=== PATIENT | female | born 1950 | race Caucasian/White ===

== ENCOUNTER → 2018-05-28 15:01 | Outpatient (CLI) | payer OTHER, SELFPAY ==
--- NOTE | 2018-05-28 | DI.MG.S_ITS ---
BILATERAL DIGITAL SCREENING MAMMOGRAM 3D/2D WITH CAD: 05/28/2018 CLINICAL: Routine screening. Comparison is made to exams dated: 05/26/2017 mammogram, 05/15/2017 mammogram, and 04/23/2016 mammogram - [facility]. There are scattered fibroglandular elements in both breasts. Current study was also evaluated with a Computer Aided Detection (CAD) system. There is a focal asymmetry in the left breast at 11 o'clock middle depth. No other significant masses, calcifications, or other findings are seen in either breast. IMPRESSION: INCOMPLETE: NEEDS ADDITIONAL IMAGING EVALUATION The focal asymmetry in the left breast is indeterminate. Additional views with possible ultrasound are recommended. This exam was interpreted at Station ID: [id number]. NOTE: For mammograms, a report in lay terms will be sent to the patient. Approximately 15% of breast malignancies will not be visualized mammographically. In the management of a palpable breast mass, a negative mammogram must not discourage biopsy of a clinically suspicious lesion. Electronically Signed By: Pura lozada/glen:05/28/2018 16:19:16 letter sent: Additional Imaging Needed ACR BI-RADS Category 0: Incomplete 3340F
== END ==
PROVIDERS: PCP Family Medicine; Visit Provider Family Medicine
DX: Z12.31 Encounter for screening mammogram for malignant neoplasm of breast (principal)
CPT/HCPCS: 77063; 77067

== ENCOUNTER → 2018-06-10 08:40 | Outpatient (CLI) | payer OTHER, SELFPAY ==
--- NOTE | 2018-06-10 | DI.US.S_ITS ---
LIMITED ULTRASOUND OF LEFT BREAST: 06/10/2018 CLINICAL: Patient returns today to evaluate a focal asymmetry in the left breast. Comparison is made to exams dated: 06/10/2018 mammogram, 05/28/2018 mammogram, 05/28/2018 mammogram, 05/15/2017 mammogram, 04/23/2016 mammogram, and 03/07/2015 mammogram - [facility]. Real-time and Doppler ultrasound of the left breast upper inner quadrant were performed. Valle scale images of the real-time examination were reviewed. There is a 0.5 x 0.4 x 0.3 cm oval circumscribed hypoechoic cyst with increased through transmission/posterior acoustic enhancement and no vascularity on Doppler ultrasound located in the left breast at 11 o'clock 3 cm from the nipple. There are fine internal non-vascular septations and minimal internal echogenic debris. This appears to correlate with the findings seen on mammography. IMPRESSION: BENIGN 1) 0.5 cm complicated cyst in the left breast at 11 o'clock 3 cm from the nipple, which appears to correlate with the findings seen on mammography. 2) There is no sonographic evidence of malignancy in the imaged left breast. Return to annual mammogram screening schedule is recommended. The patient is advised to monitor her breasts and to return sooner for re-evaluation should she feel anything grow or change. This exam was interpreted at Station ID: [id number]. Electronically Signed By: Bryan Engel M.D. ecl/:06/10/2018 10:17:28 letter sent: Normal Exam Ultrasound BI-RADS: 2 Benign
--- NOTE | 2018-06-10 | DI.MG.S_ITS ---
UNILATERAL LEFT DIGITAL DIAGNOSTIC MAMMOGRAM 3D/2D WITH ADDITIONAL VIEWS: 06/10/2018 CLINICAL: Additional evaluation requested from prior study. Comparison is made to exams dated: 05/28/2018 mammogram, 05/28/2018 mammogram, and 05/26/2017 mammogram - [facility]. There are scattered fibroglandular elements in left breast. Previously identified subcentimeter oval circumscribed focal asymmetry in the upper outer left breast near 11 o'clock position middle depth on comparison screening mammograms persists with additional views. IMPRESSION: INCOMPLETE: NEEDS ADDITIONAL IMAGING EVALUATION Previously identified subcentimeter oval circumscribed focal asymmetry in the upper outer left breast near 11 o'clock position middle depth on comparison screening mammograms persists with additional views. A targeted ultrasound is recommended for further evaluation, and will be performed immediately following this exam. This exam was interpreted at Station ID: [id number]. NOTE: For mammograms, a report in lay terms will be sent to the patient. Approximately 15% of breast malignancies will not be visualized mammographically. In the management of a palpable breast mass, a negative mammogram must not discourage biopsy of a clinically suspicious lesion. Electronically Signed By: Bryan Engel M.D. ecl/:06/10/2018 09:59:28 letter sent: Additional Imaging Needed ACR BI-RADS Category 0: Incomplete 3340F
== END ==
PROVIDERS: PCP Family Medicine; Visit Provider Family Medicine
DX: R92.8 Other abnormal and inconclusive findings on diagnostic imaging of breast (principal); N60.02 Solitary cyst of left breast
CPT/HCPCS: 76642; 77065; G0279

== ENCOUNTER → 2018-07-05 14:44 | Outpatient (CLI) | payer OTHER, SELFPAY | PROVIDERS: PCP Family Medicine; Visit Provider Family Medicine | DX: Z13.820 Encounter for screening for osteoporosis (principal); Z78.0 Asymptomatic menopausal state; Z82.62 Family history of osteoporosis; Z90.722 Acquired absence of ovaries, bilateral | CPT/HCPCS: 77080 ==

== ENCOUNTER → 2018-08-27 14:12 | Outpatient (CLI) | payer OTHER, SELFPAY ==
--- NOTE | 2018-08-27 | DI.RAD.S_ITS ---
PROCEDURE: XR KNEE RT 1TO2V INDICATIONS: BILATERAL KNEE PAIN TECHNIQUE: 2 views of the knee were acquired. This exam includes sunrise and lateral views. COMPARISON: [facility], , KNEE 3V LEFT, 03/13/2015, 14:35. FINDINGS: Bones: No fractures or dislocations. Mild lateral patellar subluxation, similar in extent compared to the contralateral side. No dislocation. No suspicious bony lesions. Soft tissues: Trace joint effusion. No suspicious soft tissue calcifications. IMPRESSION: Mild, symmetric lateral patellar subluxation with contralateral side, most likely physiologic. Trace right joint effusion. Dictated by: Jocelyn Collins M.D. on 08/27/2018 at 15:20 Approved by: Jocelyn Collins M.D. on 08/27/2018 at 15:21
--- NOTE | 2018-08-27 | DI.RAD.S_ITS ---
PROCEDURE: XR KNEE LT 1TO2V INDICATIONS: BILATERAL KNEE PAIN TECHNIQUE: 2 views of the knee were acquired. This exam includes sunrise and lateral views. COMPARISON: [facility], , KNEE 3V LEFT, 03/13/2015, 14:35. FINDINGS: Bones: No fractures or dislocations. Mild lateral patellar subluxation without dislocation. No suspicious bony lesions. Soft tissues: No joint effusion. No suspicious soft tissue calcifications. IMPRESSION: Mild lateral patellar subluxation. No other bony abnormalities. Dictated by: Jocelyn Collins M.D. on 08/27/2018 at 15:19 Approved by: Jocelyn Collins M.D. on 08/27/2018 at 15:20
--- NOTE | 2018-08-27 | DI.RAD.S_ITS ---
PROCEDURE: XR KNEE STANDING BI INDICATIONS: BILATERAL KNEE PAIN TECHNIQUE: AP standing view of each knee COMPARISON: [facility], , KNEE 3V LEFT, 03/13/2015, 14:35. FINDINGS: Bones: No acute fractures or dislocations. [id number] asymmetric medial compartment joint space loss in the right knee with trace marginal spur formation. Normally maintained left knee joint spaces. No suspicious bony lesions. Soft tissues: No suspicious soft tissue calcification. IMPRESSION: Asymmetric right medial compartment joint space loss with early osseous remodeling. Dictated by: Jocelyn Collins M.D. on 08/27/2018 at 16:32 Approved by: Jocelyn Collins M.D. on 08/27/2018 at 16:33
== END ==
PROVIDERS: PCP Family Medicine; Referring Provider Orthopaedic Surgery; Visit Provider Family Medicine
DX: M25.561 Pain in right knee (principal); M25.562 Pain in left knee; S83.012A Lateral subluxation of left patella, initial encounter; S83.011A Lateral subluxation of right patella, initial encounter
CPT/HCPCS: 73560; 73565

== ENCOUNTER 2019-06-06 14:08 | Outpatient (RCR) | payer OTHER, SELFPAY ==
--- NOTE | 2019-06-06 16:38 | PT.OIE ---
Current Diagnoses Unsteadiness on feet (06/06/19) Dizziness and giddiness (06/06/19) Visit Care Team Role Provider Type Monisha Christopher MD Primary Care Provider Physician Specialty: Family Practice Address: [address] [place] [address] [place], [address] Email: [email or web address] Maximo Daniels MD Attending Provider Physician Referring Provider Specialty: Ear, Nose, Throat Address: [address] [place] [address], [id number] Email: [email or web address] Physical Therapy Initial Evaluation PT-OP-A Visit Information Start: 06/06/19 14:18 Freq: Status: Active Protocol: Document 06/06/19 14:30 EG (Rec: 06/06/19 15:36 EG [email or web address]) Out-Patient Physical Therapy Visit Information Visit Information Visit Type Initial Evaluation Visit Start Time 14:30 Visit Stop Time 15:20 Total Visit Minutes 50 Visit Number 1 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 She reports that she had to take flagyl for her diverticultis and by the end of her time taking flaggil, her symptoms were worse than the actual disease. She would get dizzy standing up from sitting and had multiple symptoms of dizziness that have gotten much better since taking the medication. At that point, she had to take the medication several times a year. The last time taking the medication was in 2017 and currently the patient is taking probiotics and fiber pills with no more divirticulitis. Currently, the patient reports that she has not so much dizziness but more a feeling of unsteadiness and like she is going to pitch forward when on top of stairs. She mentions that this has happened whenever she is on top of steep stairs such as at the [employer] game and in order to feel steady, she needs to touch things. Patient does have stairs on side of property but she doesn't have to do these everyday and that stairs that are cery steep are what affect her opposed to stairs that are gradually descending. The patient reports that 75%-80% of time, she feels dizzy going down steep stairs. She thinks that it is possible her knees may play a role in walking down stairs because she is not as agile as she used to be. Patient denies any recent large falls and history of neck pain. Prior Treatments and Tests ENT Doctor Treatment Goals Patient/Caregiver Goals Patient would like to be less off balance when going down stairs. Personal Factors Other Personal Factors That May Effect Patient is hesitant about Therapy/Recovery scheduling due to Coronovirus History of Diverticulitis High Blood Pressure PT-OP-C Subjective Start: 06/06/19 14:18 Freq: Status: Active Protocol: Document 06/06/19 14:30 EG (Rec: 06/06/19 16:21 EG [email or web address]) Patient Questionnaires Dizziness Handicap Inventory DHI Score 6 DHI Functional Impairment 1 to 19% Impaired (Score 1-19) PT-OP-D Balance Start: 06/06/19 14:18 Freq: Status: Active Protocol: Document 06/06/19 14:30 EG (Rec: 06/06/19 16:21 EG [email or web address]) OP-PT Balance Assessment Standing Balance Static Standing Balance Ability Normal Dynamic Standing Balance Ability Normal Device Used Foam Pad Standing Balance Comments Standing with feet together, eyes open Standing with feet together, eyes closed Standing with feet together on foam pad, eyes open Standing with feet together on foam pad, eyes closed Balance Tests mCTSIB mCTSIB Position 1 30 sec mCTSIB Position 2 30 sec mCTSIB Position 3 30 sec mCTSIB Position 4 5 sec with need for touch down , found balance and held for 25 sec Babin Fall Scale Copyright Permission PT-OP-O Vestibular Start: 06/06/19 14:18 Freq: Status: Active Protocol: Document 06/06/19 14:30 EG (Rec: 06/06/19 16:21 EG [email or web address]) Vestibular Assessment Screening Tests Vestibular Artery Screen Negative Visual Testing Smooth Pursuits Horizontal - Smooth Pursuits Vertical - Saccades Horizontal - Saccades Vertical - Gaze Evoked Nystagmus With Fixation Negative Gaze Evoked Nystagmus Without Fixation Negative Thrust Head Negative DVA (Line Degradation) 2 Head Shake Negative Spontaneous Nystagmus Negative Vestibulo-Ocular Reflex (VOR1) Positive Vestibulo-Ocular Reflex Cancellation Negative Comments Vestibular Comments VORx1 experienced blurriness turning head to R Dizziness assessed on top of cement stairs - slight feeling of off balance but not overwhelming feeling she experiences at times No dizziness associated with therapy stairs PT-OP-Q Treatments Start: 06/06/19 14:18 Freq: Status: Active Protocol: Document 06/06/19 14:30 EG (Rec: 06/06/19 16:21 EG [email or web address]) Neuro Re-Education Treatment Balance Activities Feet Together, EC, foam pad Details Feet together, arms crossed, feet together, eyes closed ( foam pad used) Surface stable and foam pad Equipment blue foam pad Reps/Duration 30 sec to 2 min Comments Given for HEP Told to do in corner with chair in front for balance Vestibular Rehabilitation VORx1 Details Horizontal and Vertical Movements Reps/Duration 1 min side/side and up/down Comments given for HEP stare at letter on note pad PT-OP-T Assessment and Plan Start: 06/06/19 14:18 Freq: Status: Active Protocol: Document 06/06/19 14:30 EG (Rec: 06/06/19 16:21 EG [email or web address]) Physical Therapy Assessment Rehab Potential Rehabilitation Potential Excellent Evaluation Complexity Number of Personal Factors/Comorbidities 3 or More Number of Body Systems Impaired 4 or More Clinical Presentation at Evaluation Stable Impairments Impairments Activity Tolerance,Balance, Functional Activities, Vestibular Goals HEP Impairment HEP Battery Tester Field Goal (LTG) Patient will have independent HEP to increase vestibular function as well as strengthen visual and somatosensory function with no increase in symptoms in 6 weeks. LTG Duration 6 weeks Stairs Tolerance Impairment Stairs Tolerance Battery Tester Field Goal (LTG) Patient will decrease episodes of unsteadiness going down steep stairs by 75% in 6 weeks . LTG Duration 6 weeks Assessment Summary Assessment Patient is an otherwise healthy 69 year old female who reports to physical therapy for the feeling of unsteadiness when walking down steep stairs. Patient tested negative for all but one vestibular hypofunction tests with a complaint of blurriness of VORx1 with no complaint of dizziness. Patient appears to be visually dependent for balance and experiences unsteadiness when patient's vision is compromised. Patient is reliant on somatosensory system when vision is impaired . Patient will benefit from skilled therapies to increase vestibular system function to improve stability and balance when vision and somatosensory systems are compromised in order to perform steep stairs. Physical Therapy Plan Frequency and Duration Frequency of Treatment Every Other Week Duration of Treatment 6 weeks Plan of Care Start Date 06/06/19 Plan of Care End Date 07/18/19 Therapeutic Interventions Therapeutic Interventions Balance Training,Coordination Training,Home Exercise Program ,Neuromuscular Re-education, Patient/Caregiver Education, Self-Care/Home Management, Therapeutic Activities, Therapeutic Exercises, Vestibular Rehabilitation Next Visit Focus/Plan Next Note Type Treatment Note Next Visit Plan Assess SLS and walking while turning head. Assess HEP. Progress as tolerated I, Adamaris Shook DPT, supervised all treatment performed by, and agreed with the plan of care, as performed by Maine Wilks, SOWMYA.
--- NOTE | 2019-06-06 16:38 | PT.OPPOC ---
Physical, Occupational & Speech Therapy At [facility] Current Diagnoses Unsteadiness on feet (06/06/19) Dizziness and giddiness (06/06/19) Visit Care Team Role Provider Type Monisha Christopher MD Primary Care Provider Physician Specialty: Family Practice Address: [address] [place] [address], [id number] Email: [email or web address] Maximo Daniels MD Attending Provider Physician Referring Provider Specialty: Ear, Nose, Throat Address: [address] [place] [address], [id number] Email: [email or web address] Plan Of Care PT-OP-T Assessment and Plan Start: 06/06/19 14:18 Freq: Status: Active Protocol: Document 06/06/19 14:30 EG (Rec: 06/06/19 16:21 EG [email or web address]) Physical Therapy Assessment Rehab Potential Rehabilitation Potential Excellent Evaluation Complexity Number of Personal Factors/Comorbidities 3 or More Number of Body Systems Impaired 4 or More Clinical Presentation at Evaluation Stable Impairments Impairments Activity Tolerance,Balance, Functional Activities, Vestibular Goals HEP Impairment HEP Detention Goal (LTG) Patient will have independent HEP to increase vestibular function as well as strengthen visual and somatosensory function with no increase in symptoms in 6 weeks. LTG Duration 6 weeks Stairs Tolerance Impairment Stairs Tolerance Detention Goal (LTG) Patient will decrease episodes of unsteadiness going down steep stairs by 75% in 6 weeks . LTG Duration 6 weeks Assessment Summary Assessment Patient is an otherwise healthy 69 year old female who reports to physical therapy for the feeling of unsteadiness when walking down steep stairs. Patient tested negative for all but one vestibular hypofunction tests with a complaint of blurriness of VORx1 with no complaint of dizziness. Patient appears to be visually dependent for balance and experiences unsteadiness when patient's vision is compromised. Patient is reliant on somatosensory system when vision is impaired . Patient will benefit from skilled therapies to increase vestibular system function to improve stability and balance when vision and somatosensory systems are compromised in order to perform steep stairs. Physical Therapy Plan Frequency and Duration Frequency of Treatment Every Other Week Duration of Treatment 6 weeks Plan of Care Start Date 06/06/19 Plan of Care End Date 07/18/19 Therapeutic Interventions Therapeutic Interventions Balance Training,Coordination Training,Home Exercise Program ,Neuromuscular Re-education, Patient/Caregiver Education, Self-Care/Home Management, Therapeutic Activities, Therapeutic Exercises, Vestibular Rehabilitation Next Visit Focus/Plan Next Note Type Treatment Note Next Visit Plan Assess SLS and walking while turning head. Assess HEP. Progress as tolerated Plan of Care Dates Plan of Care Start Date 06/06/19 Plan of Care End Date 07/18/19 IAdamaris DPT, supervised all treatment performed by, and agreed with the plan of care, as performed by Maine Wilks, SOWMYA. Electronically Signed by: Adamaris Shook, PT 06/06/19 [id number] Please Sign and Return: I have reviewed this Plan of Care and certify that the skilled therapy services above are required to meet the patient?s needs. Physician Signature Date Printed Name and Credentials Clinical Instructor Signature Printed Name and Credentials
--- NOTE | 2019-11-10 07:19 | PT.OPDS ---
Current Diagnoses Unsteadiness on feet (06/06/19) Dizziness and giddiness (06/06/19) Visit Care Team Role Provider Type Monisha Christopher MD Primary Care Provider Physician Specialty: Family Practice Address: [address] [place] [address], [facility] [place], [address] Email: [email or web address] Maximo Daniels MD Attending Provider Physician Referring Provider Specialty: Ear, Nose, Throat Address: [address] [place] [address], [id number] Email: [email or web address] Visit Number Visit Number 1 Discharge Summary PT-OP-B Current Condition Start: 06/06/19 14:18 Freq: Status: Active Protocol: Document 06/06/19 14:30 EG (Rec: 06/06/19 14:45 EG [id number]) Current Condition History of Current Condition Onset Date 06/06/2019 Current Complaints Feeling of Dizziness looking down stairs History of Current Condition Patient reports that she never had a problem with dizziness until she was diagnosed with diverticulitis years ago. She reports that she had to take flagyl for her diverticultis and by the end of her time taking flaggil, her symptoms were worse than the actual disease. She would get dizzy standing up from sitting and had multiple symptoms of dizziness that have gotten much better since taking the medication. At that point, she had to take the medication several times a year. The last time taking the medication was in 2017 and currently the patient is taking probiotics and fiber pills with no more divirticulitis. Currently, the patient reports that she has not so much dizziness but more a feeling of unsteadiness and like she is going to pitch forward when on top of stairs. She mentions that this has happened whenever she is on top of steep stairs such as at the [employer] game and in order to feel steady, she needs to touch things. Patient does have stairs on side of property but she doesn't have to do these everyday and that stairs that are cery steep are what affect her opposed to stairs that are gradually descending. The patient reports that 75%-80% of time, she feels dizzy going down steep stairs. She thinks that it is possible her knees may play a role in walking down stairs because she is not as agile as she used to be. Patient denies any recent large falls and history of neck pain. Prior Treatments and Tests ENT Doctor Treatment Goals Patient/Caregiver Goals Patient would like to be less off balance when going down stairs. Personal Factors Other Personal Factors That May Effect Patient is hesitant about Therapy/Recovery scheduling due to Coronovirus History of Diverticulitis High Blood Pressure PT-OP-C Subjective Start: 06/06/19 14:18 Freq: Status: Active Protocol: Document 06/06/19 14:30 EG (Rec: 06/06/19 16:21 EG [id number]) Patient Questionnaires Dizziness Handicap Inventory DHI Score 6 DHI Functional Impairment 1 to 19% Impaired (Score 1-19) PT-OP-D Balance Start: 06/06/19 14:18 Freq: Status: Active Protocol: Document 06/06/19 14:30 EG (Rec: 06/06/19 16:21 EG [email or web address]) OP-PT Balance Assessment Standing Balance Static Standing Balance Ability Normal Dynamic Standing Balance Ability Normal Device Used Foam Pad Standing Balance Comments Standing with feet together, eyes open Standing with feet together, eyes closed Standing with feet together on foam pad, eyes open Standing with feet together on foam pad, eyes closed Balance Tests mCTSIB mCTSIB Position 1 30 sec mCTSIB Position 2 30 sec mCTSIB Position 3 30 sec mCTSIB Position 4 5 sec with need for touch down , found balance and held for 25 sec Babin Fall Scale Copyright Permission PT-OP-O Vestibular Start: 06/06/19 14:18 Freq: Status: Active Protocol: Document 06/06/19 14:30 EG (Rec: 06/06/19 16:21 EG [id number]) Vestibular Assessment Screening Tests Vestibular Artery Screen Negative Visual Testing Smooth Pursuits Horizontal - Smooth Pursuits Vertical - Saccades Horizontal - Saccades Vertical - Gaze Evoked Nystagmus With Fixation Negative Gaze Evoked Nystagmus Without Fixation Negative Thrust Head Negative DVA (Line Degradation) 2 Head Shake Negative Spontaneous Nystagmus Negative Vestibulo-Ocular Reflex (VOR1) Positive Vestibulo-Ocular Reflex Cancellation Negative Comments Vestibular Comments VORx1 experienced blurriness turning head to R Dizziness assessed on top of cement stairs - slight feeling of off balance but not overwhelming feeling she experiences at times No dizziness associated with therapy stairs PT-OP-T Assessment and Plan Start: 06/06/19 14:18 Freq: Status: Active Protocol: Document 11/10/19 07:19 MB (Rec: 11/10/19 07:19 MB [id number]) Physical Therapy Plan Discharge Physical Therapy Discharge Reasons No Longer Attending PT Discharge Comments Pt has not been seen since before COVID closure. Clinic has left message to inquire about con't PT and pt has not returned call. Will d/c PT.
== END 2019-11-10 13:14 ==
LOC: PHYS 14:08
PROVIDERS: PCP Family Medicine; Referring Provider Otolaryngology; Visit Provider Otolaryngology
DX: R42 Dizziness and giddiness (principal); R26.81 Unsteadiness on feet
CPT/HCPCS: 97161

== ENCOUNTER → 2019-06-14 15:18 | Outpatient (CLI) | payer OTHER, SELFPAY ==
--- NOTE | 2019-06-14 | DI.MG.S_ITS ---
BILATERAL DIGITAL SCREENING MAMMOGRAM 3D/2D WITH CAD: 06/14/2019 CLINICAL: Routine screening. Comparison is made to exams dated: 06/10/2018 mammogram, 05/28/2018 mammogram, and 05/28/2018 mammogram - [facility]. There are scattered fibroglandular elements in both breasts. Current study was also evaluated with a Computer Aided Detection (CAD) system. There is a biopsy site marker on the right breast. There is a 0.6 cm oval equal density focal asymmetry in the left breast at 12 o'clock anterior depth. This is more prominent. There also is a new 0.7 cm irregular equal density asymmetry in the left breast middle depth superior region seen on the mediolateral oblique view only. No other significant masses, calcifications, or other findings are seen in either breast. IMPRESSION: INCOMPLETE: NEEDS ADDITIONAL IMAGING EVALUATION The 0.6 cm oval equal density focal asymmetry in the left breast at 12 o'clock anterior depth is indeterminate. Additional views with possible ultrasound are recommended. The new 0.7 cm irregular equal density asymmetry in the left breast middle depth superior region seen on the mediolateral oblique view only is indeterminate. Additional views with possible ultrasound are recommended. This exam was interpreted at Station ID: [id number]. NOTE: For mammograms, a report in lay terms will be sent to the patient. Approximately 15% of breast malignancies will not be visualized mammographically. In the management of a palpable breast mass, a negative mammogram must not discourage biopsy of a clinically suspicious lesion. Electronically Signed By: Prashant castanon/glen:06/14/2019 16:43:05 letter sent: Additional Imaging Needed ACR BI-RADS Category 0: Incomplete 3340F
== END ==
PROVIDERS: PCP Family Medicine; Referring Provider Family Medicine; Visit Provider Family Medicine
DX: Z12.31 Encounter for screening mammogram for malignant neoplasm of breast (principal)
CPT/HCPCS: 77063; 77067

== ENCOUNTER → 2019-06-23 14:36 | Outpatient (CLI) | payer OTHER, SELFPAY ==
--- NOTE | 2019-06-23 | DI.MG.S_ITS ---
UNILATERAL LEFT DIGITAL DIAGNOSTIC MAMMOGRAM 3D/2D WITH ADDITIONAL VIEWS: 06/23/2019 CLINICAL: Additional evaluation requested from prior study. Comparison is made to exams dated: 06/14/2019 mammogram, 06/10/2018 mammogram, 05/28/2018 mammogram, and 05/28/2018 mammogram - [facility]. There are scattered fibroglandular elements in left breast. There is a 0.6 cm oval equal density focal asymmetry with a circumscribed margin in the left breast at 12 o'clock anterior depth. This is seen in additional views. The benign 0.7 cm irregular equal density asymmetry in the left breast middle depth superior region seen on the mediolateral oblique view only is no longer seen. This is consistent with summation artifact. No other significant masses or calcifications are seen in the breast. IMPRESSION: INCOMPLETE: NEEDS ADDITIONAL IMAGING EVALUATION The persistent 0.6 cm oval equal density focal asymmetry in the left breast at 12 o'clock anterior depth is indeterminate. An ultrasound is recommended for further evaluation and is scheduled to immediately follow this study. The previously described Mediolateral oblique view asymmetry in the left breast seen posterior and slightly superior to the above described 0.6cm oval focal asymmetry disperses with additional views and is consistent with summation artifact. This exam was interpreted at Station ID: [id number]. NOTE: For mammograms, a report in lay terms will be sent to the patient. Approximately 15% of breast malignancies will not be visualized mammographically. In the management of a palpable breast mass, a negative mammogram must not discourage biopsy of a clinically suspicious lesion. Electronically Signed By: Prashant Cole M.D. aty/:06/23/2019 15:22:27 ACR BI-RADS Category 0: Incomplete 3340F
--- NOTE | 2019-06-23 15:33 | DI.US.S_ITS ---
Patient Name: KARTHIKEYAN LAWSON date: 1950 Sex: F Attending Physician: Candi Indications: Date: 06/23/2019 15:28 At the request of: ELANN STEELE Procedure: US breast LT limited ULTRASOUND OF LEFT BREAST: 06/23/2019 CLINICAL: Patient returns for additional imaging over a suspected mass in the left breast. Comparison is made to exams dated: 06/14/2019 mammogram, 06/10/2018 ultrasound, 06/10/2018 mammogram, 05/28/2018 mammogram, 05/28/2018 mammogram, and 05/26/2017 mammogram - [facility]. Color flow and real-time ultrasound of the left breast were performed. Valle scale images of the real-time examination were reviewed. There is a 0.4 cm x 0.5 cm x 0.5 cm oval cyst in the left breast at 11 o'clock anterior depth 3 cm from the nipple. This oval cyst is hypoechoic with internal echoes. This may also represent a cluster of adjacent small cysts. Color flow imaging demonstrates that there is no vascularity present. This correlates with mammography findings. No other suspicious findings visualized in the imaged left breast. IMPRESSION: PROBABLY BENIGN The 0.4 cm x 0.5 cm x 0.5 cm oval cyst in the left breast resembles a complicated cyst versus cluster of small cysts, and is probably benign. A follow-up left mammogram and an ultrasound in 6 months is recommended to demonstrate stability. This exam was interpreted at Station ID: [id number]. Electronically Signed By: Prashant Cole M.D. aty/:06/23/2019 15:56:16 letter sent: Followup Recommended Ultrasound BI-RADS: 3 Probably benign
== END ==
PROVIDERS: PCP Family Medicine; Referring Provider Family Medicine; Visit Provider Family Medicine
DX: R92.8 Other abnormal and inconclusive findings on diagnostic imaging of breast (principal); N60.02 Solitary cyst of left breast
CPT/HCPCS: 76642; 77065; G0279

== ENCOUNTER → 2019-10-26 14:54 | Outpatient (CLI) | payer OTHER, SELFPAY ==
--- NOTE | 2019-10-26 15:13 | DI.ECHO.S_ITS ---
Echocardiogram Report + + :Name: KARTHIKEYAN LAWSON Study Date: 10/26/2019 Height: 62 in : :[facility] Weight: 175 lb : : Gender: Female BSA: 1.8 m2 : :: 1950 Age: 69 yrs BP: 140/86 mmHg: :Reason For Study: BRADYCARDIA : :Ordering Physician: IVETTE, : :LEANN Performed By: Ximena New : :Referring: LEANN STEELE : + + Interpretation Summary The left ventricle is normal in size and wall thickness. The ejection fraction is estimated to be 60-65%. There are no focal wall motion abnormalities. Diastolic parameters suggest probable normal left ventricular diastolic function and normal filling pressures. The right ventricle is normal in size and function. The right ventricular systolic pressure is estimated to be at least 37 mmHg based on an estimated right atrial pressure of 8 mm Hg. The left atrium is mildly dilated. Right atrial size is normal. There is mild mitral regurgitation. There is no other significant valvular heart disease. The ascending aorta is mildly enlarged. Procedure: A two-dimensional transthoracic echocardiogram with color flow and Doppler was performed. The study quality was technically adequate. The patient was in sinus bradycardia with heart rates between 44-50 bpm during the exam. Left Ventricle: The left ventricle is normal in size and wall thickness. The ejection fraction is estimated to be 60-65%. There are no focal wall motion abnormalities. Diastolic parameters suggest probable normal left ventricular diastolic function and normal filling pressures. Right Ventricle: The right ventricle is normal in size and function. Atria: The left atrium is mildly dilated. Right atrial size is normal. There is no Doppler evidence for an interatrial shunt. Mitral Valve: The mitral valve is normal in structure and function. There is mild mitral regurgitation. Aortic Valve: The aortic valve is trileaflet. The aortic valve opens well. There is no aortic valve stenosis. No aortic regurgitation is present. Tricuspid Valve: The tricuspid valve is normal in structure and function. There is trace tricuspid regurgitation. The right ventricular systolic pressure is estimated to be at least 37 mmHg based on an estimated right atrial pressure of 8 mm Hg. Pulmonic Valve: The pulmonic valve is not well seen, but is grossly normal. There is no pulmonic valvular regurgitation. There is no other significant valvular heart disease. Great Vessels: The aortic root is normal size. The ascending aorta is mildly enlarged. The IVC is dilated (diameter is greater than 2.1 cm) yet it collapses greater than 50% with a sniff. This suggests a right atrial pressure of 8 mm Hg. Pericardium/ Pleura There is no pericardial effusion. There is no pleural effusion. MMode/2D Measurements & Calculations LVIDd: 4.9 cm LVOT diam: 1.9 cm LVIDs: 3.5 cm Ao root diam: 3.1 cm FS: 28.1 % asc Aorta Diam: 3.6 cm EPSS: 0.37 cm Ao Arch Diam (Prox Trans): 3.2 cm IVSd: 0.72 cm LVPWd: 0.65 cm LV lewis. diameter/BSA (cm/m^2): 2.7 LV sys. diameter/BSA (cm/m^2): 1.9 LA A2 area: 22.6 cm2 RA long axis: 4.8 cm LA A4 area: 16.5 cm2 RA area: 15.2 cm2 LA length (vol): 4.9 cm RA vol: 40.7 ml LA vol: 64.6 ml RA : 22.5 ml/m2 LA vol index: 35.8 ml/m2 IVC diam: 2.1 cm RVD1 (basal): 2.6 cm TAPSE: 2.9 cm Doppler Measurements & Calculations Ao V2 max: 143.9 cm/sec LVOT Max Charlie: 101.9 cm/sec Ao V2 mean: 97.9 cm/sec LV V1 max P.2 mmHg Ao max P.3 mmHg LV V1 VTI: 25.3 cm Ao mean P.3 mmHg DWAYNE(I,D): 2.0 cm2 Ao V2 VTI: 35.8 cm DWAYNE(V,D): 2.0 cm2 sev ratio: 0.71 DWAYNE indexed to BSA (cm^2/m^2): 1.1 MV E max charlie: 90.9 cm/sec TR max charlie: 242.2 cm/sec MV A max charlie: 97.1 cm/sec TR max P.5 mmHg MV E/A: 0.94 PA V2 max: 81.7 cm/sec Med Peak E' Charlie: 8.6 cm/sec PA V2 mean: 58.2 cm/sec E/E' med: 10.5 PA mean P.5 mmHg Lat Peak E' Charlie: 9.3 cm/sec PA pr(Accel): 34.5 mmHg E/E' lat: 9.8 E/e' average: 10.1 MV dec time: 0.18 sec SV(LVOT): 71.9 ml Reading Physician:05:09 PM
== END ==
PROVIDERS: PCP Family Medicine; Referring Provider Family Medicine; Visit Provider Family Medicine
DX: I34.0 Nonrheumatic mitral (valve) insufficiency (principal); I77.89 Other specified disorders of arteries and arterioles; R00.1 Bradycardia, unspecified
CPT/HCPCS: 93306

== ENCOUNTER → 2019-11-09 14:01 | Outpatient (CLI) | payer OTHER, SELFPAY ==
--- NOTE | 2019-12-01 11:00 | PM.CARDMON.1 ---
Stained Glass [facility] Report Referral & Results Date Patient Seen: 11/09/19 Requesting provider: Monisha Christopher Indication: Bradycardia Duration of monitoring (days): 13 Diary information: There was 1 patient triggered event and 1 patient diary entry Both these events were associated with atrial fibrillation which occurred during 2% of the monitoring. Data: Minimum heart rate identified was 28 beats per minute at 07:38 on 11/21/2019. Maximum sinus heart rate was 103 beats per minute at 13:41 on 11/21/2019 Maximum overall heart rate was 194 beats per minute at 21:17 on 11/16/2019 during a run of atrial fibrillation Less than 1% of identified beats rather ventricular supraventricular ectopic in origin Patient had 49 runs of SVT with the fastest being 169 beats per minute during a 4 beat run. The longest lasted 25.0 seconds at a rate of 121 beats per minute which suggest more likely atrial tachycardia Patient also had episodes of atrial fibrillation ranging from 78-190 4 beats per minute, the longest lasted 6 hours in 10 minutes at a rate of 137 beats per minute on average. Patient had 1 pause that was 4.8 seconds with evidence of an idioventricular rhythm during this pause. Impression: Patient with paroxysmal atrial fibrillation including a 6+ hour run Patient with a 4+ second pause with 80 ventricular rhythm as above Patient also with other supraventricular and ventricular dysrhythmias, as above Clinical correlation and possible cardiology consultation suggested.
== END ==
PROVIDERS: Family Provider Family Medicine; PCP Family Medicine; Referring Provider Family Medicine; Visit Provider Family Medicine
DX: R00.1 Bradycardia, unspecified (principal)
CPT/HCPCS: 0296T; 0298T

== ENCOUNTER → 2020-01-25 15:10 | Outpatient (CLI) | payer OTHER, SELFPAY ==
--- NOTE | 2020-01-25 15:11 | DI.MG.S_ITS ---
UNILATERAL LEFT DIGITAL DIAGNOSTIC MAMMOGRAM 3D/2D SHORT-TERM FOLLOW-UP: 01/25/2020 CLINICAL: Patient returns for a 6 month follow up of the left breast. Comparison is made to exams dated: 06/23/2019 mammogram, 06/14/2019 mammogram, and 06/10/2018 mammogram - [facility]. There are scattered fibroglandular elements in left breast. There is an oval low density mass with a circumscribed margin in the left breast at 11 o'clock anterior depth. This is not significantly changed. No other significant masses or calcifications are seen in the breast. IMPRESSION: INCOMPLETE: NEEDS ADDITIONAL IMAGING EVALUATION The oval low density mass in the left breast is indeterminate. An ultrasound is recommended. This exam was interpreted at Station ID: [id number]. NOTE: For mammograms, a report in lay terms will be sent to the patient. Approximately 15% of breast malignancies will not be visualized mammographically. In the management of a palpable breast mass, a negative mammogram must not discourage biopsy of a clinically suspicious lesion. Electronically Signed By: Bora nguyen/glen:01/25/2020 15:40:33 ACR BI-RADS Category 0: Incomplete [id number]
--- NOTE | 2020-01-25 15:12 | DI.US.S_ITS ---
LIMITED ULTRASOUND OF LEFT BREAST: 01/25/2020 CLINICAL: Patient returns today to evaluate a focal asymmetry in the left breast. Comparison is made to exams dated: 01/25/2020 mammogram, 06/23/2019 ultrasound, 06/23/2019 mammogram, 06/14/2019 mammogram, 06/10/2018 ultrasound, and 06/10/2018 mammogram - [facility]. Real-time ultrasound of the left breast 11 o'clock region was performed on the area of interest. There is a 0.5 cm x 0.5 cm x 0.5 cm oval cyst in the left breast at 11 o'clock anterior depth. This oval cyst is hypoechoic with a well-defined boundary and internal echoes. This abnormality is not significantly changed and correlates with mammography findings. IMPRESSION: PROBABLY BENIGN The 0.5 cm x 0.5 cm x 0.5 cm oval cyst in the left breast is consistent with a complicated cyst and is probably benign. Follow-up mammogram and ultrasound in 6 months is recommended. A follow-up mammogram and an ultrasound in 6 months is recommended to demonstrate stability. Patient will be due for screening mammography of the contralateral breast at that time. This exam was interpreted at Station ID: [id number]. Electronically Signed By: Bora nguyen/:01/25/2020 17:07:53 letter sent: Followup Recommended Ultrasound BI-RADS: 3 Probably benign
== END ==
PROVIDERS: Family Provider Family Medicine; PCP Family Medicine; Referring Provider Family Medicine; Visit Provider Family Medicine
DX: R92.8 Other abnormal and inconclusive findings on diagnostic imaging of breast (principal); N60.02 Solitary cyst of left breast
CPT/HCPCS: 76642; 77065; G0279

== ENCOUNTER → 2020-02-15 13:13 | Outpatient (CLI) | payer OTHER, SELFPAY ==
[2020-02-15 14:20] LABS: COVID19 -Nasal RAPID Negative (Negative)
== END ==
PROVIDERS: Family Provider Family Medicine; PCP Family Medicine; Visit Provider Physician Assistant
DX: Z11.59 Encounter for screening for other viral diseases (principal)
CPT/HCPCS: 87635

== ENCOUNTER → 2020-02-17 09:09 | Outpatient (CLI) | payer OTHER, SELFPAY ==
--- NOTE | 2020-02-17 17:31 | DI.NM.S_ITS ---
DATE OF SERVICE: 02/17/2020 PROCEDURE PERFORMED: Exercise treadmill stress and rest myocardial perfusion imaging study with gating to assess ejection fraction and regional wall motion. ORDERING PROVIDER: Sudhakar Butcher M.D. INDICATIONS: The patient is a 69-year-old female with paroxysmal atrial fibrillation and tachy-viri syndrome. CARDIAC STRESS: The patient was able to exercise for 8 minutes 6 seconds on a standard Lenin protocol suggesting very good exercise capacity with an WILFRIDO of - 35%. She had a normal heart rate and blood pressure response to exercise, achieving a maximum heart rate of 175 bpm (115% of her predicted maximum). She had no chest discomfort. Her resting ECG shows sinus bradycardia at [address]-segment abnormality. With stress, there are no obvious ST- segment abnormalities, although there is considerable motion artifact, and has occasional PACs, often in brief runs, and occasional PVCs, occasionally in couplets but no concerning sustained arrhythmia. At 6 minutes 56 seconds of exercise, at a heart rate of 126 bpm, 26.3 millicuries of technetium-99 Myoview were injected. The patient was imaged 15 minutes later, using a gated SPECT acquisition protocol. Earlier in the day, she was injected with 14.2 millicuries of technetium-99 Myoview at rest and was imaged 30 minutes later, again using a gated SPECT acquisition protocol. FINDINGS: 1. Raw Data: There is fair myocardial tracer uptake but dense breast shadows clearly produce some attenuation. Lung/heart ratio was normal at 0.39 with a normal TID ratio of 0.94. 2. Quantitative Gated SPECT: Post-stress ejection fraction is estimated at 79% without any focal wall motion abnormality and specifically the apex appears to have brisk contractility. The resting ejection fraction is 71% with a resting end-diastolic volume of 82 mL. 3. Myocardial Perfusion Imaging: Post-stress supine images show a fairly normal myocardial perfusion pattern although with mildly reduced tracer activity at the apex and the distal inferolateral wall, both of which completely resolved on prone imaging revealing a uniform, homogeneous perfusion pattern suggesting that these defects reflect attenuation artifact. The resting images show an identical perfusion pattern to that of the post-stress supine images without any areas of improvement. IMPRESSION: 1. Normal myocardial perfusion study. 2. Subtle fixed apical and distal inferolateral defect, all of which resolves on prone imaging, suggesting it reflects attenuation artifact. There is no compelling evidence for myocardial ischemia or previous myocardial infarction. 3. Normal left ventricular systolic function without any focal wall motion abnormality. 4. Very good exercise capacity without angina or ECG evidence of ischemia. She had occasional PACs, occasionally in brief runs, as well as PVCs in couplets and triplets, but no other complex arrhythmias. Pranay Perez - JUAN/sola/tommy doc#: [id number]/job#: [id number] dd: 02/17/2020 16:27:00 dt: 02/17/2020 17:00:00 DICTATING MD/COPIES TO: Lokesh Zepeda MD; Sudhakar Butcher MD COPIES MNE: ANUJ;
--- OUTSIDE RECORDS SUMMARY | 2020-05-15 16:26 | XMS_ITS | Referral Summary ---
:1950 Author Organization [facility] Address [address] [place] [address] Care Team Providers Name Role Phone Candi Primary Care Provider Reason for Referral Consultation (Routine) Status Reason Specialty Diagnoses / Referred By Referred To Procedures Contact Contact Closed Specialty Diagnoses Paroxysmal atrial fibrillation (CMS/HCC) Sudhakar Butcher [facility] Services Deja Doshi MD [address] [place] [address] [place] [address] [phone] [place], [place] Phone: [phone] Diagnostic Imaging (Routine) Status Reason Specialty Diagnoses / Referred By Referred To Procedures Contact Contact Pending Review Specialty Radiology Diagnoses SOB (shortness of breath) Sudhakar Butcher Services Procedures NM CARDIAC STRESS TEST EXERCISE MD Glenda Required [address] [place] [address] [address] [place] [address] Consultation (Urgent) Status Reason Specialty Diagnoses / Referred By Referred To Procedures Contact Contact Pending Review Specialty Cardiology Diagnoses Tachycardia-bradycardia syndrome (CMS/HCC) Sudhakar Butcher Ramy Services S., MD L., MD Required [address] [place] [address] [address] [place] [address] [place] [phone] Phone: Fax: Reason for Visit Reason Comments Palpitations Atrial Fibrillation Hypertension Evaluate and Treat (Routine) Status Reason Specialty Diagnoses / Procedures Referred By Keena paulson To Contact Contact Authorized Diagnoses Paroxysmal atrial fibrillation Supraventricular tachycardia Essential (primary) hypertension Monisha Christopher CARDIOLOGY Procedures FL OFFICE OUTPATIENT VISIT [facility] [address] [place] [address] [address], [place] [address] [address] [place], [place] Phone: [phone] Phone: [phone] Fax: Encounter Details Date Type Department Care Team Description 02/02/2020 Office Visit [facility] Sudhakar Butcher Paroxysmal atrial fibrillation (CMS/HCC) (Primary Dx); Shilpa Cardiology MD Glenda Essential hypertension; [address] Dyslipidemia; [address] [place] [address], [address] Tachycardia-bradycardia syndrome (CMS/HC C); D [place], [place] Palpitations; [place] [address] SOB (shortness of breath) [id number] Allergies Active Allergy Reactions Severity Noted Date Comments Adhesive Tape-Silicones 03/07/2016 Amoxicillin 02/02/2020 documented as of this encounter (statuses as of 02/07/2020) Medications Medication Sig Dispensed Refills Start End Date Status Date calcium carbonate Take 1 tablet 0 Active (CALCIUM 500 ORAL) by mouth daily 8 PSYLLIUM HUSK ORAL Take 2 0 A ctive capsules in AM 8 and 1 in PM Lactobac Take 2 0 Active no.41/Bifidobact capsules in AM 8 no.7 (PROBIOTIC-10 and 1 capsule ORAL) in PM cholecalciferol, 0 Act keshawn vitamin D3, (VITAMIN D3) 2,000 unit tablet lisinopril-hydrochl Take 1 tablet 0 Active orothiazide by mouth daily 9 (PRINZIDE,ZESTORETI C) 20-25 mg rosuvastatin Take 10 mg by 0 Act keshawn (CRESTOR) 10 mg mouth nightly tablet fluticasone Administer 1 0 Activ e propionate spray into (FLONASE) 50 each nostril mcg/actuation nasal as needed for spray rhinitis estradiol (VAGIFEM) Insert into 0 Active 10 mcg tablet the vagina once a week fexofenadine Take 180 mg by 0 Ac tive (BOLIVAR) 180 mg mouth as tablet needed ESTRADIOL ORAL Take 0.5 mg by 0 Active mouth daily docosahexaenoic Take 750 mg by 0 Active acid/epa (FISH OIL mouth daily ORAL) co-enzyme Q-10 30 Take 30 mg by 0 Active mg capsule mouth daily apixaban (ELIQUIS) Take 1 tablet 180 tablet 3 Active 5 mg tablet (5 mg total) 0 by mouth 2 (two) times a day estradiol (VAGIFEM) Insert into 0 02/02/20 Discontinued 10 mcg tablet the vagina 8 20 (Disc ontinued by another clinician) ALPRAZolam (XANAX) Take 0.25 mg 0 02/02/20 Discontinued 0.25 mg tablet by mouth as 20 (Di scontinued by needed for another anxiety clinician) acetaminophen Take 650 mg by 0 02/02/20 D iscontinued (TYLENOL) 650 mg 8 mouth every 12 20 (Discontinued by hr tablet (twelve) hours anoth er clinician) Procto-Med HC 2.5 % as needed 0 02/02/20 Discontinued rectal cream 0 20 (Discon tinued by another clinician) lidocaine/me-thomas/me Apply 0 02/03/20 Discontinued nthol/camph topically 20 (Discont inued by (JAZMYN-KARRI WITH anot her LIDOCAINE TOP) daisy machuca) documented as of this encounter (statuses as of 02/07/2020) Active Problems Problem Noted Date Paroxysmal atrial fibrillation 02/02/2020 Essential hypertension 02/02/2020 Dyslipidemia 02/02/2020 Sick sinus syndrome 02/02/2020 Palpitations 02/02/2020 SOB (shortness of breath) 02/02/2020 documented as of this encounter (statuses as of 02/07/2020) Social History Tobacco Use Types Packs/Day Years Used Date Never Smoker Smokeless Tobacco: Never Used Alcohol Use Drinks/Week oz/Week Comments Yes Sex Assigned at Date Recorded Not on file documented as of this encounter Last Filed Vital Signs Vital Sign Reading Time Taken Comments Blood Pressure 120/60 02/02/2020 3:53 PM PDT Pulse 44 02/02/2020 3:53 PM PDT Temperature - - Respiratory Rate - - Oxygen Saturation - - Inhaled Oxygen Concentration - - Weight 78.9 kg (174 lb) 02/02/2020 3:53 PM PDT Height 157.5 cm (5' 2) 02/02/2020 3:53 PM PDT Body Mass Index 31.83 02/02/2020 3:53 PM PDT documented in this encounter Patient Instructions Patient InstructionsSudhakar Butcher MD - 02/02/2020 3:40 PM PDT Patient Education A-fib (Atrial Fibrillation) WHAT YOU NEED TO KNOW: A-fib may come and go, or it may be a long-term condition. A-fib can cause blood clots, stroke, or heart failure. These conditions may become life-threatening. It is important to treat and manage a-fibto help prevent a blood clot, stroke, or heart failure. DISCHARGE INSTRUCTIONS: Call 911 for any of the following: ?? You have any of the following signs of a heart attack: ? Squeezing, pressure, or pain in your chest ? You may also have any of the following: ? Discomfort or pain in your back, neck, jaw, stomach, or arm ? Shortness of breath ? Nausea or vomiting ? Lightheadedness or a sudden cold sweat ?? You have any of the following signs of a stroke: ? Numbness or drooping on one side of your face ? Weakness in an arm or leg ? Confusion or difficulty speaking ? Dizziness, a severe headache, or vision loss Return to the emergency department if: You have any of the following signs of a blood clot: ?? You feel lightheaded, are short of breath, and have chest pain. ?? You cough up blood. ?? You have swelling, redness, pain, or warmth in your arm or leg. Contact your supervisory training specialist or healthcare provider if: ?? Your heart rate is more than 110 beats per minute. ?? You have new or worsening swelling in your legs, feet, ankles, or abdomen. ?? You are short of breath, even at rest. ?? You have questions or concerns about your condition or care. Medicines: You may need any of the following: ?? Heart medicines help control your heart rate or rhythm. You may need more than one medicine to treat your symptoms. ?? Blood thinners help prevent blood clots. Clots can cause strokes, heart attacks, and . The following are general safety guidelines to follow while you are taking a blood thinner: ? Watch for bleeding and bruising while you take blood thinners. Watch for bleeding from your gums or nose. Watch for blood in your urine and bowel movements. Use a soft washcloth on your skin, and a soft toothbrush to brush your teeth. This can keep your skin and gums from bleeding. If you shave, usean electric shaver. Do not play contact sports. ? Tell your dentist and other healthcare providers that you take a blood thinner. Wear a bracelet ornecklace that says you take this medicine. ? Do not start or stop any other medicines unless your healthcare provider tells you to. Many medicines cannot be used with blood thinners. ? Take your blood thinner exactly as prescribed by your healthcare provider. Do not skip does or take less than prescribed. Tell your provider right away if you forget to take your blood thinner, or ifyou take too much. ? Warfarin is a blood thinner that you may need to take. The following are things you should be aware of if you take warfarin: ?? Foods and medicines can affect the amount of warfarin in your blood. Do not make major changes toyour diet while you take warfarin. Warfarin works best when you eat about the same amount of vitaminK every day. Vitamin K is found in green leafy vegetables and certain other foods. Ask for more information about what to eat when you are taking warfarin. ?? You will need to see your healthcare provider for follow-up visits when you are on warfarin. You will need regular blood tests. These tests are used to decide how much medicine you need. ?? Antiplatelets , such as aspirin, help prevent blood clots. Take your antiplatelet medicine exactly as directed. These medicines make it more likely for you to bleed or bruise. If you are told to take aspirin, do not take acetaminophen or ibuprofen instead. ?? Take your medicine as directed. Contact your healthcare provider if you think your medicine is not helping or if you have side effects. Tell him or her if you are allergic to any medicine. Keep a list of the medicines, vitamins, and herbs you take. Include the amounts, and when and why you take them. Bring the list or the pill bottles to follow-up visits. Carry your medicine list with you in caseof an emergency. Follow up with your supervisory training specialist as directed: You will need regular blood tests and monitoring. Write down your questions so you remember to ask them during your visits. Manage A-fib: ?? Know your target heart rate. Learn how to take your pulse and monitor your heart rate. ?? Manage other health conditions. This includes high blood pressure, sleep apnea, thyroid disease,diabetes, and other heart conditions. Take medicine as directed and follow your treatment plan. ?? Limit or do not drink alcohol. Alcohol can make a-fib hard to manage. Ask your healthcare provider if it is safe for you to drink alcohol. A drink of alcohol is 12 ounces of beer, 5 ounces of wine,or 1?? ounces of liquor. ?? Do not smoke. Nicotine and other chemicals in cigarettes and cigars can cause heart and lung damage. Ask your healthcare provider for information if you currently smoke and need help to quit. E-cigarettes or smokeless tobacco still contain nicotine. Talk to your healthcare provider before you use these products. ?? Eat heart-healthy foods. Heart healthy foods will help keep your cholesterol low. These include fruits, vegetables, whole-grain breads, low-fat dairy products, beans, lean meats, and fish. Replace butter and margarine with heart- healthy oils such as olive oil and canola oil. ?? Maintain a healthy weight. Ask your healthcare provider how much you should weigh. Ask him or her to help you create a weight loss plan if you are overweight. ?? Exercise for 30 minutes most days of the week. Ask your healthcare provider about the best exercise plan for you. ?? Copyright [employer] 2019 Information is for End User's use only and may not be sold, redistributed or otherwise used for commercial purposes. All illustrations and images included in CareNotes?? are the copyrighted property of [employer] or [employer] The above information is an integration aide only. It is not intended as medical advice for individual conditions or treatments. Talk to your doctor, nurse or pharmacist before following any medical regimen to see if it is safe and effective for you. documented in this encounter Progress Notes Sudhakar Butcher MD - 02/02/2020 3:40 PM PDT Subjective Patient ID: Pranay Perez is a 69 y.o. female that had concerns including Palpitations, Atrial Fibrillation, and Hypertension. HPI: This 69 years old pleasant female who has a history of HTN, HLD, hyperglycemia, palpitation, ANABEL not using CPAP referred to us for cardiac evaluation. Patient was seen by PCP on September 19, 2019 and in the office pulse was 49. Blood pressure 128/74. Underwent echo and Holter monitor. 2D echo: October 26, 2019: LVEF 60 to 65%, normal diastolic function, normal RV, pulmonary artery systolic pressure 37 mmHg, mild MR, mild left atrium enlargement. During echo patient has sinus bradycardia rate about 44 to 50 bpm. Mild ascending aorta enlargement. Holter monitor for about 14 days in November 2019: Predominant rhythm was sinus with average heart rate 46, minimum 28 during 4.8-second pause happened at 7:30 AM on November 20 and maximum heart rate 194 during episode of A. fib on November 15 at about 9:17 PM. Overall A. fib burden was 2%. During A. fibaverage heart rate 137 and range 78 to 194 bpm. The longest episode lasted about 6 hours and 10 minutes. Total 49 short run of SVT seen as well. Overall rare PACs and PVCs. No sustained ventriculartachycardia. October 31, 2019: Hemoglobin 13.5, platelets 183, CRP 13.1, sodium 141, potassium 3.9, BUN 14, creatinine 0.87, normal AST, ALT, ESR 6, hemoglobin A1c 5.8. Total cholesterol 150, HDL 49, TG 8 0, LDL 85 With this background history today she came for cardiac evaluation. She has been having intermittent palpitation for years. She had palpitation in November when she was having a Holter monitor as well as in August this year. In August she felt palpitation for couple of hours. Her heart was beating irregular and funny feeling all over. No chest pain or significant shortness of breath or sweating. No previous history of myocardial infarction congestive heart failure rheumatic heart disease or congenitalheart disease. Denies any history of DVT or pulmonary embolism. She has sleep apnea but not using CPAP. No history of excessive alcohol intake or caffeine intake. Denies any active bleeding.No obvious crepitations or rhonchi Likely wandering pacemaker with heart rate 44 bpm, poor R wave progression, low voltage complexes inchest leads, nonspecific ST-T changes, QTC 4 2 6 ms. Past Medical History: Diagnosis Date ??? Arrhythmia ??? Arthritis ??? Atrial fibrillation (CMS/HCC) ??? Hyperlipidemia ??? Hypertension History reviewed. No pertinent surgical history. Family History Problem Relation Age of Onset ??? Hypertension Mother ??? COPD Mother ??? Heart disease Father Social History Socioeconomic History ??? Marital status: Spouse name: Not on file ??? Number of children: Not on file ??? Years of education: Not on file ??? Highest education level: Not on file Occupational History ??? Not on file Social Needs ??? Financial resource strain: Not on file ??? Food insecurity Worry: Not on file Inability: Not on file ??? Transportation needs Medical: Not on file Non-medical: Not on file Tobacco Use ??? Smoking status: Never Smoker ??? Smokeless tobacco: Never Used Substance and Sexual Activity ??? Alcohol use: Yes ??? Drug use: Yes Comment: CBD ??? Sexual activity: Not on file Lifestyle ??? Physical activity Days per week: Not on file Minutes per session: Not on file ??? Stress: Not on file Relationships ??? Social connections Talks on phone: Not on file Gets together: Not on file Attends anabaptism service: Not on file Active member of club or organization: Not on file Attends meetings of clubs or organizations: Not on file Relationship status: Not on file Other Topics Concern ??? Not on file Social History Narrative ??? Not on file Allergies Allergen Reactions ??? Adhesive Tape-Silicones ??? Amoxicillin Current Medication List Sig calcium carbonate (CALCIUM 500 ORAL) every 12 hours cholecalciferol, vitamin D3, (VITAMIN D3) 2,000 unit tablet co-enzyme Q-10 30 mg capsule Take 30 mg by mouth daily docosahexaenoic acid/epa (FISH OIL ORAL) Take 750 mg by mouth daily estradiol (VAGIFEM) 10 mcg tablet Insert into the vagina once a week ESTRADIOL ORAL Take 0.5 mg by mouth daily fexofenadine (BOLIVAR) 180 mg tablet Take 180 mg by mouth as needed fluticasone propionate (FLONASE) 50 mcg/actuation nasal spray Administer 1 spray into each nostril as needed for rhinitis Lactobac no.41/Bifidobact no.7 (PROBIOTIC-10 ORAL) PROBIOTIC CAPS lidocaine/me-thomas/menthol/camph (CBD-KINGS WITH LIDOCAINE TOP) Apply topically lisinopril-hydrochlorothiazide (PRINZIDE,ZESTORETIC) 20-25 mg Take 1 tablet by mouth daily PSYLLIUM HUSK ORAL 1 capsule every 12 hours rosuvastatin (CRESTOR) 10 mg tablet Take 10 mg by mouth nightly acetaminophen (TYLENOL) 650 mg 8 hr tablet (Discontinued) Take 650 mg by mouth every 12 (twelve) hours ALPRAZolam (XANAX) 0.25 mg tablet (Discontinued) Take 0.25 mg by mouth as needed for anxiety estradiol (VAGIFEM) 10 mcg tablet (Discontinued) Insert into the vagina Procto-Med HC 2.5 % rectal cream (Discontinued) as needed Review of Systems Constitutional: Negative for fatigue. HENT: Negative for hearing loss. Eyes: Negative for visual disturbance. Respiratory: Positive for shortness of breath. Negative for chest tightness. Cardiovascular: Positive for palpitations. Negative for chest pain and leg swelling. Gastrointestinal: Negative for blood in stool. Endocrine: Negative for polydipsia. Genitourinary: Negative for hematuria. Skin: Negative for rash. Neurological: Negative for dizziness, weakness and light-headedness. Hematological: Does not bruise/bleed easily. Psychiatric/Behavioral: Negative for agitation. The patient is nervous/anxious. Objective BP 120/60 (BP Location: Left arm, Patient Position: Sitting) Pulse (!) 44 Ht 1.575 m Wt 78.9 kg BMI 31.83 kg/m?? Physical Exam: General Appearance: Obese, pleasant, cooperative, no apparent distress HENT: No obvious jaundice, no xanthelasma Neck: No obvious JVD Respiratory: clear to auscultation and percussion, no rales or wheeze Cardiovascular: Bradycardic rhythm, S1-S2 normal, no S3 no S4, no murmur no significant murmur Pulses: No carotid bruit, no obvious abdominal bruit, no evidence of critical limb ischemia Abdomen: Nontender, no hepatosplenomegaly, no obvious pulsatile mass Extremities: No clubbing or cyanosis. Trace bilateral pedal edema Neuro: Alert oriented to time place and person, no obvious motor or sensory deficit. Psych: Appropriate affect, normal mentation and memory Skin: No gangrene or ulcer Assessment/Plan Diagnoses and all orders for this visit: Paroxysmal atrial fibrillation (CMS/HCC) Essential hypertension - ECG 12 Lead (Clinic - Same Day) Dyslipidemia Tachycardia-bradycardia syndrome (CMS/HCC) - *SRC MV Referral to Cardiology Palpitations Assessment/Plan Comments: It appears to be that patient has underlying tachybradycardia syndrome. She has paroxysmal A. fib and during A. fib she has significantly increased heart rate but when she is in sinus rhythm she is bradycardic. She is not on AV isabel or sinus isabel slowing medications. Likely she has underlying sick sinus. As per her Holter monitor she has 1 pause of about 4.8 seconds at about 7:30 AM on November 20. We do not have detailed tracings. She is a prediabetic and taking into consideration of diet, her chads 2 vascular score is about 4 hence she will need anticoagulation for stroke prevention. She agreed. We will start Eliquis 5 mg twice a day. She will need likely pacemaker insertion so that tachycardia therapy can be instituted without being worried about bradycardia. On 2D echo LV function was preserved. No critical valvular pathology. She will also benefit with exercise perfusion study.Will refer to Dr. Jensen. Preventive measures including weight loss, sleep apnea treatment and othertriggers discussed. In the interim, if patient develops worsening of cardiovascular symptoms, advised to call us. This note was generated utilizing voice recognition software. While attempts have been made to correct mistakes, common errors may occur, including substitution of words that sound phonetically similar to the intended word as well as random substitution errors. Please take this into consideration and use clinical context when necessary. Electronically signed by Sudhakar Butcher MD 02/02/2020 3:55 PM documented in this encounter Plan of Treatment Scheduled Orders Name Type Priority Associated Diagnoses Order S cheduroberto NM CARDIAC STRESS TEST Imaging Routine SOB (shortness of Expected: 02/09/2020, EXERCISE breath) Expires: 2021 Scheduled Referrals Name Type Priority Associated Diagnoses Order S chedule *SRC MV Referral to Outpatient Referral Routine Tachycardia-br adycard Ordered: Cardiology ia syndrome ([facility]) 2019 *SRC MV Referral to Outpatient Referral Routine Paroxysmal atr ial Ordered: Sleep Medicine fibrillation 02/02/2020 ([facility]) documented as of this encounter Procedures Procedure Name Priority Date/Time Associated Diagnosis Comme nts ECG 12-LEAD Routine 02/02/2020 5:18 PM Essential hypertensio n Results for this PDT procedure are i n the results section. documented in this encounter Results Magnesium Expires 12 Months (02/06/2020) Specimen Blood - Blood, Venous Narrative Performed At This result has an attachment that is no t available. ECG 12 Lead (Clinic - Same Day) (02/02/2020 5:18 PM PDT) Narrative Performed At This result has an attachment that is no t available. Result approved by Sudhakar Butcher MD on 02/02/20 documented in this encounter Visit Diagnoses Diagnosis Paroxysmal atrial fibrillation (CMS/[facility]) - Primary Atrial fibrillation Essential hypertension Unspecified essential hypertension Dyslipidemia Other and unspecified hyperlipidemia Tachycardia-bradycardia syndrome (CMS/HC C) Sinoatrial node dysfunction Palpitations SOB (shortness of breath) Shortness of breath documented in this encounter Insurance Payer Benefit Plan / Subscriber ID Effective Dates Phone Addre ss Type Group [facility] [id number] 2016-[id number]AN [facility] documented as of this encounter Advance Directives Documents on File Type Date Recorded Patient Wall Taper Explanati on Advance Directives and Living Will
== END ==
PROVIDERS: Family Provider Family Medicine; PCP Family Medicine; Referring Provider Family Medicine; Visit Provider Internal Medicine Cardiovascular Disease
DX: R06.02 Shortness of breath (principal); I48.0 Paroxysmal atrial fibrillation; I49.5 Sick sinus syndrome
CPT/HCPCS: 78452; 93017; A9502

== ENCOUNTER → 2020-06-29 14:10 | Outpatient (CLI) | payer OTHER, SELFPAY ==
--- NOTE | 2020-06-29 | DI.MG.S_ITS ---
BILATERAL DIGITAL DIAGNOSTIC MAMMOGRAM 3D/2D: 06/29/2020 CLINICAL: Short term follow up of the left breast, due for bilateral imaging. Comparison is made to exams dated: 01/25/2020 mammogram, 06/23/2019 mammogram, and 06/14/2019 mammogram - [facility]. There are scattered fibroglandular elements in both breasts. Redemonstration of previously described oval low density mass with a circumscribed margin in the left breast at 11 o'clock anterior depth. This is not significantly changed. No other significant masses, calcifications, or other findings are seen in either breast. IMPRESSION: INCOMPLETE: NEEDS ADDITIONAL IMAGING EVALUATION The stable oval low density mass in the left breast is indeterminate. An ultrasound is recommended for further evaluation and is scheduled to immediately follow this examination. This exam was interpreted at Station ID: [id number]. NOTE: For mammograms, a report in lay terms will be sent to the patient. Approximately 15% of breast malignancies will not be visualized mammographically. In the management of a palpable breast mass, a negative mammogram must not discourage biopsy of a clinically suspicious lesion. Electronically Signed By: Prashant Cole M.D. aty/:06/29/2020 14:51:30 ACR BI-RADS Category 0: Incomplete [id number]
--- NOTE | 2020-06-29 | DI.US.S_ITS ---
ULTRASOUND OF LEFT BREAST: 06/29/2020 CLINICAL: Patient returns today to evaluate a focal asymmetry in the left breast. Comparison is made to exams dated: 06/29/2020 mammogram, 01/25/2020 ultrasound, 01/25/2020 mammogram, 06/23/2019 ultrasound, 06/23/2019 mammogram, and 06/14/2019 mammogram - [facility]. Color flow and real-time ultrasound of the left breast were performed. Valle scale images of the real-time examination were reviewed. There is a 0.5 cm x 0.4 cm x 0.5 cm oval cyst in the left breast at 11 o'clock anterior depth 3 cm from the nipple. This oval cyst is hypoechoic with a well-defined boundary and internal echoes. This abnormality is not significantly changed and correlates with mammography findings. IMPRESSION: PROBABLY BENIGN The 0.5 cm x 0.4 cm x 0.5 cm oval cyst in the left breast is consistent with a complicated cyst and is probably benign. A follow-up mammogram and an ultrasound in 12 months is recommended to document chcf stability. Findings and recommendations were conveyed to the patient during today's evaluation. This exam was interpreted at Station ID: [id number]. Electronically Signed By: Prashant Cole M.D. aty/:06/29/2020 16:11:11 letter sent: Followup Recommended Ultrasound BI-RADS: 3 Probably benign
== END ==
PROVIDERS: Family Provider Family Medicine; PCP Family Medicine; Referring Provider Family Medicine; Visit Provider Family Medicine
DX: R92.8 Other abnormal and inconclusive findings on diagnostic imaging of breast (principal); N60.02 Solitary cyst of left breast
CPT/HCPCS: 76642; 77066; G0279

== ENCOUNTER → 2020-10-15 10:42 | Outpatient (CLI) | payer OTHER, SELFPAY ==
[2020-10-15 12:09] LABS: Add Manual Diff / Slide Review NO; Basophils Absolute Auto 100 /uL (0-100); Eosinophils Absolute Auto 100 /uL (0-450); Eosinophils Percent Auto 1.6 % (2-4); Hematocrit 43.2 % (36-46); Hemoglobin 14.3 g/dL (12.0-16.0); Lymphocytes Absolute Auto 2200 /uL (1100-4500); Mean Corpuscular Hemoglobin 29.1 PG (26-34); Monocytes Absolute Auto 600 /uL (0-900); Monocytes Percent Auto 9.9 % (3-14); Neutrophils Absolute Auto 3000 /uL (1500-7000); Neutrophils Percent Auto 50.5 % (50-75); Platelet Count 201 X10^3/uL (150-400); Red Blood Cell Count 4.91 X10^6/uL (4.0-5.2); Red Cell Distribution Width 13.8 % (11.6-14.8)
[2020-10-15 12:18] LABS: Hemoglobin A1C% w Est Avg Glu 5.7 % (4.0-6.0)
[2020-10-15 12:44] LABS: Alanine Aminotransferase 30 IU/L (<35); Albumin 4.1 g/dL (3.5-5.0); Albumin Globulin Ratio 1.6 (1.0-2.8); Alkaline Phosphatase 58 U/L (38-126); Aspartate Aminotransferase 38 IU/L (14-36); Bilirubin Total 1.5 mg/dL (0.2-1.3); Blood Urea Nitrogen 20 mg/dL (7-17); Calcium 9.5 mg/dL (8.4-10.2); Carbon Dioxide 30 mmol/L (22-32); Chloride 104 mmol/L (98-107); Cholesterol 210 mg/dL (140-199); Estimated Glomerular Filt Rate > 60.0 mL/min (>60); Globulin 2.6 g/dL (1.7-4.1); Glucose 105 mg/dL (80-110); HDL Cholesterol 49 mg/dL (40-60); HEMOLYSIS < 15 (0-50); LDL Cholesterol Calculated 138 mg/dL (<100); Sodium 139 mmol/L (137-145); Total Protein 6.7 g/dL (6.3-8.2); Triglycerides 115 mg/dL (35-150)
[2020-10-15 13:26] LABS: Thyroid Stimulating Hormone 2.93 uIU/mL (0.47-4.68)
== END ==
PROVIDERS: Family Provider Family Medicine; PCP Family Medicine; Referring Provider Family Medicine; Visit Provider Family Medicine
DX: R73.9 Hyperglycemia, unspecified (principal); I10 Essential (primary) hypertension; E78.5 Hyperlipidemia, unspecified; I48.0 Paroxysmal atrial fibrillation
CPT/HCPCS: 36415; 80053; 80061; 83036; 84443; 85025

== ENCOUNTER → 2021-01-28 11:12 | Outpatient (CLI) | payer OTHER, SELFPAY ==
--- NOTE | 2021-01-28 | DI.RAD.S_ITS ---
PROCEDURE: XR CHEST 2V INDICATIONS: SHORTNESS OF BREATH TECHNIQUE: 2 views of the chest were acquired. COMPARISON: [facility], , CHEST 2 VIEW, 08/28/2006, 15:53. FINDINGS: Surgical changes and devices: Interval placement of a left cardiac device. Lungs and pleura: Lungs are clear. No pleural effusions or pneumothorax. Mediastinum: Mediastinal contours are normal. Heart size is normal. Bones and chest wall: No suspicious bony abnormalities. Soft tissues appear unremarkable. IMPRESSION: No acute cardiopulmonary abnormality Dictated by: Kristopher Laguna M.D. on 01/28/2021 at 11:28 Approved by: Kristopher Laguna M.D. on 01/28/2021 at 11:28
== END ==
PROVIDERS: Family Provider Family Medicine; PCP Family Medicine; Referring Provider Family Medicine; Visit Provider Family Medicine
DX: R06.02 Shortness of breath (principal)
CPT/HCPCS: 71046

== ENCOUNTER → 2021-02-25 13:01 | Outpatient (CLI) | payer OTHER, SELFPAY ==
[2021-02-25 14:14] LABS: COVID19 -Nasal RAPID Negative (Negative)
== END ==
PROVIDERS: Family Provider Family Medicine; PCP Family Medicine; Referring Provider Internal Medicine; Visit Provider Internal Medicine
DX: Z20.822 Contact with and (suspected) exposure to COVID-19 (principal)
CPT/HCPCS: 87635; C9803

== ENCOUNTER → 2021-02-25 13:03 | Outpatient (CLI) | payer OTHER, SELFPAY ==
--- NOTE | 2021-02-27 09:03 | PM.PFT.1 ---
Pulmonary Function Test Referral & Results Date Patient Seen: 02/25/21 Requesting provider: Monisha Christopher Results: The spirometry demonstrates an FVC of 2.99 L which is 103% of predicted. The FEV1 was measured at 2.41 L which is 110% of predicted. The FEV1/FVC ratio was 80 which is 105% of predicted. Following the administration of bronchodilator there was a 34% improvement in FEF 25-75% and 8% improvement in FEV1 Lung volumes show an SVC of 3.15 L which is 114% of predicted. The diffusing capacity was measured at 19.75 which is 86% of predicted. No hemoglobin value was provided, so no correction for potential anemia could be made, if appropriate. The maximum voluntary ventilation was normal Interpretation: This study demonstrates normal pulmonary function. There is some evidence of improvement in spirometry post bronchodilator as above.
== END ==
PROVIDERS: Family Provider Family Medicine; PCP Family Medicine; Referring Provider Family Medicine; Visit Provider Family Medicine
DX: Z20.822 Contact with and (suspected) exposure to COVID-19 (principal); R06.02 Shortness of breath
CPT/HCPCS: 87635; 94060; 94726; 94729; C9803

== ENCOUNTER → 2021-04-25 17:17 | Outpatient (CLI) | payer OTHER, SELFPAY ==
--- NOTE | 2021-04-25 | DI.RAD.S_ITS ---
PROCEDURE: XR ELBOW LT MIN 3V INDICATIONS: SWELLING, CELLULITIS OF LEFT OF UPPER LIMB TECHNIQUE: 3 views of the elbow were acquired. COMPARISON: None. FINDINGS: Bones: No fractures or dislocations. No bony erosive changes. No suspicious bony lesions. Soft tissues: No elbow joint effusion. No suspicious soft tissue calcifications. IMPRESSION: No elbow fracture or dislocation. No significant joint effusion. No radiographic evidence of osteomyelitis. Dictated by: Naldo Reynolds M.D. on 04/25/2021 at 20:48 Approved by: Naldo Reynolds M.D. on 04/25/2021 at 20:49
[2021-04-25 18:10] LABS: Add Manual Diff / Slide Review NO; Basophils Absolute Auto 100 /uL (0-100); Basophils Percent Auto 0.8 % (0-2); Eosinophils Absolute Auto 100 /uL (0-450); Eosinophils Percent Auto 1.9 % (2-4); Hematocrit 41.9 % (36-46); Hemoglobin 14.1 g/dL (12.0-16.0); Lymphocytes Absolute Auto 2600 /uL (1100-4500); Lymphocytes Percent Auto 35.4 % (25-40); Mean Corpuscular HGB Conc 33.6 % (30-36); Mean Corpuscular Hemoglobin 29.1 PG (26-34); Mean Corpuscular Volume 86.8 fL (80-100); Monocytes Absolute Auto 800 /uL (0-900); Monocytes Percent Auto 10.6 % (3-14); Neutrophils Absolute Auto 3800 /uL (1500-7000); Neutrophils Percent Auto 51.3 % (50-75); Platelet Count 204 X10^3/uL (150-400); Red Blood Cell Count 4.83 X10^6/uL (4.0-5.2); Red Cell Distribution Width 14.3 % (11.6-14.8); White Blood Cell Count 7.4 X10^3/uL (4.5-11.0)
[2021-04-25 18:25] LABS: Blood Urea Nitrogen 19 mg/dL (7-17); C-Reactive Protein Quant < 0.5 mg/dL (<1.0); Calcium 9.4 mg/dL (8.4-10.2); Carbon Dioxide 31 mmol/L (22-32); Chloride 103 mmol/L (98-107); Estimated Glomerular Filt Rate 58.2 mL/min (>60); Glucose 87 mg/dL (80-110); HEMOLYSIS < 15 (0-50); Potassium 3.9 mmol/L (3.4-5.1); Sodium 139 mmol/L (137-145); Uric Acid 4.8 mg/dL (2.5-6.2)
[2021-04-25 18:29] LABS: Erythrocyte Sedimentation Rate 3 MM/HR (0-20)
== END ==
PROVIDERS: Family Provider Family Medicine; PCP Family Medicine; Referring Provider Family Medicine; Visit Provider Family Medicine
DX: M79.89 Other specified soft tissue disorders (principal); L03.114 Cellulitis of left upper limb
CPT/HCPCS: 36415; 73080; 80048; 84550; 85025; 85651; 86140

== ENCOUNTER → 2021-05-02 17:03 | Outpatient (CLI) | payer OTHER, SELFPAY ==
--- NOTE | 2021-05-02 17:05 | DI.US.S_ITS ---
PROCEDURE: US PERIPH VENOUS UP EXTREM LT INDICATIONS: Clinical concern for DVT TECHNIQUE: Real-time imaging, as well as color and pulse Doppler interrogation, was performed of the left upper extremity deep veins from the inferior neck to the antecubital fossa. COMPARISON: None. FINDINGS: The internal jugular vein, visualized portions of the subclavian vein, axillary, and brachial veins are free of intraluminal thrombus. Where physically possible, the veins are normally compressible. Color and pulse Doppler demonstrate normal intraluminal flow, with expected phasicity and pulsatility. Additional scanning of the cephalic and basilic veins of the superficial system demonstrate normal compressibility, without thrombus. However, the left cephalic vein becomes small caliber, with branches making it to small superficial vessels. Pacer wires are seen in the left subclavian vein. IMPRESSION: No findings of deep venous thrombosis can be seen. Pacer wires are noted. Dictated by: Cliff Felix M.D. on 05/03/2021 at 8:16 Approved by: Cliff Felix M.D. on 05/03/2021 at 8:18
== END ==
PROVIDERS: Family Provider Family Medicine; PCP Family Medicine; Referring Provider Family Medicine; Visit Provider Family Medicine
DX: M79.89 Other specified soft tissue disorders (principal); Z95.0 Presence of cardiac pacemaker
CPT/HCPCS: 93971

== ENCOUNTER → 2021-06-13 14:09 | Outpatient (CLI) | payer OTHER, SELFPAY ==
--- NOTE | 2021-06-13 | DI.RAD.S_ITS ---
PROCEDURE: XR CHEST 2V INDICATIONS: Shortness of breath TECHNIQUE: 2 views of the chest were acquired. COMPARISON: [facility], , XR CHEST 2V, 01/28/2021, 11:13. FINDINGS: Surgical changes and devices: Stable appearance and positioning of dual chamber left cardiac pacer. Lungs and pleura: Lungs are clear. No pleural effusions or pneumothorax. Mediastinum: Mediastinal contours are normal. Heart size is normal. Bones and chest wall: No suspicious bony abnormalities. Soft tissues appear unremarkable. IMPRESSION: No acute cardiopulmonary disease. Dictated by: Juan Kwan RRA Interpreted: Naldo Reynolds MD on 06/13/2021 at 16:13 Transcribed by: MAGY on 06/13/2021 at 16:13 Approved by: Naldo Reynolds M.D. on 06/13/2021 at 16:43
--- NOTE | 2021-06-13 | DI.US.S_ITS ---
PROCEDURE: US EXTREMITY NONVASC UPPER LT INDICATIONS: CELLULITIS TECHNIQUE: Real-time scanning was performed of the left upper arm and elbow, with image documentation. COMPARISON: None. FINDINGS: There is no discrete fluid collection within the left elbow or the upper arm in the region of pain. IMPRESSION: No sonographic evidence for abscess or fluid collection amenable to drainage. Dictated by: Pura Mulligan M.D. on 06/13/2021 at 16:00 Approved by: Pura Mulligan M.D. on 06/13/2021 at 16:03
== END ==
PROVIDERS: Family Provider Family Medicine; PCP Family Medicine; Referring Provider Family Medicine; Visit Provider Family Medicine
DX: R06.02 Shortness of breath (principal); M79.89 Other specified soft tissue disorders; L03.114 Cellulitis of left upper limb
CPT/HCPCS: 71046; 76882

== ENCOUNTER → 2021-07-03 13:26 | Outpatient (CLI) | payer OTHER, SELFPAY ==
--- NOTE | 2021-07-03 | DI.MG.S_ITS ---
BILATERAL DIGITAL DIAGNOSTIC MAMMOGRAM 3D/2D: 07/03/2021 CLINICAL: Short term follow up of the left breast, due for bilateral imaging. Comparison is made to exams dated: 06/29/2020 ultrasound, 06/29/2020 mammogram, 01/25/2020 ultrasound, 01/25/2020 mammogram, 06/23/2019 ultrasound, and 06/23/2019 mammogram - [facility]. There are scattered fibroglandular elements in both breasts. There is a possible developing benign fine calcification in the right breast anterior depth lateral region seen on the craniocaudal view only. This is not seen in additional views. There is an oval low density mass with a circumscribed margin in the left breast at 11 o'clock anterior depth. This is not significantly changed. No other significant masses or calcifications are seen in either breast. IMPRESSION: INCOMPLETE: NEEDS ADDITIONAL IMAGING EVALUATION The oval low density mass in the left breast at 11 o'clock anterior depth is indeterminate. A targeted ultrasound is recommended and will immediately follow. This exam was interpreted at Station ID: [id number]. NOTE: For mammograms, a report in lay terms will be sent to the patient. Approximately 15% of breast malignancies will not be visualized mammographically. In the management of a palpable breast mass, a negative mammogram must not discourage biopsy of a clinically suspicious lesion. Electronically Signed By: Robbin Mann M.D. slc/:07/03/2021 14:21:05 ACR BI-RADS Category 0: Incomplete [id number]
--- NOTE | 2021-07-03 | DI.US.S_ITS ---
LIMITED ULTRASOUND OF LEFT BREAST: 07/03/2021 CLINICAL: 12 month follow-up of cysts. Comparison is made to exams dated: 07/03/2021 mammogram, 06/29/2020 ultrasound, 06/29/2020 mammogram, 01/25/2020 ultrasound, 06/10/2018 ultrasound, and 06/23/2019 ultrasound - . Color flow and real-time ultrasound of the left breast 11 o'clock region were performed. Valle scale images of the real-time examination were reviewed. There is a stable benign 0.6 cm x 0.6 cm x 0.4 cm oval cyst in the left breast at 11 o'clock anterior depth 3 cm from the nipple. This oval cyst is hypoechoic with a well-defined boundary and internal echoes. This correlates with mammography findings. Color flow imaging demonstrates that there is no vascularity present. IMPRESSION: BENIGN There is no sonographic evidence of malignancy. Complicated cyst in the left breast 11:00 measuring 0.6 cm demonstrates long-term stability and is benign. Exam findings were conveyed to the patient. A 1 year screening mammogram is recommended. This exam was interpreted at Station ID: [id number]. Electronically Signed By: Robbin Mann M.D. slc/:07/03/2021 14:44:31 letter sent: Normal Exam Ultrasound BI-RADS: 2 Benign
== END ==
PROVIDERS: Family Provider Family Medicine; PCP Family Medicine; Referring Provider Family Medicine; Visit Provider Family Medicine
DX: R92.8 Other abnormal and inconclusive findings on diagnostic imaging of breast (principal); N60.02 Solitary cyst of left breast
CPT/HCPCS: 76642; 77066; G0279

== ENCOUNTER → 2021-08-22 14:16 | Outpatient (CLI) | payer OTHER, SELFPAY ==
--- NOTE | 2021-08-22 14:18 | DI.CT.S_ITS ---
PROCEDURE: CT CHEST W CON INDICATIONS: Shortness of breath TECHNIQUE: After the administration of intravenous contrast, 5 mm thick sections acquired from the pulmonary apices to the posterior costophrenic angles. 1 mm axial lung, 5 mm thick coronal and sagittal reformats and 7 mm axial MIP were acquired. For radiation dose reduction, the following was used: automated exposure control, adjustment of mA and/or kV according to patient size. COMPARISON: [facility], CR, XR CHEST 2V, 06/13/2021, 15:47. FINDINGS: Image quality: Excellent. Lungs and pleura: No acute air space opacities. No pleural effusions or pneumothorax. Central and peripheral airways are patent and normal in caliber. Mediastinum: Heart size is mildly enlarged and there is a dual lead pace maker present. No pericardial effusion. No mediastinal or hilar adenopathy by size criteria. Thoracic aorta and central pulmonary arteries are normal in size. Esophagus is normal in caliber. Very small hiatal hernia. Bones and chest wall: Left chest pacemaker power pack. No suspicious bony lesions. No vertebral body compression fractures. No axillary or supraclavicular adenopathy by size criteria. Thyroid gland is partially imaged and appears normal . Abdomen: There is a 1.0 x 0.7 cm nodule arising from the medial limb of the right adrenal gland. Visualized upper abdominal solid organs appear otherwise normal. Upper abdominal bowel loops are normal in caliber. IMPRESSION: 1. No pulmonary parenchymal pathology. 2. Mild cardiomegaly with pacemaker in place. 3. Indeterminate 1.0 cm right adrenal nodule. Adrenal protocol CT is recommended as this was not previously mentioned (comparison images are unavailable currently). Dictated by: Jocelyn Collins M.D. on 08/22/2021 at 16:15 Approved by: Jocelyn Collins M.D. on 08/22/2021 at 16:23
== END ==
PROVIDERS: Family Provider Family Medicine; PCP Family Medicine; Referring Provider Family Medicine; Visit Provider Family Medicine
DX: R06.02 Shortness of breath (principal); I34.0 Nonrheumatic mitral (valve) insufficiency; I51.7 Cardiomegaly; E27.9 Disorder of adrenal gland, unspecified; Z95.0 Presence of cardiac pacemaker
CPT/HCPCS: 71260; Q9967

== ENCOUNTER → 2021-09-09 15:50 | Outpatient (ROUT) | payer OTHER, SELFPAY ==
[2021-09-09 16:40] LABS: NT-proBNP (BNP-Adult 18+) 107 pg/mL (<125)
== END ==
PROVIDERS: Family Provider Family Medicine; PCP Family Medicine; Visit Provider Family Medicine
DX: R06.02 Shortness of breath (principal)
CPT/HCPCS: 83880

== ENCOUNTER 2021-10-16 13:45 | Outpatient (RCR) | payer OTHER, SELFPAY ==
--- NOTE | 2021-07-08 16:13 | PT.OIE ---
Current Diagnoses Medial epicondylitis, unspecified elbow (07/08/21) Pain in left arm (07/08/21) Other specified soft tissue disorders (07/08/21) Visit Care Team Role Provider Type Monisha Christopher MD Attending Provider Physician Family Provider Primary Care Provider Referring Provider Specialty: Family Practice Address: [address] [place] [address] [place], [address] Email: [email or web address] Physical Therapy Initial Evaluation PT-OP-A Visit Information Start: 07/02/21 12:26 Freq: Status: Active Protocol: Document 07/08/21 09:49 AMB (Rec: 07/08/21 10:51 AMB [id number]) Out-Patient Physical Therapy Visit Information Visit Information Visit Type Initial Evaluation Visit Start Time 09:45 Visit Stop Time 10:30 Total Visit Minutes 45 Visit Number 1 PT-OP-B Current Condition Start: 07/02/21 12:26 Freq: Status: Active Protocol: Document 07/08/21 09:49 AMB (Rec: 07/08/21 10:51 AMB [id number]) Current Condition History of Current Condition Onset Date April 2021 Current Complaints L arm History of Current Condition Sore elbow was so sore I couldn't lift my purse, after a bug bite? Has noticed swelling and increased veins which she notes are progressing. Notices throbbing with raising the arm over the head, as well as heat from the shower. Throbbing present down into hand, with the worst over lateral epicondyle denies numbness and tingling. Pain worsens with gardening, but overall seems to be worst with over head movements. Prior Treatments and Tests Ultrasound to check for blood clots. Lab work, chest x-ray all normal per pt report. Personal Factors Other Personal Factors That May Effect Pacemaker, on eliquis Therapy/Recovery PT-OP-C Subjective Start: 07/02/21 12:26 Freq: Status: Active Protocol: Document 07/08/21 09:45 AMB (Rec: 07/08/21 12:07 AMB [id number]) Patient Questionnaires Quick Dash- Upper Extremity Quick Dash UE Score 18 Quick Dash UE Impairment 1 to 19% Impaired (Score 1-19) OP-PT Pain Assessment Location Left Arm Intensity 3 Scale Used Numeric (0 - 10) Pain Aggravating Factors Position,Exercise,Lifting PT-OP-J Posture/Palpation/Skin Start: 07/02/21 12:26 Freq: Status: Active Protocol: Document 07/08/21 09:45 AMB (Rec: 07/08/21 12:07 AMB [id number]) Skin Assessment Circumference Measurement 2 Location elbow (R) Measurement (Centimeters) 25 1 Location elbow (L) Measurement (Centimeters) 29 PT-OP-K Range of Motion Start: 07/02/21 12:26 Freq: Status: Active Protocol: Document 07/08/21 09:45 AMB (Rec: 07/08/21 12:07 AMB [id number]) Shoulder Goniometric Range of Motion Shoulder Left Active Testing Position Sitting Comments approx 160 on L, full on R PT-OP-M Strength Start: 07/02/21 12:26 Freq: Status: Active Protocol: Document 07/08/21 09:45 AMB (Rec: 07/08/21 12:41 AMB [id number]) Elbow/Forearm Strength Elbow and Forearm Manual Muscle Testing Right Flexion (C6) 5 Normal Extension (C7) 5 Normal Left Flexion (C6) 4+ Good+ Extension (C7) 4+ Good+ Wrist Strength Wrist Manual Muscle Testing Right Flexion (C7) 5 Normal Extension (C6) 5 Normal Left Flexion (C7) 5 Normal Extension (C6) 4 Good Comments pain with wrist extension PT-OP-Q Treatments Start: 07/02/21 12:26 Freq: Status: Active Protocol: Document 07/08/21 09:45 AMB (Rec: 07/08/21 12:07 AMB [id number]) Manual Therapy Treatment Taping 1 Body Location L forearm/elbow Treatment Focus swelling Type of Tape Kinesio Tape PT-OP-T Assessment and Plan Start: 07/02/21 12:26 Freq: Status: Active Protocol: Document 07/08/21 09:45 AMB (Rec: 07/08/21 13:00 AMB [id number]) Physical Therapy Assessment Rehab Potential Rehabilitation Potential Good Evaluation Complexity Number of Personal Factors/Comorbidities 1-2 Number of Body Systems Impaired 4 or More Clinical Presentation at Evaluation Evolving Impairments Impairments Edema,Pain,ROM,Strength Goals Two Impairment ROM Short Term Goal (STG) Pranay will raise her left arm overhead with 1/10 pain in her arm or less. STG Duration 4 weeks Shelter Goal (LTG) Pranay will improve her active left shoulder flexion to 170 degrees or more. LTG Duration 8 weeks One Impairment Swelling Short Term Goal (STG) Pranay will reduce her circumfrential measurement at her left elbow to within 2cm of the right. STG Duration 4 weeks Assessment Summary Assessment Pranay attends physical therapy with swelling throughout her left arm, worst at the lateral elbow today. Her symptoms are exacerbated by heat and lifting the arm above her head . Her shoulder ROM is mildly reduced into flexion and she did have pain at lateral epicondyle with resisted wrist flexion. She is concerned regarding vascular changes due to the color changes of her skin and new onset spider veins-- she is on eliquis-- ultrasound was negative for DVT. She will benefit from physical therapy for swelling management to reduce her symptoms and aid in further diagnosis of her pain. Physical Therapy Plan Frequency and Duration Frequency of Treatment 2x/Week Duration of Treatment 2 months Plan of Care Start Date 07/08/21 Plan of Care End Date 09/06/21 Therapeutic Interventions Therapeutic Interventions Home Exercise Program,Manual Therapy,Neuromuscular Re- education,Self-Care/Home Management,Therapeutic Activities,Therapeutic Exercises Modalities Cold Pack/Ice Massage,Electric Stimulation,Hot Packs, Iontophoresis,Ultrasound Other Therapeutic Interventions iontophoresis with dexamethasone Next Visit Focus/Plan Next Note Type Treatment Note Next Visit Plan Reassess how patient tolerated kinesiotape for swelling reduction. Review importance of icing, instruct further in swelling management. Begin stretching HEP.
--- NOTE | 2021-07-08 16:14 | PT.OPPOC ---
Physical, Occupational & Speech Therapy At [facility] Current Diagnoses Medial epicondylitis, unspecified elbow (07/08/21) Pain in left arm (07/08/21) Other specified soft tissue disorders (07/08/21) Visit Care Team Role Provider Type Monisha Christopher MD Attending Provider Physician Family Provider Primary Care Provider Referring Provider Specialty: Family Practice Address: [address] [place] [address], [facility] [place], [facility] Email: Plan Of Care PT-OP-T Assessment and Plan Start: 07/02/21 12:26 Freq: Status: Active Protocol: Document 07/08/21 09:45 AMB (Rec: 07/08/21 13:00 AMB [id number]) Physical Therapy Assessment Rehab Potential Rehabilitation Potential Good Evaluation Complexity Number of Personal Factors/Comorbidities 1-2 Number of Body Systems Impaired 4 or More Clinical Presentation at Evaluation Evolving Impairments Impairments Edema,Pain,ROM,Strength Goals Two Impairment ROM Short Term Goal (STG) Pranay will raise her left arm overhead with 1/10 pain in her arm or less. STG Duration 4 weeks Prison Goal (LTG) Pranay will improve her active left shoulder flexion to 170 degrees or more. LTG Duration 8 weeks One Impairment Swelling Short Term Goal (STG) Pranay will reduce her circumfrential measurement at her left elbow to within 2cm of the right. STG Duration 4 weeks Assessment Summary Assessment Pranay attends physical therapy with swelling throughout her left arm, worst at the lateral elbow today. Her symptoms are exacerbated by heat and lifting the arm above her head . Her shoulder ROM is mildly reduced into flexion and she did have pain at lateral epicondyle with resisted wrist flexion. She is concerned regarding vascular changes due to the color changes of her skin and new onset spider veins-- she is on eliquis-- ultrasound was negative for DVT. She will benefit from physical therapy for swelling management to reduce her symptoms and aid in further diagnosis of her pain. Physical Therapy Plan Frequency and Duration Frequency of Treatment 2x/Week Duration of Treatment 2 months Plan of Care Start Date 07/08/21 Plan of Care End Date 09/06/21 Therapeutic Interventions Therapeutic Interventions Home Exercise Program,Manual Therapy,Neuromuscular Re- education,Self-Care/Home Management,Therapeutic Activities,Therapeutic Exercises Modalities Cold Pack/Ice Massage,Electric Stimulation,Hot Packs, Iontophoresis,Ultrasound Other Therapeutic Interventions iontophoresis with dexamethasone Next Visit Focus/Plan Next Note Type Treatment Note Next Visit Plan Reassess how patient tolerated kinesiotape for swelling reduction. Review importance of icing, instruct further in swelling management. Begin stretching HEP. Plan of Care Dates Plan of Care Start Date 07/08/21 Plan of Care End Date 09/06/21 Electronically Signed by: Adamaris Shook, PT 07/08/21 0455 Please Sign and Return: I have reviewed this Plan of Care and certify that the skilled therapy services above are required to meet the patient?s needs. Physician Signature Date Printed Name and Credentials Clinical Instructor Signature Printed Name and Credentials
--- NOTE | 2021-07-10 11:02 | PT.OTN ---
Current Diagnoses Medial epicondylitis, unspecified elbow (07/10/21) Pain in left arm (07/10/21) Other specified soft tissue disorders (07/10/21) Physical Therapy Treatment Note PT-OP-A Visit Information Start: 07/02/21 12:26 Freq: Status: Active Protocol: Document 07/10/21 09:44 AMB (Rec: 07/10/21 11:02 AMB [id number]) Out-Patient Physical Therapy Visit Information Visit Information Visit Type Treatment Note Visit Start Time 09:45 Visit Stop Time 10:30 Total Visit Minutes 45 Visit Number 2 PT-OP-B Current Condition Start: 07/02/21 12:26 Freq: Status: Active Protocol: Document 07/08/21 09:49 AMB (Rec: 07/08/21 10:51 AMB [id number]) Current Condition History of Current Condition Onset Date April 2021 Current Complaints L arm History of Current Condition Sore elbow was so sore I couldn't lift my purse, after a bug bite? Has noticed swelling and increased veins which she notes are progressing. Notices throbbing with raising the arm over the head, as well as heat from the shower. Throbbing present down into hand, with the worst over lateral epicondyle denies numbness and tingling. Pain worsens with gardening, but overall seems to be worst with over head movements. Prior Treatments and Tests Ultrasound to check for blood clots. Lab work, chest x-ray all normal per pt report. Personal Factors Other Personal Factors That May Effect Pacemaker, on eliquis Therapy/Recovery PT-OP-C Subjective Start: 07/02/21 12:26 Freq: Status: Active Protocol: Document 07/08/21 09:45 AMB (Rec: 07/08/21 12:07 AMB [id number]) Patient Questionnaires Quick Dash- Upper Extremity Quick Dash UE Score 18 Quick Dash UE Impairment 1 to 19% Impaired (Score 1-19) OP-PT Pain Assessment Location Left Arm Intensity 3 Scale Used Numeric (0 - 10) Pain Aggravating Factors Position,Exercise,Lifting PT-OP-J Posture/Palpation/Skin Start: 07/02/21 12:26 Freq: Status: Active Protocol: Document 07/08/21 09:45 AMB (Rec: 07/08/21 12:07 AMB [id number]) Skin Assessment Circumference Measurement 2 Location elbow (R) Measurement (Centimeters) 25 1 Location elbow (L) Measurement (Centimeters) 29 PT-OP-K Range of Motion Start: 07/02/21 12:26 Freq: Status: Active Protocol: Document 07/08/21 09:45 AMB (Rec: 07/08/21 12:07 AMB [id number]) Shoulder Goniometric Range of Motion Shoulder Left Active Testing Position Sitting Comments approx 160 on L, full on R PT-OP-M Strength Start: 07/02/21 12:26 Freq: Status: Active Protocol: Document 07/08/21 09:45 AMB (Rec: 07/08/21 12:41 AMB [id number]) Elbow/Forearm Strength Elbow and Forearm Manual Muscle Testing Right Flexion (C6) 5 Normal Extension (C7) 5 Normal Left Flexion (C6) 4+ Good+ Extension (C7) 4+ Good+ Wrist Strength Wrist Manual Muscle Testing Right Flexion (C7) 5 Normal Extension (C6) 5 Normal Left Flexion (C7) 5 Normal Extension (C6) 4 Good Comments pain with wrist extension PT-OP-Q Treatments Start: 07/02/21 12:26 Freq: Status: Active Protocol: Document 07/10/21 09:44 AMB (Rec: 07/10/21 11:02 AMB [id number]) Therapeutic Exercises Supine Exercises 1 Supine Exercise Name fist pumps Reps/Minutes 5 Sidelying Exercises 1 Sidelying Exercise Name open book Reps/Minutes 2x15 Manual Therapy Treatment Soft Tissue Mobilization 1 Body Location L elbow>armpit>pacemaker scar massage Comments 1. massage lymphnodes 2. edema massage from elbow into chest 3. scar massage gentle Taping 1 Body Location L forearm/elbow Treatment Focus swelling Type of Tape Kinesio Tape PT-OP-T Assessment and Plan Start: 07/02/21 12:26 Freq: Status: Active Protocol: Document 07/10/21 09:44 AMB (Rec: 07/10/21 11:02 AMB [id number]) Physical Therapy Assessment Goals Two Impairment ROM Short Term Goal (STG) Pranay will raise her left arm overhead with 1/10 pain in her arm or less. STG Duration 4 weeks Health Plan Specialist Goal (LTG) Pranay will improve her active left shoulder flexion to 170 degrees or more. LTG Duration 8 weeks One Impairment Swelling Short Term Goal (STG) Pranay will reduce her circumfrential measurement at her left elbow to within 2cm of the right. STG Duration 4 weeks Assessment Summary Assessment Pranay had increased axial swelling and pain after taping but did feel like elbow swelling was better Physical Therapy Plan Next Visit Focus/Plan Next Note Type Treatment Note Next Visit Plan Review open book, k tape, self edema massage
--- NOTE | 2021-07-18 15:59 | PT.OTN ---
Current Diagnoses Medial epicondylitis, unspecified elbow (07/16/21) Pain in left arm (07/16/21) Other specified soft tissue disorders (07/16/21) Physical Therapy Treatment Note PT-OP-A Visit Information Start: 07/02/21 12:26 Freq: Status: Active Protocol: Document 07/16/21 10:30 AMB (Rec: 07/18/21 15:58 AMB [id number]) Out-Patient Physical Therapy Visit Information Visit Information Visit Type Treatment Note Visit Start Time 09:45 Visit Stop Time 10:30 Total Visit Minutes 45 Visit Number 3 PT-OP-B Current Condition Start: 07/02/21 12:26 Freq: Status: Active Protocol: Document 07/08/21 09:49 AMB (Rec: 07/08/21 10:51 AMB [id number]) Current Condition History of Current Condition Onset Date April 2021 Current Complaints L arm History of Current Condition Sore elbow was so sore I couldn't lift my purse, after a bug bite? Has noticed swelling and increased veins which she notes are progressing. Notices throbbing with raising the arm over the head, as well as heat from the shower. Throbbing present down into hand, with the worst over lateral epicondyle denies numbness and tingling. Pain worsens with gardening, but overall seems to be worst with over head movements. Prior Treatments and Tests Ultrasound to check for blood clots. Lab work, chest x-ray all normal per pt report. Personal Factors Other Personal Factors That May Effect Pacemaker, on eliquis Therapy/Recovery PT-OP-C Subjective Start: 07/02/21 12:26 Freq: Status: Active Protocol: Document 07/16/21 10:30 AMB (Rec: 07/18/21 15:58 AMB [id number]) OP-PT Subjective Patient Comments Patient Comments Pt is feeling better, continues to have pain with hot showers. PT-OP-J Posture/Palpation/Skin Start: 07/02/21 12:26 Freq: Status: Active Protocol: Document 07/08/21 09:45 AMB (Rec: 07/08/21 12:07 AMB [id number]) Skin Assessment Circumference Measurement 2 Location elbow (R) Measurement (Centimeters) 25 1 Location elbow (L) Measurement (Centimeters) 29 PT-OP-K Range of Motion Start: 07/02/21 12:26 Freq: Status: Active Protocol: Document 07/08/21 09:45 AMB (Rec: 07/08/21 12:07 AMB [id number]) Shoulder Goniometric Range of Motion Shoulder Left Active Testing Position Sitting Comments approx 160 on L, full on R PT-OP-M Strength Start: 07/02/21 12:26 Freq: Status: Active Protocol: Document 07/08/21 09:45 AMB (Rec: 07/08/21 12:41 AMB [id number]) Elbow/Forearm Strength Elbow and Forearm Manual Muscle Testing Right Flexion (C6) 5 Normal Extension (C7) 5 Normal Left Flexion (C6) 4+ Good+ Extension (C7) 4+ Good+ Wrist Strength Wrist Manual Muscle Testing Right Flexion (C7) 5 Normal Extension (C6) 5 Normal Left Flexion (C7) 5 Normal Extension (C6) 4 Good Comments pain with wrist extension PT-OP-Q Treatments Start: 07/02/21 12:26 Freq: Status: Active Protocol: Document 07/16/21 10:30 AMB (Rec: 07/18/21 15:58 AMB [id number]) Therapeutic Exercises Supine Exercises 1 Supine Exercise Name fist pumps Reps/Minutes 5 Sidelying Exercises 1 Sidelying Exercise Name open book Reps/Minutes 2x15 Manual Therapy Treatment Soft Tissue Mobilization 1 Body Location L elbow>armpit>pacemaker scar massage Comments 1. massage lymphnodes 2. edema massage from elbow into chest 3. scar massage gentle PT-OP-T Assessment and Plan Start: 07/02/21 12:26 Freq: Status: Active Protocol: Document 07/16/21 10:30 AMB (Rec: 07/18/21 15:58 AMB [id number]) Physical Therapy Assessment Goals Two Impairment ROM Short Term Goal (STG) Pranay will raise her left arm overhead with 1/10 pain in her arm or less. STG Duration 4 weeks Mcfp Goal (LTG) Pranay will improve her active left shoulder flexion to 170 degrees or more. LTG Duration 8 weeks One Impairment Swelling Short Term Goal (STG) Pranay will reduce her circumfrential measurement at her left elbow to within 2cm of the right. STG Duration 4 weeks Assessment Summary Assessment Pranay had some skin sensitivity with taping, did purchase a sleeve,but it is a bit long for her. Encouraged her in continued swelling management, she is going to see orthopedics, and is hesitant to schedule more PT until she hears what they have to say. Physical Therapy Plan Next Visit Focus/Plan Next Note Type Treatment Note Next Visit Plan Review open book, k tape, self edema massage
--- NOTE | 2021-07-30 12:52 | PT.OTN ---
Current Diagnoses Medial epicondylitis, unspecified elbow (07/30/21) Pain in left arm (07/30/21) Other specified soft tissue disorders (07/30/21) Physical Therapy Treatment Note PT-OP-A Visit Information Start: 07/02/21 12:26 Freq: Status: Active Protocol: Document 07/30/21 10:36 AMB (Rec: 07/30/21 11:34 AMB [id number]) Out-Patient Physical Therapy Visit Information Visit Information Visit Type Treatment Note Visit Start Time 09:45 Visit Stop Time 10:30 Total Visit Minutes 45 Visit Number 3 PT-OP-B Current Condition Start: 07/02/21 12:26 Freq: Status: Active Protocol: Document 07/08/21 09:49 AMB (Rec: 07/08/21 10:51 AMB [id number]) Current Condition History of Current Condition Onset Date April 2021 Current Complaints L arm History of Current Condition Sore elbow was so sore I couldn't lift my purse, after a bug bite? Has noticed swelling and increased veins which she notes are progressing. Notices throbbing with raising the arm over the head, as well as heat from the shower. Throbbing present down into hand, with the worst over lateral epicondyle denies numbness and tingling. Pain worsens with gardening, but overall seems to be worst with over head movements. Prior Treatments and Tests Ultrasound to check for blood clots. Lab work, chest x-ray all normal per pt report. Personal Factors Other Personal Factors That May Effect Pacemaker, on eliquis Therapy/Recovery PT-OP-C Subjective Start: 07/02/21 12:26 Freq: Status: Active Protocol: Document 07/30/21 12:41 AMB (Rec: 07/30/21 12:48 AMB [id number]) OP-PT Subjective Patient Comments Patient Comments Pt overall has been doing more with less pain. Gardening more, has been able to shower with less pain, has been doing self massage. Doesn't wear sleeve much, finds it really annoying, but open to learning how to kinesiotape self. PT-OP-J Posture/Palpation/Skin Start: 07/02/21 12:26 Freq: Status: Active Protocol: Document 07/08/21 09:45 AMB (Rec: 07/08/21 12:07 AMB [id number]) Skin Assessment Circumference Measurement 2 Location elbow (R) Measurement (Centimeters) 25 1 Location elbow (L) Measurement (Centimeters) 29 PT-OP-K Range of Motion Start: 07/02/21 12:26 Freq: Status: Active Protocol: Document 07/08/21 09:45 AMB (Rec: 07/08/21 12:07 AMB [id number]) Shoulder Goniometric Range of Motion Shoulder Left Active Testing Position Sitting Comments approx 160 on L, full on R PT-OP-M Strength Start: 07/02/21 12:26 Freq: Status: Active Protocol: Document 07/08/21 09:45 AMB (Rec: 07/08/21 12:41 AMB [id number]) Elbow/Forearm Strength Elbow and Forearm Manual Muscle Testing Right Flexion (C6) 5 Normal Extension (C7) 5 Normal Left Flexion (C6) 4+ Good+ Extension (C7) 4+ Good+ Wrist Strength Wrist Manual Muscle Testing Right Flexion (C7) 5 Normal Extension (C6) 5 Normal Left Flexion (C7) 5 Normal Extension (C6) 4 Good Comments pain with wrist extension PT-OP-Q Treatments Start: 07/02/21 12:26 Freq: Status: Active Protocol: Document 07/30/21 12:41 AMB (Rec: 07/30/21 12:48 AMB [id number]) Therapeutic Exercises Sidelying Exercises 1 Sidelying Exercise Name open book Reps/Minutes 2x15 Sitting Exercises 1 Sitting Exercise Name shoulder flexion/abd Resistance AROM Reps/Minutes 10 Comments tightness at end range, but not pain Manual Therapy Treatment Soft Tissue Mobilization 1 Body Location L elbow>armpit>pacemaker scar massage Comments 1. massage lymphnodes 2. edema massage from elbow into chest 3. scar massage gentle Taping 1 Body Location L forearm/elbow Treatment Focus swelling Type of Tape Kinesio Tape Comments instructed pt, pt could do one I strip if taping for edema is too complicated PT-OP-T Assessment and Plan Start: 07/02/21 12:26 Freq: Status: Active Protocol: Document 07/30/21 10:36 AMB (Rec: 07/30/21 11:34 AMB [id number]) Physical Therapy Assessment Goals Two Impairment ROM Short Term Goal (STG) Pranay will raise her left arm overhead with 1/10 pain in her arm or less. STG Duration MET Tight Rope Walker Goal (LTG) Pranay will improve her active left shoulder flexion to 170 degrees or more. LTG Duration 8 weeks One Impairment Swelling Short Term Goal (STG) Pranay will reduce her circumfrential measurement at her left elbow to within 2cm of the right. STG Duration 4 weeks Assessment Summary Assessment Pranay is doing better, swelling is coming down, but coloration changes in skin remain. Worst pain is around lateral elbow and triceps. Did continue to encourage her to return to normal activity as tolerated if it does not cause an increase in swelling. Pt reports she saw orthopedist who decided against cortisone, will watch and wait for now. Physical Therapy Plan Next Visit Focus/Plan Next Note Type Treatment Note Next Visit Plan Review open book, k tape, self edema massage
--- NOTE | 2021-08-01 15:44 | PT.OTN ---
Current Diagnoses Medial epicondylitis, unspecified elbow (08/01/21) Pain in left arm (08/01/21) Other specified soft tissue disorders (08/01/21) Physical Therapy Treatment Note PT-OP-A Visit Information Start: 07/02/21 12:26 Freq: Status: Active Protocol: Document 08/01/21 14:30 AMB (Rec: 08/01/21 15:43 AMB [id number]) Out-Patient Physical Therapy Visit Information Visit Information Visit Type Treatment Note Visit Start Time 14:30 Visit Stop Time 15:15 Total Visit Minutes 45 Visit Number 5 PT-OP-B Current Condition Start: 07/02/21 12:26 Freq: Status: Active Protocol: Document 07/08/21 09:49 AMB (Rec: 07/08/21 10:51 AMB [id number]) Current Condition History of Current Condition Onset Date April 2021 Current Complaints L arm History of Current Condition Sore elbow was so sore I couldn't lift my purse, after a bug bite? Has noticed swelling and increased veins which she notes are progressing. Notices throbbing with raising the arm over the head, as well as heat from the shower. Throbbing present down into hand, with the worst over lateral epicondyle denies numbness and tingling. Pain worsens with gardening, but overall seems to be worst with over head movements. Prior Treatments and Tests Ultrasound to check for blood clots. Lab work, chest x-ray all normal per pt report. Personal Factors Other Personal Factors That May Effect Pacemaker, on eliquis Therapy/Recovery PT-OP-C Subjective Start: 07/02/21 12:26 Freq: Status: Active Protocol: Document 08/01/21 14:30 AMB (Rec: 08/01/21 15:43 AMB [id number]) OP-PT Subjective Patient Comments Patient Comments Pranay reports she feels a bit nauseous the day of PT, but then feels fine after that, did notice a little bit of swelling in armpit, but not uncomfortable. PT-OP-J Posture/Palpation/Skin Start: 07/02/21 12:26 Freq: Status: Active Protocol: Document 07/08/21 09:45 AMB (Rec: 07/08/21 12:07 AMB [id number]) Skin Assessment Circumference Measurement 2 Location elbow (R) Measurement (Centimeters) 25 1 Location elbow (L) Measurement (Centimeters) 29 PT-OP-K Range of Motion Start: 07/02/21 12:26 Freq: Status: Active Protocol: Document 07/08/21 09:45 AMB (Rec: 07/08/21 12:07 AMB [id number]) Shoulder Goniometric Range of Motion Shoulder Left Active Testing Position Sitting Comments approx 160 on L, full on R PT-OP-M Strength Start: 07/02/21 12:26 Freq: Status: Active Protocol: Document 07/08/21 09:45 AMB (Rec: 07/08/21 12:41 AMB [id number]) Elbow/Forearm Strength Elbow and Forearm Manual Muscle Testing Right Flexion (C6) 5 Normal Extension (C7) 5 Normal Left Flexion (C6) 4+ Good+ Extension (C7) 4+ Good+ Wrist Strength Wrist Manual Muscle Testing Right Flexion (C7) 5 Normal Extension (C6) 5 Normal Left Flexion (C7) 5 Normal Extension (C6) 4 Good Comments pain with wrist extension PT-OP-Q Treatments Start: 07/02/21 12:26 Freq: Status: Active Protocol: Document 08/01/21 14:30 AMB (Rec: 08/01/21 15:43 AMB [id number]) Cardio Equipment Upper Body Ergometer (UBE) Duration (Minutes) 9 Other fwd/backward Therapeutic Exercises Supine Exercises 2 Supine Exercise Name shoulder PROM Reps/Minutes 5 Comments flexion, abd, ER Sidelying Exercises 1 Sidelying Exercise Name open book Reps/Minutes 2x15 Manual Therapy Treatment Soft Tissue Mobilization 1 Body Location L elbow>armpit>pacemaker scar massage Comments 1. massage lymphnodes 2. edema massage from elbow into chest 3. scar massage gentle Taping 1 Body Location forearm Treatment Focus lateral epicondyle Type of Tape Kinesio Tape Comments 1 strip with no stretch in the middle just distal to lateral epicondyle and then 50% stretch in both directions away. PT-OP-T Assessment and Plan Start: 07/02/21 12:26 Freq: Status: Active Protocol: Document 08/01/21 14:30 AMB (Rec: 08/01/21 15:43 AMB [id number]) Physical Therapy Assessment Goals Two Impairment ROM Short Term Goal (STG) Pranay will raise her left arm overhead with 1/10 pain in her arm or less. STG Duration MET Director Of Quality Goal (LTG) Pranay will improve her active left shoulder flexion to 170 degrees or more. LTG Duration 8 weeks One Impairment Swelling Short Term Goal (STG) Pranay will reduce her circumfrential measurement at her left elbow to within 2cm of the right. STG Duration 4 weeks Assessment Summary Assessment Pranay tolerated UBE well. Did add kinesiotape to support forearm today, as pt does continue to have swelling throughout the left UE, worst at elbow. Physical Therapy Plan Next Visit Focus/Plan Next Visit Plan Follow up on taping, continue HEP progression, edema massge
--- NOTE | 2021-08-28 16:53 | PT.OTN ---
Current Diagnoses Medial epicondylitis, unspecified elbow (08/28/21) Pain in left arm (08/28/21) Other specified soft tissue disorders (08/28/21) Physical Therapy Treatment Note PT-OP-A Visit Information Start: 07/02/21 12:26 Freq: Status: Active Protocol: Document 08/28/21 15:45 SAK (Rec: 08/28/21 16:48 SAK [id number]) Out-Patient Physical Therapy Visit Information Visit Information Visit Type Treatment Note Visit Start Time 15:20 Visit Stop Time 16:20 Total Visit Minutes 60 Visit Number 6 PT-OP-B Current Condition Start: 07/02/21 12:26 Freq: Status: Active Protocol: Document 07/08/21 09:49 AMB (Rec: 07/08/21 10:51 AMB [id number]) Current Condition History of Current Condition Onset Date April 2021 Current Complaints L arm History of Current Condition Sore elbow was so sore I couldn't lift my purse, after a bug bite? Has noticed swelling and increased veins which she notes are progressing. Notices throbbing with raising the arm over the head, as well as heat from the shower. Throbbing present down into hand, with the worst over lateral epicondyle denies numbness and tingling. Pain worsens with gardening, but overall seems to be worst with over head movements. Prior Treatments and Tests Ultrasound to check for blood clots. Lab work, chest x-ray all normal per pt report. Personal Factors Other Personal Factors That May Effect Pacemaker, on eliquis Therapy/Recovery PT-OP-C Subjective Start: 07/02/21 12:26 Freq: Status: Active Protocol: Document 08/28/21 15:45 SAK (Rec: 08/28/21 16:48 SAK [id number]) OP-PT Subjective Patient Comments Patient Comments swelling persists, compression sleeve not helpful, too tight , too long. Also difficulty with breathing, had CT chest and waiting for echo. Hasn't been wearing compression sleeve due to discomfort. Tape good first time but subsequent taping has caused blistering of skin. PT-OP-J Posture/Palpation/Skin Start: 07/02/21 12:26 Freq: Status: Active Protocol: Document 07/08/21 09:45 AMB (Rec: 07/08/21 12:07 AMB [id number]) Skin Assessment Circumference Measurement 2 Location elbow (R) Measurement (Centimeters) 25 1 Location elbow (L) Measurement (Centimeters) 29 PT-OP-K Range of Motion Start: 07/02/21 12:26 Freq: Status: Active Protocol: Document 07/08/21 09:45 AMB (Rec: 07/08/21 12:07 AMB [id number]) Shoulder Goniometric Range of Motion Shoulder Left Active Testing Position Sitting Comments approx 160 on L, full on R PT-OP-M Strength Start: 07/02/21 12:26 Freq: Status: Active Protocol: Document 07/08/21 09:45 AMB (Rec: 07/08/21 12:41 AMB [id number]) Elbow/Forearm Strength Elbow and Forearm Manual Muscle Testing Right Flexion (C6) 5 Normal Extension (C7) 5 Normal Left Flexion (C6) 4+ Good+ Extension (C7) 4+ Good+ Wrist Strength Wrist Manual Muscle Testing Right Flexion (C7) 5 Normal Extension (C6) 5 Normal Left Flexion (C7) 5 Normal Extension (C6) 4 Good Comments pain with wrist extension PT-OP-N Lymphedema Start: 08/28/21 16:50 Freq: Status: Active Protocol: Document 08/28/21 15:45 SAK (Rec: 08/28/21 16:53 [facility] [id number]) Lymphedema Measurements Upper Extremity Circumference Measurements left UE MCP 20 cm Dorsum of Hand 21.1 cm Wrist 17.6 cm - forearm: 28 elbow 29.2 upper arm 37.8 PT-OP-Q Treatments Start: 07/02/21 12:26 Freq: Status: Active Protocol: Document 08/28/21 15:45 [facility] (Rec: 08/28/21 16:48 [facility] [id number]) Manual Therapy Treatment Taping 1 Comments bandaging instead Lymphedema Treatment Manual Lymphatic Drainage Location left UE Duration 20 Comments emphasis on AAA and AAI pathways with patient instruction on self MLD Lymphedema Wrapping Body Location left UE Materials finger bandages, Trocofix F, Artiflex (2 rolls), Comprilan 6,8,10. Other encouraged active use of left UE while wearing compression Compression Garment Assessment Compression Garment Assessment Details discussed type, materials, options for compression level, donning including donning device option, adjustment of fit including use of rubber gloves. Patient to bring current compression sleeve next session. Patient Education Lymphedema Pathology verbal instruction Lymphedema Prevention verbal and written materials Lymphedema Precautions written materials Compression Garments patient ed as above Self Manual Lymphatic Drainage verbal instruction and educational video information given Sequential Lymphedema Exercises active use left UE encouraged. PT-OP-T Assessment and Plan Start: 07/02/21 12:26 Freq: Status: Active Protocol: Document 08/28/21 15:45 [facility] (Rec: 08/28/21 16:48 [facility] [id number]) Physical Therapy Assessment Goals Two Impairment ROM Short Term Goal (STG) Pranay will raise her left arm overhead with 1/10 pain in her arm or less. STG Duration MET Powdered Metal Supervisor Goal (LTG) Pranay will improve her active left shoulder flexion to 170 degrees or more. LTG Duration 8 weeks One Impairment Swelling Short Term Goal (STG) Pranay will reduce her circumfrential measurement at her left elbow to within 2cm of the right. STG Duration 4 weeks Assessment Summary Assessment Patient edema persists in left UE. Signs and symptoms consistent with idiopathic lymphedema, possibly triggered by bug bite. Today's treatment included education regarding lymphedema and treatment components. Given information regarding compression sleeve fitters and online website vendors as well as educational videos. shortened MLD treatment provided with patient education for self-massage, and again information regarding educational videos. Patient reports poor tolerance to compression sleeve (didn't have today but sounds like poor fit). Compression bandaging applied with attempt to bandage on welt treater side of compression due to patient sensitivity and encouraged to watch video regarding self-bandaging. Issued information regarding lymphedema precautions. Discussed different types, levels, and materials for compression sleeve. Patient to make appointment with [facility] for consultation and fitting with appropriate compression. Patient also given copy of today's circumferential measurements Physical Therapy Plan Next Visit Focus/Plan Next Visit Plan Evaluate response to today's treatment, answer questions. Continue with edema management .
--- NOTE | 2021-09-05 17:02 | PT.OTN ---
Current Diagnoses Medial epicondylitis, unspecified elbow (09/05/21) Pain in left arm (09/05/21) Other specified soft tissue disorders (09/05/21) Physical Therapy Treatment Note PT-OP-A Visit Information Start: 07/02/21 12:26 Freq: Status: Active Protocol: Document 09/05/21 16:00 AW (Rec: 09/05/21 17:02 AW [id number]) Out-Patient Physical Therapy Visit Information Visit Information Visit Type Treatment Note Visit Start Time 16:00 Visit Stop Time 16:45 Total Visit Minutes 45 Visit Number 7 Number of CUTLERY GRINDER Visits 0 PT-OP-B Current Condition Start: 07/02/21 12:26 Freq: Status: Active Protocol: Document 07/08/21 09:49 AMB (Rec: 07/08/21 10:51 AMB [id number]) Current Condition History of Current Condition Onset Date April 2021 Current Complaints L arm History of Current Condition Sore elbow was so sore I couldn't lift my purse, after a bug bite? Has noticed swelling and increased veins which she notes are progressing. Notices throbbing with raising the arm over the head, as well as heat from the shower. Throbbing present down into hand, with the worst over lateral epicondyle denies numbness and tingling. Pain worsens with gardening, but overall seems to be worst with over head movements. Prior Treatments and Tests Ultrasound to check for blood clots. Lab work, chest x-ray all normal per pt report. Personal Factors Other Personal Factors That May Effect Pacemaker, on eliquis Therapy/Recovery PT-OP-C Subjective Start: 07/02/21 12:26 Freq: Status: Active Protocol: Document 09/05/21 16:00 AW (Rec: 09/05/21 17:02 AW [id number]) OP-PT Subjective Patient Comments Patient Comments Pt had appointment at [facility] today to get measured for a compression sleeve. She was able to wear bandaging last week for only four hours. She felt claustrophobic, tight at the thumb and upper arm. Her arm turned bright red and she had to remove the bandaging for comfort. She did measure herself after she removed the bandages and she felt the measurements had decreased but forgot to bring her measurement form today. Recent CT scan did show a nodule on her adrenal gland and she will have follow up imaging. PT-OP-J Posture/Palpation/Skin Start: 07/02/21 12:26 Freq: Status: Active Protocol: Document 07/08/21 09:45 AMB (Rec: 07/08/21 12:07 AMB [id number]) Skin Assessment Circumference Measurement 2 Location elbow (R) Measurement (Centimeters) 25 1 Location elbow (L) Measurement (Centimeters) 29 PT-OP-K Range of Motion Start: 07/02/21 12:26 Freq: Status: Active Protocol: Document 07/08/21 09:45 AMB (Rec: 07/08/21 12:07 AMB [id number]) Shoulder Goniometric Range of Motion Shoulder Left Active Testing Position Sitting Comments approx 160 on L, full on R PT-OP-M Strength Start: 07/02/21 12:26 Freq: Status: Active Protocol: Document 07/08/21 09:45 AMB (Rec: 07/08/21 12:41 AMB [id number]) Elbow/Forearm Strength Elbow and Forearm Manual Muscle Testing Right Flexion (C6) 5 Normal Extension (C7) 5 Normal Left Flexion (C6) 4+ Good+ Extension (C7) 4+ Good+ Wrist Strength Wrist Manual Muscle Testing Right Flexion (C7) 5 Normal Extension (C6) 5 Normal Left Flexion (C7) 5 Normal Extension (C6) 4 Good Comments pain with wrist extension PT-OP-N Lymphedema Start: 08/28/21 16:50 Freq: Status: Active Protocol: Document 09/05/21 16:00 AW (Rec: 09/05/21 17:02 AW [id number]) Lymphedema Measurements Upper Extremity Circumference Measurements left UE MCP 19 cm Dorsum of Hand 19.3 cm Wrist 17.2 cm 10 cm From Wrist Crease 23.6 cm 20 cm From Wrist Crease 27.3 cm 30 cm From Wrist Crease 31 cm 40 cm From Wrist Crease 36.8 cm Elbow Joint 28.6 cm Axilla 40.2 cm PT-OP-Q Treatments Start: 07/02/21 12:26 Freq: Status: Active Protocol: Document 09/05/21 16:00 AW (Rec: 09/05/21 17:02 AW [id number]) Lymphedema Treatment Manual Lymphatic Drainage Location left UE Duration 25 Comments emphasis on AAA, CARLOS, and AAI pathways with patient instruction on self MLD Lymphedema Wrapping Other Pt requests no bandaging today as she did not tolerate light compression applied at last visit. Compression Garment Assessment Compression Garment Assessment Details Pt brings off the shelf sleeve today which is 20-30 mm Hg. Pt is able to don up to axilla but is too long. Pt was measured today at [facility] and hopes to have 15-20 mm Hg compression sleeve before she leaves for her trip Patient Education Lymphedema Pathology Education on superficial lymphatic system and rationale for skin stretch. Lymphedema Precautions Discussed skin care, vigilance regarding wounds. Sequential Lymphedema Exercises active use left UE encouraged. Other Answered questions pt had after watching [facility] PT youtube videos. Pt appears to have good understanding of pathology and treatment. PT-OP-T Assessment and Plan Start: 07/02/21 12:26 Freq: Status: Active Protocol: Document 09/05/21 16:00 AW (Rec: 09/05/21 17:02 AW [id number]) Physical Therapy Assessment Goals Two Impairment ROM Short Term Goal (STG) Pranay will raise her left arm overhead with 1/10 pain in her arm or less. STG Duration MET Speech Correction Consultant Goal (LTG) Pranay will improve her active left shoulder flexion to 170 degrees or more. LTG Duration 8 weeks One Impairment Swelling Short Term Goal (STG) Pranay will reduce her circumfrential measurement at her left elbow to within 2cm of the right. STG Duration 4 weeks Assessment Summary Assessment Pt did not tolerate compression bandaging after last session and had to remove it after four hours. However, she did measure after removing bandages and states measurements has reduced. Measurements today were reduced ~0.5 cm at each level. Pt has good buy in for benefits of compression but requested no bandaging today. She was measured today at [facility] for compression sleeve and hopes to have something to try before she leaves for her upcoming travels. Physical Therapy Plan Next Visit Focus/Plan Next Visit Plan Continue with edema management , assess compression alternatives, encourage use of LUE.
--- NOTE | 2021-09-11 17:16 | PT.OTRE ---
Current Diagnoses Medial epicondylitis, unspecified elbow (09/11/21) Pain in left arm (09/11/21) Other specified soft tissue disorders (09/11/21) Visit Care Team Role Provider Type Monisha Christopher MD Attending Provider Physician Family Provider Primary Care Provider Referring Provider Specialty: Family Practice Address: [address] [place] [address], [facility] [place], [address] Email: [email or web address] Physical Therapy Re-Evaluation PT-OP-A Visit Information Start: 07/02/21 12:26 Freq: Status: Active Protocol: Document 09/11/21 08:16 SAK (Rec: 09/11/21 08:27 SAK [id number]) Out-Patient Physical Therapy Visit Information Visit Information Visit Type Treatment Note Visit Start Time 08:16 Visit Stop Time 09:00 Total Visit Minutes 44 Visit Number 8 Number of BREEDING MANAGER Visits 0 PT-OP-B Current Condition Start: 07/02/21 12:26 Freq: Status: Active Protocol: Document 07/08/21 09:49 AMB (Rec: 07/08/21 10:51 AMB [id number]) Current Condition History of Current Condition Onset Date April 2021 Current Complaints L arm History of Current Condition Sore elbow was so sore I couldn't lift my purse, after a bug bite? Has noticed swelling and increased veins which she notes are progressing. Notices throbbing with raising the arm over the head, as well as heat from the shower. Throbbing present down into hand, with the worst over lateral epicondyle denies numbness and tingling. Pain worsens with gardening, but overall seems to be worst with over head movements. Prior Treatments and Tests Ultrasound to check for blood clots. Lab work, chest x-ray all normal per pt report. Personal Factors Other Personal Factors That May Effect Pacemaker, on eliquis Therapy/Recovery PT-OP-C Subjective Start: 07/02/21 12:26 Freq: Status: Active Protocol: Document 09/11/21 08:16 SAK (Rec: 09/11/21 08:27 SAK [id number]) OP-PT Subjective Patient Comments Patient Comments Reports has always swollen up a lot after bug bites her whole life. Was sent for blood test on ThursdayDt. Christopher recommended she return to club licensee. Can't take anti -inflammatory medication due to pacemaker. Uses tool for self-massage for lymphedema because she finds she doesn't press too hard as she does with her hand. Should be getting compression sleeve this week prior to going on trip to [facility] next week . Requests no bandaging. PT-OP-J Posture/Palpation/Skin Start: 07/02/21 12:26 Freq: Status: Active Protocol: Document 07/08/21 09:45 AMB (Rec: 07/08/21 12:07 AMB [id number]) Skin Assessment Circumference Measurement 2 Location elbow (R) Measurement (Centimeters) 25 1 Location elbow (L) Measurement (Centimeters) 29 PT-OP-K Range of Motion Start: 07/02/21 12:26 Freq: Status: Active Protocol: Document 07/08/21 09:45 AMB (Rec: 07/08/21 12:07 AMB [id number]) Shoulder Goniometric Range of Motion Shoulder Measured in Degrees Left Active Testing Position Sitting Comments approx 160 on L, full on R PT-OP-M Strength Start: 07/02/21 12:26 Freq: Status: Active Protocol: Document 07/08/21 09:45 AMB (Rec: 07/08/21 12:41 AMB [id number]) Elbow/Forearm Strength Elbow and Forearm Manual Muscle Testing Right Flexion (C6) 5 Normal Extension (C7) 5 Normal Left Flexion (C6) 4+ Good+ Extension (C7) 4+ Good+ Wrist Strength Wrist Manual Muscle Testing Right Flexion (C7) 5 Normal Extension (C6) 5 Normal Left Flexion (C7) 5 Normal Extension (C6) 4 Good Comments pain with wrist extension PT-OP-N Lymphedema Start: 08/28/21 16:50 Freq: Status: Active Protocol: Document 09/05/21 16:00 AW (Rec: 09/05/21 17:02 AW [id number]) Lymphedema Measurements Upper Extremity Circumference Measurements left UE MCP 19 cm Dorsum of Hand 19.3 cm Wrist 17.2 cm 10 cm From Wrist Crease 23.6 cm 20 cm From Wrist Crease 27.3 cm 30 cm From Wrist Crease 31 cm 40 cm From Wrist Crease 36.8 cm Elbow Joint 28.6 cm Axilla 40.2 cm PT-OP-Q Treatments Start: 07/02/21 12:26 Freq: Status: Active Protocol: Document 09/05/21 16:00 AW (Rec: 09/05/21 17:02 AW [id number]) Lymphedema Treatment Manual Lymphatic Drainage Location left UE Duration 25 Comments emphasis on AAA, CARLOS, and AAI pathways with patient instruction on self MLD Lymphedema Wrapping Other Pt requests no bandaging today as she did not tolerate light compression applied at last visit. Compression Garment Assessment Compression Garment Assessment Details Pt brings off the shelf sleeve today which is 20-30 mm Hg. Pt is able to don up to axilla but is too long. Pt was measured today at [facility] and hopes to have 15-20 mm Hg compression sleeve before she leaves for her trip Patient Education Lymphedema Pathology Education on superficial lymphatic system and rationale for skin stretch. Lymphedema Precautions Discussed skin care, vigilance regarding wounds. Sequential Lymphedema Exercises active use left UE encouraged. Other Answered questions pt had after watching [facility] PT youtube videos. Pt appears to have good understanding of pathology and treatment. PT-OP-T Assessment and Plan Start: 07/02/21 12:26 Freq: Status: Active Protocol: Document 09/11/21 08:16 SAK (Rec: 09/11/21 08:27 SAK [id number]) Physical Therapy Assessment Goals Two Impairment ROM Short Term Goal (STG) Pranay will raise her left arm overhead with 1/10 pain in her arm or less. STG Duration MET Web Portal Developer Goal (LTG) Pranay will improve her active left shoulder flexion to 170 degrees or more. 09/11/21: goal progress LTG Duration 10/16/21 One Impairment Swelling Short Term Goal (STG) Pranay will reduce her circumfrential measurement at her left elbow to within 2cm of the right. STG Duration 10/16/21 Penitentiary Goal (LTG) Pranay will obtain appropriate compresssion sleeve and be able to tolerate wearing at least 10 hours per day. She will also demonstrate independence in all aspects of lymphedema self-management including skin care, self massage, use of compression, and lymphedema exercises. LTG Duration 10/16/21 Assessment Summary Assessment circumferential measurements stable, noted decrease in swelling after bandaging but unable to tolerate. Is hopeful that compression sleeve will be helpful. Has other folow-up appointments including further imaging for adrenal nodule as well as to see club licensee. She is demonstrating improving understanding of self-massage and skin care. Need further instruction in lymphedema exercises as well as appropriate use of compression sleeve once obtains. Will benefit from further physical therapy to help her fully achieve the above physical therapy goals. Physical Therapy Plan Frequency and Duration Frequency of Treatment 1x/Week Duration of Treatment 5 weeks Plan of Care Start Date 09/11/21 Plan of Care End Date 10/16/21 Next Visit Focus/Plan Next Note Type Treatment Note Next Visit Plan Continue lymphedema management , patient education. ASsess fit of compression sleeve and educate in donning, doffing, proper use and care of sleeve.
--- NOTE | 2021-09-11 17:16 | PT.OPPOC ---
Physical, Occupational & Speech Therapy At [facility] Current Diagnoses Medial epicondylitis, unspecified elbow (09/11/21) Pain in left arm (09/11/21) Other specified soft tissue disorders (09/11/21) Visit Care Team Role Provider Type Monisha Christopher MD Attending Provider Physician Family Provider Primary Care Provider Referring Provider Specialty: Family Practice Address: [address] [place] [address], [facility] [place], [facility] Email: Plan Of Care PT-OP-T Assessment and Plan Start: 07/02/21 12:26 Freq: Status: Active Protocol: Document 09/11/21 08:16 SAK (Rec: 09/11/21 08:27 SAK [id number]) Physical Therapy Assessment Goals Two Impairment ROM Short Term Goal (STG) Pranay will raise her left arm overhead with 1/10 pain in her arm or less. STG Duration MET Business Machine Operator Goal (LTG) Pranay will improve her active left shoulder flexion to 170 degrees or more. 09/11/21: goal progress LTG Duration 10/16/21 One Impairment Swelling Short Term Goal (STG) Pranay will reduce her circumfrential measurement at her left elbow to within 2cm of the right. STG Duration 10/16/21 Correction Goal (LTG) Pranay will obtain appropriate compresssion sleeve and be able to tolerate wearing at least 10 hours per day. She will also demonstrate independence in all aspects of lymphedema self-management including skin care, self massage, use of compression, and lymphedema exercises. LTG Duration 10/16/21 Assessment Summary Assessment circumferential measurements stable, noted decrease in swelling after bandaging but unable to tolerate. Is hopeful that compression sleeve will be helpful. Has other folow-up appointments including further imaging for adrenal nodule as well as to see nutrition internship. She is demonstrating improving understanding of self-massage and skin care. Need further instruction in lymphedema exercises as well as appropriate use of compression sleeve once obtains. Will benefit from further physical therapy to help her fully achieve the above physical therapy goals. Physical Therapy Plan Frequency and Duration Frequency of Treatment 1x/Week Duration of Treatment 5 weeks Plan of Care Start Date 09/11/21 Plan of Care End Date 10/16/21 Next Visit Focus/Plan Next Note Type Treatment Note Next Visit Plan Continue lymphedema management , patient education. ASsess fit of compression sleeve and educate in donning, doffing, proper use and care of sleeve. Plan of Care Dates Plan of Care Start Date 09/11/21 Plan of Care End Date 10/16/21 Electronically Signed by: Shannon Garvin, PT 09/11/21 [id number] If you are in agreement with this Plan of Care, please return a signed and dated copy. I have reviewed this Plan of Care and certify that the skilled therapy services above are required to meet the patient?s needs. Physician Signature Date Printed Name and Credentials Clinical Instructor Signature Printed Name and Credentials
--- NOTE | 2021-10-08 08:20 | PT-OP ANOTE ---
Pt called day before to cancel due to COVID (+) and still ill. Next scheduled appointment is October 16.
--- NOTE | 2021-10-16 17:14 | PT.OTN ---
Current Diagnoses Medial epicondylitis, unspecified elbow (10/16/21) Pain in left arm (10/16/21) Other specified soft tissue disorders (10/16/21) Physical Therapy Treatment Note PT-OP-A Visit Information Start: 07/02/21 12:26 Freq: Status: Active Protocol: Document 10/16/21 13:29 AW (Rec: 10/16/21 14:35 AW [id number]) Out-Patient Physical Therapy Visit Information Visit Information Visit Type Treatment Note Visit Start Time 13:45 Visit Stop Time 14:30 Total Visit Minutes 45 Visit Number 9 Number of MANAGER VIDEO GAMES Visits 0 PT-OP-B Current Condition Start: 07/02/21 12:26 Freq: Status: Active Protocol: Document 07/08/21 09:49 AMB (Rec: 07/08/21 10:51 AMB [id number]) Current Condition History of Current Condition Onset Date April 2021 Current Complaints L arm History of Current Condition Sore elbow was so sore I couldn't lift my purse, after a bug bite? Has noticed swelling and increased veins which she notes are progressing. Notices throbbing with raising the arm over the head, as well as heat from the shower. Throbbing present down into hand, with the worst over lateral epicondyle denies numbness and tingling. Pain worsens with gardening, but overall seems to be worst with over head movements. Prior Treatments and Tests Ultrasound to check for blood clots. Lab work, chest x-ray all normal per pt report. Personal Factors Other Personal Factors That May Effect Pacemaker, on eliquis Therapy/Recovery PT-OP-C Subjective Start: 07/02/21 12:26 Freq: Status: Active Protocol: Document 10/16/21 13:29 AW (Rec: 10/16/21 14:35 AW [id number]) OP-PT Subjective Patient Comments Patient Comments Pt got her new compression sleeve before her trip. Tried to wear and lasted about six hours while driving. Arm was excruciatingly painful. Wore another time and pain was very bad. Active movement of the arms and hands relieved pain a little bit but pt could not tolerate the sleeve after that . Has been doing self MLD in the shower daily. PT-OP-J Posture/Palpation/Skin Start: 07/02/21 12:26 Freq: Status: Active Protocol: Document 07/08/21 09:45 AMB (Rec: 07/08/21 12:07 AMB [id number]) Skin Assessment Circumference Measurement 2 Location elbow (R) Measurement (Centimeters) 25 1 Location elbow (L) Measurement (Centimeters) 29 PT-OP-K Range of Motion Start: 07/02/21 12:26 Freq: Status: Active Protocol: Document 07/08/21 09:45 AMB (Rec: 07/08/21 12:07 AMB [id number]) Shoulder Goniometric Range of Motion Shoulder Left Active Testing Position Sitting Comments approx 160 on L, full on R PT-OP-M Strength Start: 07/02/21 12:26 Freq: Status: Active Protocol: Document 07/08/21 09:45 AMB (Rec: 07/08/21 12:41 AMB [id number]) Elbow/Forearm Strength Elbow and Forearm Manual Muscle Testing Right Flexion (C6) 5 Normal Extension (C7) 5 Normal Left Flexion (C6) 4+ Good+ Extension (C7) 4+ Good+ Wrist Strength Wrist Manual Muscle Testing Right Flexion (C7) 5 Normal Extension (C6) 5 Normal Left Flexion (C7) 5 Normal Extension (C6) 4 Good Comments pain with wrist extension PT-OP-N Lymphedema Start: 08/28/21 16:50 Freq: Status: Active Protocol: Document 10/16/21 13:29 AW (Rec: 10/16/21 17:09 AW [id number]) Lymphedema Measurements Upper Extremity Circumference Measurements left UE MCP 19.9 cm Dorsum of Hand 19.1 cm Wrist 16.9 cm - forearm: 27.7 elbow 28.7 upper arm 36.7 PT-OP-Q Treatments Start: 07/02/21 12:26 Freq: Status: Active Protocol: Document 10/16/21 13:29 AW (Rec: 10/16/21 14:35 AW [id number]) Therapeutic Exercises Sidelying Exercises 1 Sidelying Exercise Name open book Reps/Minutes 2x15 Lymphedema Treatment Manual Lymphatic Drainage Location left UE Duration 25 Comments emphasis on AAA, CARLOS, and AAI pathways with patient instruction on self MLD Lymphedema Wrapping Other Pt requests no bandaging today as she has not been tolerating compression at all. Compression Garment Assessment Compression Garment Assessment Details Counseled pt to try compression sleeve again but only for a few hours at a time when she knows she will be active and be able to keep her arm moving. PT-OP-T Assessment and Plan Start: 07/02/21 12:26 Freq: Status: Active Protocol: Document 10/16/21 13:29 AW (Rec: 10/16/21 14:35 AW [id number]) Physical Therapy Assessment Goals Two Impairment ROM Short Term Goal (STG) Pranay will raise her left arm overhead with 1/10 pain in her arm or less. STG Duration MET Correction Goal (LTG) Pranay will improve her active left shoulder flexion to 170 degrees or more. 09/11/21: goal progress 10/16/21: 160 today LTG Duration 12/17/21 One Impairment Swelling Short Term Goal (STG) Pranay will reduce her circumfrential measurement at her left elbow to within 2cm of the right. STG Duration 10/16/21 Bowling Floor Manager Goal (LTG) Pranay will obtain appropriate compresssion sleeve and be able to tolerate wearing at least 10 hours per day. She will also demonstrate independence in all aspects of lymphedema self-management including skin care, self massage, use of compression, and lymphedema exercises. LTG Duration 12/17/21 Assessment Summary Assessment Circumferential measurements overall decreased today compared with assessment on 09/11/21. Pt has not been able to tolerate compression but has only tried a few times and was wearing the sleeve while sitting in a car. Recommended pt try wearing sleeve for 2-3 hours at a time while doing activity to assess tolerance. Pt will continue with daily self-MLD. Plan to check in with pt in 4-6 weeks. Plan of care was extended today to accommodate. Likely discharge after next visit. Physical Therapy Plan Frequency and Duration Frequency of Treatment Every Other Week Duration of Treatment 2 months Plan of Care Start Date 10/16/21 Plan of Care End Date 12/17/21 Next Visit Focus/Plan Next Note Type Treatment Note Next Visit Plan Continue lymphedema management , patient education. ASsess fit of compression sleeve and educate in donning, doffing, proper use and care of sleeve.
--- NOTE | 2021-10-16 17:14 | PT.OPPOC ---
Physical, Occupational & Speech Therapy At [facility] Current Diagnoses Medial epicondylitis, unspecified elbow (10/16/21) Pain in left arm (10/16/21) Other specified soft tissue disorders (10/16/21) Visit Care Team Role Provider Type Monisha Christopher MD Attending Provider Physician Family Provider Primary Care Provider Referring Provider Specialty: [facility] Practice Address: [address] [place] [address], [facility] [place], [facility] Email: [email or web address] Plan Of Care PT-OP-T Assessment and Plan Start: 07/02/21 12:26 Freq: Status: Active Protocol: Document 10/16/21 13:29 AW (Rec: 10/16/21 14:35 AW [id number]) Physical Therapy Assessment Goals Two Impairment ROM Short Term Goal (STG) Pranay will raise her left arm overhead with 1/10 pain in her arm or less. STG Duration MET Dosier Operator Goal (LTG) Pranay will improve her active left shoulder flexion to 170 degrees or more. 09/11/21: goal progress 10/16/21: 160 today LTG Duration 12/17/21 One Impairment Swelling Short Term Goal (STG) Pranay will reduce her circumfrential measurement at her left elbow to within 2cm of the right. STG Duration 10/16/21 Fdc Goal (LTG) Pranay will obtain appropriate compresssion sleeve and be able to tolerate wearing at least 10 hours per day. She will also demonstrate independence in all aspects of lymphedema self-management including skin care, self massage, use of compression, and lymphedema exercises. LTG Duration 12/17/21 Assessment Summary Assessment Circumferential measurements overall decreased today compared with assessment on 09/11/21. Pt has not been able to tolerate compression but has only tried a few times and was wearing the sleeve while sitting in a car. Recommended pt try wearing sleeve for 2-3 hours at a time while doing activity to assess tolerance. Pt will continue with daily self-MLD. Plan to check in with pt in 4-6 weeks. Plan of care was extended today to accommodate. Likely discharge after next visit. Physical Therapy Plan Frequency and Duration Frequency of Treatment Every Other Week Duration of Treatment 2 months Plan of Care Start Date 10/16/21 Plan of Care End Date 12/17/21 Next Visit Focus/Plan Next Note Type Treatment Note Next Visit Plan Continue lymphedema management , patient education. ASsess fit of compression sleeve and educate in donning, doffing, proper use and care of sleeve. Plan of Care Dates Plan of Care Start Date 10/16/21 Plan of Care End Date 12/17/21 Electronically Signed by: Norma Wolfe, PT 10/16/21 1089 If you are in agreement with this Plan of Care, please return a signed and dated copy. I have reviewed this Plan of Care and certify that the skilled therapy services above are required to meet the patient?s needs. Physician Signature Date Printed Name and Credentials Clinical Instructor Signature Printed Name and Credentials
--- NOTE | 2021-11-27 09:17 | PT.OPDS ---
Current Diagnoses Medial epicondylitis, unspecified elbow (10/16/21) Pain in left arm (10/16/21) Other specified soft tissue disorders (10/16/21) Visit Care Team Role Provider Type Monisha Christopher MD Attending Provider Physician Family Provider Primary Care Provider Referring Provider Specialty: Family Practice Address: [address] [place] [address], [place], [address] Email: [email or web address] Visit Number Visit Number 9 Discharge Summary PT-OP-B Current Condition Start: 07/02/21 12:26 Freq: Status: Active Protocol: Document 07/08/21 09:49 AMB (Rec: 07/08/21 10:51 AMB [id number]) Current Condition History of Current Condition Onset Date April 2021 Current Complaints L arm History of Current Condition Sore elbow was so sore I couldn't lift my purse, after a bug bite? Has noticed swelling and increased veins which she notes are progressing. Notices throbbing with raising the arm over the head, as well as heat from the shower. Throbbing present down into hand, with the worst over lateral epicondyle denies numbness and tingling. Pain worsens with gardening, but overall seems to be worst with over head movements. Prior Treatments and Tests Ultrasound to check for blood clots. Lab work, chest x-ray all normal per pt report. Personal Factors Other Personal Factors That May Effect Pacemaker, on eliquis Therapy/Recovery PT-OP-C Subjective Start: 07/02/21 12:26 Freq: Status: Active Protocol: Document 10/16/21 13:29 AW (Rec: 10/16/21 14:35 AW [id number]) OP-PT Subjective Patient Comments Patient Comments Pt got her new compression sleeve before her trip. Tried to wear and lasted about six hours while driving. Arm was excruciatingly painful. Wore another time and pain was very bad. Active movement of the arms and hands relieved pain a little bit but pt could not tolerate the sleeve after that . Has been doing self MLD in the shower daily. PT-OP-J Posture/Palpation/Skin Start: 07/02/21 12:26 Freq: Status: Active Protocol: Document 07/08/21 09:45 AMB (Rec: 04/04/22 12:07 AMB [id number]) Skin Assessment Circumference Measurement 2 Location elbow (R) Measurement (Centimeters) 25 1 Location elbow (L) Measurement (Centimeters) 29 PT-OP-K Range of Motion Start: 07/02/21 12:26 Freq: Status: Active Protocol: Document 07/08/21 09:45 AMB (Rec: 07/08/21 12:07 AMB [id number]) Shoulder Goniometric Range of Motion Shoulder Left Active Testing Position Sitting Comments approx 160 on L, full on R PT-OP-M Strength Start: 07/02/21 12:26 Freq: Status: Active Protocol: Document 07/08/21 09:45 AMB (Rec: 07/08/21 12:41 AMB [id number]) Elbow/Forearm Strength Elbow and Forearm Manual Muscle Testing Right Flexion (C6) 5 Normal Extension (C7) 5 Normal Left Flexion (C6) 4+ Good+ Extension (C7) 4+ Good+ Wrist Strength Wrist Manual Muscle Testing Right Flexion (C7) 5 Normal Extension (C6) 5 Normal Left Flexion (C7) 5 Normal Extension (C6) 4 Good Comments pain with wrist extension PT-OP-N Lymphedema Start: 08/28/21 16:50 Freq: Status: Active Protocol: Document 10/16/21 13:29 AW (Rec: 10/16/21 17:09 AW [id number]) Lymphedema Measurements Upper Extremity Circumference Measurements left UE MCP 19.9 cm Dorsum of Hand 19.1 cm Wrist 16.9 cm - forearm: 27.7 elbow 28.7 upper arm 36.7 PT-OP-T Assessment and Plan Start: 07/02/21 12:26 Freq: Status: Active Protocol: Document 11/27/21 09:16 AW (Rec: 11/27/21 09:17 AW [id number]) Physical Therapy Plan Discharge Physical Therapy Discharge Reasons Patient Request Discharge Comments Pranay called to cancel her last scheduled visit, stating she is feeling better and ready for discharge. Pt understands she will need a new referral if she wishes to return to PT.
== END 2021-11-28 10:45 ==
LOC: PHYS 13:45
PROVIDERS: Family Provider Family Medicine; PCP Family Medicine; Referring Provider Family Medicine; Visit Provider Family Medicine
DX: M77.00 Medial epicondylitis, unspecified elbow (principal); M79.89 Other specified soft tissue disorders; M79.602 Pain in left arm
CPT/HCPCS: 97110; 97140; 97162; 97535

== ENCOUNTER → 2021-10-21 11:01 | Outpatient (CLI) | payer OTHER, SELFPAY ==
[2021-10-21 12:30] LABS: BUN Creatinine Ratio 15.6 (6-22); Blood Urea Nitrogen 14 mg/dL (7-17); Calcium 8.9 mg/dL (8.4-10.2); Carbon Dioxide 33 mmol/L (22-32); Chloride 102 mmol/L (98-107); Estimated Glomerular Filt Rate > 60 mL/min (>60); Glucose 104 mg/dL (80-110); HEMOLYSIS < 15 (0-50); Potassium 4.1 mmol/L (3.4-5.1); Sodium 137 mmol/L (137-145)
--- NOTE | 2021-10-21 12:44 | DI.CT.S_ITS ---
PROCEDURE: CT ABDOMEN ADRENAL PROTOCOL INDICATIONS: ADRENAL GLAND DISORDERS TECHNIQUE: Noncontrast 3 mm thick sections acquired from the diaphragms to the iliac crests. After the administration of intravenous contrast, 3 mm thick venous-phase and 15-minute delayed images acquired from the diaphragms to the iliac crests. For radiation dose reduction, the following was used: automated exposure control, adjustment of mA and/or kV according to patient size. COMPARISON: [facility], CT, CT CHEST W [facility], 08/22/2021, 14:25. FINDINGS: Image quality: Excellent. Lung bases: Lung bases are clear. Heart size is normal. Dual lead pacemaker leads in place. Very small hiatal hernia. Adrenal glands: 1.2 x 0.9 cm nodule arising from the medial limb of the right adrenal gland has precontrast Hounsfield units of 14 postcontrast Hounsfield units of 69, and delayed phase Hounsfield units of 25. This corresponds to an absolute washout of 80% and relative washout of 64%, both highly suggestive of benign adrenal adenomas. No other adrenal masses. Solid organs: Liver is normal in size and enhancement. Gallbladder has a normal wall thickness . Biliary system is non dilated. Pancreas enhances normally. Spleen is normal in size and enhancement. Kidneys are normal in size and enhancement. No hydronephrosis or nephrolithiasis. Peritoneum and bowel: Unenhanced bowel loops are normal in caliber and wall thickness. No free fluid or air. Nodes and vessels: No retroperitoneal or mesenteric adenopathy by size criteria. Aorta and inferior vena cava are normal in size. Miscellaneous: Tiny fat containing umbilical hernia. Bones: Degenerative endplate spurring in the thoracic spine and multilevel degenerative disc height loss and mild posterior endplate spurring in the lumbar spine.. IMPRESSION: 1. 1.2 cm right adrenal mass has enhancement and washout characteristics of a benign adrenal adenoma. Dictated by: Jocelyn Collins M.D. on 10/21/2021 at 16:38 Approved by: Jcoelyn Collins M.D. on 10/21/2021 at 16:57
== END ==
PROVIDERS: Family Provider Family Medicine; PCP Family Medicine; Referring Provider Family Medicine; Visit Provider Family Medicine
DX: E27.8 Other specified disorders of adrenal gland (principal); L03.114 Cellulitis of left upper limb; M79.89 Other specified soft tissue disorders
CPT/HCPCS: 36415; 74170; 80048

== ENCOUNTER → 2022-03-04 15:22 | Outpatient (CLI) | payer OTHER, SELFPAY | PROVIDERS: Family Provider Family Medicine; PCP Family Medicine; Referring Provider Family Medicine; Visit Provider Family Medicine | DX: Z78.0 Asymptomatic menopausal state (principal); Z13.820 Encounter for screening for osteoporosis; Z92.23 Personal history of estrogen therapy; Z90.710 Acquired absence of both cervix and uterus | CPT/HCPCS: 77080 ==

== ENCOUNTER → 2022-07-21 12:57 | Outpatient (CLI) | payer MEDICARE, SELFPAY ==
--- NOTE | 2022-07-21 | DI.MG.S_ITS ---
BILATERAL DIGITAL SCREENING MAMMOGRAM 3D/2D WITH CAD: 07/21/2022 CLINICAL: Routine screening. Comparison is made to exams dated: 07/03/2021 mammogram, 06/29/2020 mammogram, 01/25/2020 mammogram, 06/14/2019 mammogram, 05/28/2018 mammogram, and 05/15/2017 mammogram - [facility]. There are scattered areas of fibroglandular density in both breasts (category b / 25%-50% glandular tissue). Current study was also evaluated with a Computer Aided Detection (CAD) system. There is a biopsy clip in the right breast. No significant masses, calcifications, or other findings are seen in either breast. There has been no significant interval change. IMPRESSION: NEGATIVE There is no mammographic evidence of malignancy. A 1 year screening mammogram is recommended. Based on the Tyrer Cuzick model (a risk assessment model) the patient's lifetime risk is 3.7% and her 10 year risk is 2.5%. According to the ACR, ACS, and NCCN guidelines, an annual breast MRI exam along with mammogram is recommended if the patient's lifetime risk is 20% or greater. This exam was interpreted at Station ID: [id number]. NOTE: For mammograms, a report in lay terms will be sent to the patient. Approximately 15% of breast malignancies will not be visualized mammographically. In the management of a palpable breast mass, a negative mammogram must not discourage biopsy of a clinically suspicious lesion. Electronically Signed By: Robbin alas/glen:07/21/2022 15:03:18 letter sent: Normal Exam ACR BI-RADS Category 1: Negative [id number]
== END ==
PROVIDERS: Family Provider Family Medicine; PCP Family Medicine; Referring Provider Family Medicine; Visit Provider Family Medicine
DX: Z12.31 Encounter for screening mammogram for malignant neoplasm of breast (principal)
CPT/HCPCS: 77063; 77067

== ENCOUNTER → 2022-09-05 15:06 | Outpatient (CLI) | payer MEDICARE, SELFPAY ==
--- NOTE | 2022-09-05 | DI.RAD.S_ITS ---
PROCEDURE: XR FOOT RT MIN 3V INDICATIONS: PAIN IN FOOT TECHNIQUE: 3 views of the foot were acquired. COMPARISON: None. FINDINGS: Bones: No fractures or dislocations. No suspicious bony lesions. Degenerative changes of the interphalangeal joints and the 1st tarsometatarsal joint. Soft tissues: No tibiotalar joint effusion. Achilles tendon appears normal. IMPRESSION: Degenerative changes of the interphalangeal joints in the 1st tarsometatarsal joint. No acute abnormality. Dictated by: Liban Arnett M.D. on 09/05/2022 at 15:55 Approved by: Liban Arnett M.D. on 09/05/2022 at 15:57
== END ==
PROVIDERS: Family Provider Family Medicine; PCP Family Medicine; Referring Provider Family Medicine; Visit Provider Family Medicine
DX: M79.671 Pain in right foot (principal); G57.51 Tarsal tunnel syndrome, right lower limb; M21.41 Flat foot [pes planus] (acquired), right foot
CPT/HCPCS: 73630

== ENCOUNTER 2023-01-26 12:15 | Outpatient (RCR) | payer MEDICARE, SELFPAY ==
--- NOTE | 2022-10-21 17:10 | PT.OPPOC ---
Physical, Occupational & Speech Therapy At [facility] Current Diagnoses Tarsal tunnel syndrome, right lower limb (10/21/22) Flat foot [pes planus] (acquired), right foot (10/21/22) Pain in right knee (10/21/22) Pain in right foot (10/21/22) Pain in left foot (10/21/22) Difficulty in walking, not elsewhere classified (10/21/22) Unsteadiness on feet (10/21/22) Visit Care Team Role Provider Type Monisha Christopher MD Attending Provider Physician Family Provider Primary Care Provider Referring Provider Specialty: Family Practice Address: [address] [place] [address], [facility] [place], [facility] Email: [email or web address] Plan Of Care PT-OP-T Assessment and Plan Start: 10/16/22 08:58 Freq: Status: Active Protocol: Document 10/21/22 16:54 [facility] (Rec: 10/21/22 17:57 [facility] [id number]) Physical Therapy Assessment Rehab Potential Rehabilitation Potential Good Evaluation Complexity Number of Personal Factors/Comorbidities 3 or More Number of Body Systems Impaired 4 or More Clinical Presentation at Evaluation Evolving Impairments Impairments Activity Tolerance,Balance, Functional Activities, Functional Mobility,Gait,Pain, Posture,ROM,Soft Tissue Mobility,Strength Goals ROM Short Term Goal (STG) Pt will be able to get DF to neutral in both knee ext and flex to improve gait and dec tension on plantar fascia and achilles. STG Duration 12/05 Edge Drummer Goal (LTG) Pt will be able to get DF to at least 5 deg in knee ext and 8 in flex to improve gait and dec tension on plantar fascia and achilles. LTG Duration 01/13 balance Short Term Goal (STG) Pt will do SLS for 10 sec on RLE to show improved balance STG Duration 12/05 [facility] Goal (LTG) Pt will be able to do SLS for at least 15 sec w/UEs at side and no lat lean/shear LTG Duration 01/13/23 pain Edge Drummer Goal (LTG) Pt will report no more than 2/ 10 pain in B knees or B foot for a week time period. LTG Duration 01/13/23 movement Short Term Goal (STG) Pt will be able to self manage pain to give relief when gets pain during the day. STG Duration 12/05/22 Edge Drummer Goal (LTG) Pt will be able go for walks w /o pain and w/o inc pain later after the walks when transitioning from sitting. LTG Duration 01/13/23 Assessment Summary Assessment Pt presents w/multiple areas of pain with major complaint of R heel pain that often radiates to plantar foot along w/recent inc R knee pain. She has s/s of plantar fascitis along w/lack of knee ext and knee pain w/moblity that has imrpoved some over the past couple weeks but is likely complicating her R foot pain along w/her hx of back pain. She has impaired gait mechancis, weakness of LE, dec ROM, and tenderness to plantar fascia along w/pain afters sitting extended especially after walking. She would benefit from skilled PT to work on B foot pain (as L has started to occ be painful, R knee pain, improve gait mechanics, LE strength and improve R ankle and knee ROM to return pt to her typical ADLs w/o inc pain. Physical Therapy Plan Frequency and Duration Frequency of Treatment 2x/Week Duration of treatment (weeks) 12 Plan of Care Start Date 10/21/22 Plan of Care End Date 01/13/23 Therapeutic Interventions Therapeutic Interventions Balance Training,Gait Training ,Home Exercise Program,Joint Mobilizations,Manual Therapy, Neuromuscular Re-education, Orthotic/Prosthetic Management ,Patient/Caregiver Education, Self-Care/Home Management,Soft Tissue Mobilization,Taping, Therapeutic Activities, Therapeutic Exercises Modalities Cold Pack/Ice Massage,Hot Packs,Infrared Therapy, Iontophoresis,Ultrasound Next Visit Focus/Plan Next Note Type Treatment Note Next Visit Plan HEP:short foot exercise, SLS balance, calf stretches, plantar fascia stretch, self ankle DF mob, manual to calf, plantar fascia , fat pad, calcaneal distraction & gapping Plan of Care Dates Plan of Care Start Date 10/21/22 Plan of Care End Date 01/13/23 Electronically Signed by: Radha Daniels, PT 10/23/22 9317 If you are in agreement with this Plan of Care, please return a signed and dated copy. I have reviewed this Plan of Care and certify that the skilled therapy services above are required to meet the patient?s needs. Physician Signature Date Printed Name and Credentials Clinical Instructor Signature Printed Name and Credentials
--- NOTE | 2022-10-21 17:10 | PT.OIE ---
Current Diagnoses Tarsal tunnel syndrome, right lower limb (10/21/22) Flat foot [pes planus] (acquired), right foot (10/21/22) Pain in right knee (10/21/22) Pain in right foot (10/21/22) Pain in left foot (10/21/22) Difficulty in walking, not elsewhere classified (10/21/22) Unsteadiness on feet (10/21/22) Visit Care Team Role Provider Type Monisha Christopher MD Attending Provider Physician Family Provider Primary Care Provider Referring Provider Specialty: Family Practice Address: [address] [place] [address], [id number] Email: [email or web address] Initial Evaluation PT-OP-A Visit Information Start: 10/16/22 08:58 Freq: Status: Active Protocol: Document 10/21/22 16:54 [facility] (Rec: 10/21/22 17:57 [facility] [id number]) Out-Patient Physical Therapy Visit Information Visit Information Visit Type Initial Evaluation Visit Note 04/15 Visit Start Time 16:51 Visit Stop Time 17:46 Total Visit Minutes 55 Visit Number 1 Number of WINDOW SHADE INSTALLER Visits 0 PT-OP-B Current Condition Start: 10/16/22 08:58 Freq: Status: Active Protocol: Document 10/21/22 16:54 [facility] (Rec: 10/21/22 17:57 [facility] [id number]) Current Condition History of Current Condition Onset Date worse this spring (hx of some discomfort after long day) Current Complaints R heel pain & plantar foot pain & knee pain History of Current Condition Pt reports in she started to get heel pain which progressed to burning med then lat. She started walking in May w/a friend then friend went on elena then when she came back and they started again and thats when the pain started. It hurts a littl ein the Am and once getting moving , it gets better then in the afternoon then she starts gettng the bruning sensation around the heel. She walks aroudn 4-530. She rests and then when she goes to get up, she has trouble getting up d/t pain and then after dinner, and she gets up to go to bed and it hurts to shift wt into foot and hard to put wt into foot. She has B knee pain. Her driveway is a bit of an incline so if she walks and then walks up/down the driveway then more sore the next am. THe L is starting to ache occ. She saw on September 03 and then her R knee was really swollen and it finally is getting better recently. She tried ice and heat. Heat didn't seem to help a lot. Pt reports [employer]AGGER told her she has R knee arthritis. She wants to go as long as she can to avoid knee replacement. She has a pacemaker d/t low HR and Afib. She thinks she has a lot of inflamation and notes her L arm swelled up. She went through tons of tests and PT thought lymphadema and she tried sleeves but they would irridate her skin so bad. Pt reports she has had stomach issues for a long time. She was on prilosec and got off that. She manages this with what she eats by inc salads etc. Describes stomach as touchy. Pt reports she has back pain when she wakes in the AM and she has trouble rolling at first but once she gets moving she is okay. Typically rare pain during the day except when really hard on it when doing gardening etc but it goes away quickly. Pt reports she initially thought it was d/t being overweight. She has a big varicose vein in post calf. She was reading about tarsal tunnel and saw taht varicose veins can be related. walking does seem to help R knee. Pt has some family members w/fibromyalgia and Lupus. Treatment Goals Patient/Caregiver Goals Be able to walk w/o pain, know what to do to help pain PT-OP-C Subjective Start: 10/16/22 08:58 Freq: Status: Active Protocol: Document 10/21/22 16:54 [facility] (Rec: 10/21/22 17:57 [facility] [id number]) Patient Questionnaires Foot & Ankle Ability Measure- ADL and Sports FAAM-ADL Score 66/84 FAAM-Sport Score 21/28 Lower Extremity Functional Scale LEFS Score 52/80 OP-PT Pain Assessment Location R foot Pain Location Details R med lat and post heel Description Aching Frequency Daily Radiating Location to bottom of foot Pain Aggravating Factors Walking Other Pain Alleviating Factors movement PT-OP-D Balance Start: 10/16/22 08:58 Freq: Status: Active Protocol: Document 10/21/22 16:54 [facility] (Rec: 10/21/22 17:57 [facility] [id number]) Balance Tests Single Limb Standing Single Limb- Right 8 sec w/UE for balance and lat lean Single Limb- Left 12 sec w/UE for balance and lat lean PT-OP-F Manual Assessment Start: 10/16/22 08:58 Freq: Status: Active Protocol: Document 10/21/22 16:54 [facility] (Rec: 10/21/22 17:57 [facility] [id number]) Manual Assessments Soft Tissue Assessment Soft Tissue Mobility Assessment tender platnar fascia and inf heel Joint Mobility Assessment Joint Mobility Assessment B turned out, WB more on med heel, swelling more around malleoli R and calf, R rearfoot varus PT-OP-G Mobility & Gait Start: 10/16/22 08:58 Freq: Status: Active Protocol: Document 10/21/22 16:54 [facility] (Rec: 10/21/22 17:57 [facility] [id number]) OP Gait Assessment Comments Gait Comments lean lat over RLE during stance, doesn't push off w/RLE >L PT-OP-K Range of Motion Start: 10/16/22 08:58 Freq: Status: Active Protocol: Document 10/21/22 16:54 [facility] (Rec: 10/21/22 17:57 [facility] [id number]) Ankle and Foot Goniometric Range of Motion Ankle and Foot Right Active Dorsiflexion with Knee Flexed 4 Dorsiflexion with Knee Extended 6 Plantarflexion 55 Inversion 35 Eversion 22 Comments lacking DF to neutral; pain w/ DF and minor w/inversion Left Active Dorsiflexion with Knee Flexed 8 Dorsiflexion with Knee Extended 1 Plantarflexion 50 Inversion 32 Eversion 18 PT-OP-M Strength Start: 10/16/22 08:58 Freq: Status: Active Protocol: Document 10/21/22 16:54 [facility] (Rec: 10/21/22 17:57 [facility] [id number]) Hip Strength Hip Manual Muscle Testing Right Flexion (L2) 4 Good Extension (S1) 3 Fair Abduction 4- Good- External Rotation 4 Good Internal Rotation 4- Good- Left Flexion (L2) 4 Good Extension (S1) 3 Fair Abduction 4 Good External Rotation 4 Good Internal Rotation 4- Good- Knee Strength Knee Manual Muscle Testing Right Flexion (S2) 4 Good Extension (L3) 4- Good- Comments pain ext Left Flexion (S2) 4 Good Extension (L3) 5 Normal Ankle/Foot Strength Ankle and Foot Manual Muscle Testing Right Dorsiflexion (L4) 4+ Good+ Plantarflexion (S1) 5 Normal Inversion 4+ Good+ Eversion (S1) 4+ Good+ Comments some pain in knee w/heel raises Left Dorsiflexion (L4) 5 Normal Plantarflexion (S1) 5 Normal Inversion 5 Normal Eversion (S1) 5 Normal Comments 20 heel raises B Toe Strength Toe Manual Muscle Testing Right Flexion 5 Normal Extension 5 Normal Comments big toe and sm Left Flexion 5 Normal Extension 5 Normal Comments big toe and sm PT-OP-Q Treatments Start: 10/16/22 08:58 Freq: Status: Active Protocol: Document 10/21/22 16:54 [facility] (Rec: 10/21/22 17:57 [facility] [id number]) Self-Care/Home Management Treatment Education Other Education 10 min: inflamtion discussion and encouraged pt to work on elimination diet. edu to pt re : manual work that can be doen to impove foot position and pain and edu howhip and knee stability is going to be appt. PT-OP-T Assessment and Plan Start: 10/16/22 08:58 Freq: Status: Active Protocol: Document 10/21/22 16:54 [facility] (Rec: 10/21/22 17:57 [facility] [id number]) Physical Therapy Assessment Rehab Potential Rehabilitation Potential Good Evaluation Complexity Number of Personal Factors/Comorbidities 3 or More Number of Body Systems Impaired 4 or More Clinical Presentation at Evaluation Evolving Impairments Impairments Activity Tolerance,Balance, Functional Activities, Functional Mobility,Gait,Pain, Posture,ROM,Soft Tissue Mobility,Strength Goals ROM Short Term Goal (STG) Pt will be able to get DF to neutral in both knee ext and flex to improve gait and dec tension on plantar fascia and achilles. STG Duration 12/05 Market Specialist Goal (LTG) Pt will be able to get DF to at least 5 deg in knee ext and 8 in flex to improve gait and dec tension on plantar fascia and achilles. LTG Duration 01/13 balance Short Term Goal (STG) Pt will do SLS for 10 sec on RLE to show improved balance STG Duration 12/05 Market Specialist Goal (LTG) Pt will be able to do SLS for at least 15 sec w/UEs at side and no lat lean/shear LTG Duration 01/13/23 pain Assisted Goal (LTG) Pt will report no more than 2/ 10 pain in B knees or B foot for a week time period. LTG Duration 01/13/23 movement Short Term Goal (STG) Pt will be able to self manage pain to give relief when gets pain during the day. STG Duration 12/05/22 Market Specialist Goal (LTG) Pt will be able go for walks w /o pain and w/o inc pain later after the walks when transitioning from sitting. LTG Duration 01/13/23 Assessment Summary Assessment Pt presents w/multiple areas of pain with major complaint of R heel pain that often radiates to plantar foot along w/recent inc R knee pain. She has s/s of plantar fascitis along w/lack of knee ext and knee pain w/moblity that has imrpoved some over the past couple weeks but is likely complicating her R foot pain along w/her hx of back pain. She has impaired gait mechancis, weakness of LE, dec ROM, and tenderness to plantar fascia along w/pain afters sitting extended especially after walking. She would benefit from skilled PT to work on B foot pain (as L has started to occ be painful, R knee pain, improve gait mechanics, LE strength and improve R ankle and knee ROM to return pt to her typical ADLs w/o inc pain. Physical Therapy Plan Frequency and Duration Frequency of Treatment 2x/Week Duration of treatment (weeks) 12 Plan of Care Start Date 10/21/22 Plan of Care End Date 01/13/23 Therapeutic Interventions Therapeutic Interventions Balance Training,Gait Training ,Home Exercise Program,Joint Mobilizations,Manual Therapy, Neuromuscular Re-education, Orthotic/Prosthetic Management ,Patient/Caregiver Education, Self-Care/Home Management,Soft Tissue Mobilization,Taping, Therapeutic Activities, Therapeutic Exercises Modalities Cold Pack/Ice Massage,Hot Packs,Infrared Therapy, Iontophoresis,Ultrasound Next Visit Focus/Plan Next Note Type Treatment Note Next Visit Plan HEP:short foot exercise, SLS balance, calf stretches, plantar fascia stretch, self ankle DF mob, manual to calf, plantar fascia , fat pad, calcaneal distraction & gapping
--- NOTE | 2022-10-23 08:10 | PT.OPPOC ---
Physical, Occupational & Speech Therapy At [facility] Current Diagnoses Tarsal tunnel syndrome, right lower limb (10/21/22) Flat foot [pes planus] (acquired), right foot (10/21/22) Pain in right knee (10/21/22) Pain in right foot (10/21/22) Pain in left foot (10/21/22) Difficulty in walking, not elsewhere classified (10/21/22) Unsteadiness on feet (10/21/22) Visit Care Team Role Provider Type Monisha Christopher MD Attending Provider Physician Family Provider Primary Care Provider Referring Provider Specialty: Family Practice Address: [address] [place] [address], [facility] [place] [place], [facility] Email: [email or web address] Plan Of Care PT-OP-T Assessment and Plan Start: 10/16/22 08:58 Freq: Status: Active Protocol: Document 10/21/22 16:54 [facility] (Rec: 10/21/22 17:57 [facility] [id number]) Physical Therapy Assessment Rehab Potential Rehabilitation Potential Good Evaluation Complexity Number of Personal Factors/Comorbidities 3 or More Number of Body Systems Impaired 4 or More Clinical Presentation at Evaluation Evolving Impairments Impairments Activity Tolerance,Balance, Functional Activities, Functional Mobility,Gait,Pain, Posture,ROM,Soft Tissue Mobility,Strength Goals ROM Short Term Goal (STG) Pt will be able to get DF to neutral in both knee ext and flex to improve gait and dec tension on plantar fascia and achilles. STG Duration 12/05 Labor Training Manager Goal (LTG) Pt will be able to get DF to at least 5 deg in knee ext and 8 in flex to improve gait and dec tension on plantar fascia and achilles. LTG Duration 01/13 balance Short Term Goal (STG) Pt will do SLS for 10 sec on RLE to show improved balance STG Duration 12/05 Correction Goal (LTG) Pt will be able to do SLS for at least 15 sec w/UEs at side and no lat lean/shear LTG Duration 01/13/23 pain Labor Training Manager Goal (LTG) Pt will report no more than 2/ 10 pain in B knees or B foot for a week time period. LTG Duration 01/13/23 movement Short Term Goal (STG) Pt will be able to self manage pain to give relief when gets pain during the day. STG Duration 12/05/22 Labor Training Manager Goal (LTG) Pt will be able go for walks w /o pain and w/o inc pain later after the walks when transitioning from sitting. LTG Duration 01/13/23 Assessment Summary Assessment Pt presents w/multiple areas of pain with major complaint of R heel pain that often radiates to plantar foot along w/recent inc R knee pain. She has s/s of plantar fascitis along w/lack of knee ext and knee pain w/moblity that has imrpoved some over the past couple weeks but is likely complicating her R foot pain along w/her hx of back pain. She has impaired gait mechancis, weakness of LE, dec ROM, and tenderness to plantar fascia along w/pain afters sitting extended especially after walking. She would benefit from skilled PT to work on B foot pain (as L has started to occ be painful, R knee pain, improve gait mechanics, LE strength and improve R ankle and knee ROM to return pt to her typical ADLs w/o inc pain. Physical Therapy Plan Frequency and Duration Frequency of Treatment 2x/Week Duration of treatment (weeks) 12 Plan of Care Start Date 10/21/22 Plan of Care End Date 01/13/23 Therapeutic Interventions Therapeutic Interventions Balance Training,Gait Training ,Home Exercise Program,Joint Mobilizations,Manual Therapy, Neuromuscular Re-education, Orthotic/Prosthetic Management ,Patient/Caregiver Education, Self-Care/Home Management,Soft Tissue Mobilization,Taping, Therapeutic Activities, Therapeutic Exercises Modalities Cold Pack/Ice Massage,Hot Packs,Infrared Therapy, Iontophoresis,Ultrasound Next Visit Focus/Plan Next Note Type Treatment Note Next Visit Plan HEP:short foot exercise, SLS balance, calf stretches, plantar fascia stretch, self ankle DF mob, manual to calf, plantar fascia , fat pad, calcaneal distraction & gapping Plan of Care Dates Plan of Care Start Date 10/21/22 Plan of Care End Date 01/13/23 Electronically Signed by: Radha Daniels, PT 10/23/22 [id number] If you are in agreement with this Plan of Care, please return a signed and dated copy. I have reviewed this Plan of Care and certify that the skilled therapy services above are required to meet the patient?s needs. Physician Signature Date Printed Name and Credentials Clinical Instructor Signature Printed Name and Credentials
--- NOTE | 2022-10-23 18:29 | PT.OTN ---
Current Diagnoses Tarsal tunnel syndrome, right lower limb (10/23/22) Flat foot [pes planus] (acquired), right foot (10/23/22) Pain in right knee (10/23/22) Pain in right foot (10/23/22) Pain in left foot (10/23/22) Difficulty in walking, not elsewhere classified (10/23/22) Unsteadiness on feet (10/23/22) Physical Therapy Treatment Note PT-OP-A Visit Information Start: 10/16/22 08:58 Freq: Status: Active Protocol: Document 10/23/22 18:24 [facility] (Rec: 10/23/22 18:29 [facility] [id number]) Out-Patient Physical Therapy Visit Information Visit Information Visit Type Treatment Note Visit Note 05/16 Visit Start Time 16:54 Visit Stop Time 17:39 Total Visit Minutes 45 Visit Number 2 Number of AUTOMATION DRIVER Visits 0 PT-OP-B Current Condition Start: 10/16/22 08:58 Freq: Status: Active Protocol: Document 10/21/22 16:54 [facility] (Rec: 10/21/22 17:57 [facility] [id number]) Current Condition History of Current Condition Onset Date worse this spring (hx of some discomfort after long day) Current Complaints R heel pain & plantar foot pain & knee pain History of Current Condition Pt reports in she started to get heel pain which progressed to burning med then lat. She started walking in May w/a friend then friend went on elena then when she came back and they started again and thats when the pain started. It hurts a littl ein the Am and once getting moving , it gets better then in the afternoon then she starts gettng the bruning sensation around the heel. She walks aroudn 4-530. She rests and then when she goes to get up, she has trouble getting up d/t pain and then after dinner, and she gets up to go to bed and it hurts to shift wt into foot and hard to put wt into foot. She has B knee pain. Her driveway is a bit of an incline so if she walks and then walks up/down the driveway then more sore the next am. THe L is starting to ache occ. She saw on September 03 and then her R knee was really swollen and it finally is getting better recently. She tried ice and heat. Heat didn't seem to help a lot. 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 She wants to go as long as she can to avoid knee replacement. She has a pacemaker d/t low HR and Afib. She thinks she has a lot of inflamation and notes her L arm swelled up. She went through tons of tests and PT thought lymphadema and she tried sleeves but they would irridate her skin so bad. Pt reports she has had stomach issues for a long time. She was on prilosec and got off that. She manages this with what she eats by inc salads etc. Describes stomach as touchy. Pt reports she has back pain when she wakes in the AM and she has trouble rolling at first but once she gets moving she is okay. Typically rare pain during the day except when really hard on it when doing gardening etc but it goes away quickly. Pt reports she initially thought it was d/t being overweight. She has a big varicose vein in post calf. She was reading about tarsal tunnel and saw taht varicose veins can be related. walking does seem to help R knee. Pt has some family members w/fibromyalgia and Lupus. Treatment Goals Patient/Caregiver Goals Be able to walk w/o pain, know what to do to help pain PT-OP-C Subjective Start: 10/16/22 08:58 Freq: Status: Active Protocol: Document 10/23/22 18:24 [facility] (Rec: 10/23/22 18:29 [facility] [id number]) OP-PT Subjective Patient Comments Patient Comments Pt reports her heel is sore d/ t walking earlier PT-OP-D Balance Start: 10/16/22 08:58 Freq: Status: Active Protocol: Document 10/21/22 16:54 [facility] (Rec: 10/21/22 17:57 [facility] [id number]) Balance Tests Single Limb Standing Single Limb- Right 8 sec w/UE for balance and lat lean Single Limb- Left 12 sec w/UE for balance and lat lean PT-OP-F Manual Assessment Start: 10/16/22 08:58 Freq: Status: Active Protocol: Document 10/21/22 16:54 [facility] (Rec: 10/21/22 17:57 [facility] [id number]) Manual Assessments Soft Tissue Assessment Soft Tissue Mobility Assessment tender platnar fascia and inf heel Joint Mobility Assessment Joint Mobility Assessment B turned out, WB more on med heel, swelling more around malleoli R and calf, R rearfoot varus PT-OP-G Mobility & Gait Start: 10/16/22 08:58 Freq: Status: Active Protocol: Document 10/21/22 16:54 [facility] (Rec: 10/21/22 17:57 [facility] [id number]) OP Gait Assessment Comments Gait Comments lean lat over RLE during stance, doesn't push off w/RLE >L PT-OP-K Range of Motion Start: 10/16/22 08:58 Freq: Status: Active Protocol: Document 10/21/22 16:54 [facility] (Rec: 10/21/22 17:57 [facility] [id number]) Ankle and Foot Goniometric Range of Motion Ankle and Foot Right Active Dorsiflexion with Knee Flexed 4 Dorsiflexion with Knee Extended 6 Plantarflexion 55 Inversion 35 Eversion 22 Comments lacking DF to neutral; pain w/ DF and minor w/inversion Left Active Dorsiflexion with Knee Flexed 8 Dorsiflexion with Knee Extended 1 Plantarflexion 50 Inversion 32 Eversion 18 PT-OP-M Strength Start: 10/16/22 08:58 Freq: Status: Active Protocol: Document 10/21/22 16:54 [facility] (Rec: 10/21/22 17:57 [facility] [id number]) Hip Strength Hip Manual Muscle Testing Right Flexion (L2) 4 Good Extension (S1) 3 Fair Abduction 4- Good- External Rotation 4 Good Internal Rotation 4- Good- Left Flexion (L2) 4 Good Extension (S1) 3 Fair Abduction 4 Good External Rotation 4 Good Internal Rotation 4- Good- Knee Strength Knee Manual Muscle Testing Right Flexion (S2) 4 Good Extension (L3) 4- Good- Comments pain ext Left Flexion (S2) 4 Good Extension (L3) 5 Normal Ankle/Foot Strength Ankle and Foot Manual Muscle Testing Right Dorsiflexion (L4) 4+ Good+ Plantarflexion (S1) 5 Normal Inversion 4+ Good+ Eversion (S1) 4+ Good+ Comments some pain in knee w/heel raises Left Dorsiflexion (L4) 5 Normal Plantarflexion (S1) 5 Normal Inversion 5 Normal Eversion (S1) 5 Normal Comments 20 heel raises B Toe Strength Toe Manual Muscle Testing Right Flexion 5 Normal Extension 5 Normal Comments big toe and sm Left Flexion 5 Normal Extension 5 Normal Comments big toe and sm PT-OP-Q Treatments Start: 10/16/22 08:58 Freq: Status: Active Protocol: Document 10/23/22 18:24 [facility] (Rec: 10/23/22 18:29 [facility] [id number]) Therapeutic Exercises Sitting Exercises plantar fascia stretch Side right Reps/Minutes 30 secx2 Comments inc time for set up and cues for comfortable rnage Standing Exercises self mob Standing Exercise Name DF w/band at ankle Side right Equipment Used lvl 6 Reps/Minutes 10 june Standing Exercise Name SL june w/10 sec hold Side bilateral Equipment Used finger on bar Reps/Minutes 10 sec x4 B calf stretch Standing Exercise Name fwd lean Side bilateral Reps/Minutes 30 sec Comments inc time for set up and cues for comfortable rnage Manual Therapy Treatment Soft Tissue Mobilization plantar fascia Body Location R Mobilization Type Rolling Intensity/Depth Moderate Body Position Supine Comments w/AAROM DF & big toe ext calf Body Location R achilles and calf Mobilization Type Myofascial Release,Sustained Pressure Intensity/Depth Superficial Body Position Supine Comments w/APs Joint Mobilizations calcaneus Joint R distraction & lat glide FM PT-OP-T Assessment and Plan Start: 10/16/22 08:58 Freq: Status: Active Protocol: Document 10/23/22 18:24 [facility] (Rec: 10/23/22 18:29 [facility] [id number]) Physical Therapy Assessment Goals ROM Short Term Goal (STG) Pt will be able to get DF to neutral in both knee ext and flex to improve gait and dec tension on plantar fascia and achilles. STG Duration 12/05 Hand Screen Printer Goal (LTG) Pt will be able to get DF to at least 5 deg in knee ext and 8 in flex to improve gait and dec tension on plantar fascia and achilles. LTG Duration 01/13 balance Short Term Goal (STG) Pt will do SLS for 10 sec on RLE to show improved balance STG Duration 12/05 Hand Screen Printer Goal (LTG) Pt will be able to do SLS for at least 15 sec w/UEs at side and no lat lean/shear LTG Duration 01/13/23 pain Hand Screen Printer Goal (LTG) Pt will report no more than 2/ 10 pain in B knees or B foot for a week time period. LTG Duration 01/13/23 movement Short Term Goal (STG) Pt will be able to self manage pain to give relief when gets pain during the day. STG Duration 12/05/22 Custodial Goal (LTG) Pt will be able go for walks w /o pain and w/o inc pain later after the walks when transitioning from sitting. LTG Duration 01/13/23 Assessment Summary Assessment After session today, pt reports less burning int he heel and less discomfort and had less antalgic gait pattern than when she entered.S he required cues for comfortable range w/exercises. Signfiicant tenderness and tightness aroudn achilles and calf. Physical Therapy Plan Frequency and Duration Frequency of Treatment 2x/Week Duration of treatment (weeks) 12 Plan of Care Start Date 10/21/22 Plan of Care End Date 01/13/23 Next Visit Focus/Plan Next Note Type Treatment Note Next Visit Plan HEP:short foot exercise, SLS balance, calf stretches, plantar fascia stretch, self ankle DF mob, manual to calf, plantar fascia , fat pad, calcaneal distraction & gapping & talar & tibfib mobility
--- NOTE | 2022-10-28 11:19 | PT.OTN ---
Current Diagnoses Tarsal tunnel syndrome, right lower limb (10/28/22) Flat foot [pes planus] (acquired), right foot (10/28/22) Pain in right knee (10/28/22) Pain in right foot (10/28/22) Pain in left foot (10/28/22) Difficulty in walking, not elsewhere classified (10/28/22) Unsteadiness on feet (10/28/22) Physical Therapy Treatment Note PT-OP-A Visit Information Start: 10/16/22 08:58 Freq: Status: Active Protocol: Document 10/28/22 10:04 [facility] (Rec: 10/28/22 11:19 [facility] [id number]) Out-Patient Physical Therapy Visit Information Visit Information Visit Type Treatment Note Visit Note 06/13 Visit Start Time 10:04 Visit Stop Time 10:46 Total Visit Minutes 42 Visit Number 3 Number of NUDE MODEL Visits 0 PT-OP-B Current Condition Start: 10/16/22 08:58 Freq: Status: Active Protocol: Document 10/21/22 16:54 [facility] (Rec: 10/21/22 17:57 [facility] [id number]) Current Condition History of Current Condition Onset Date worse this spring (hx of some discomfort after long day) Current Complaints R heel pain & plantar foot pain & knee pain History of Current Condition Pt reports in June/July she started to get heel pain which progressed to burning med then lat. She started walking in May w/a friend then friend went on [place] then when she came back and they started again and thats when the pain started. It hurts a littl ein the Am and once getting moving , it gets better then in the afternoon then she starts gettng the bruning sensation around the heel. She walks aroudn 4-530. She rests and then when she goes to get up, she has trouble getting up d/t pain and then after dinner, and she gets up to go to bed and it hurts to shift wt into foot and hard to put wt into foot. She has B knee pain. Her driveway is a bit of an incline so if she walks and then walks up/down the driveway then more sore the next am. THe L is starting to ache occ. She saw on September 03 and then her R knee was really swollen and it finally is getting better recently. She tried ice and heat. Heat didn't seem to help a lot. 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 She wants to go as long as she can to avoid knee replacement. She has a pacemaker d/t low HR and Afib. She thinks she has a lot of inflamation and notes her L arm swelled up. She went through tons of tests and PT thought lymphadema and she tried sleeves but they would irridate her skin so bad. Pt reports she has had stomach issues for a long time. She was on prilosec and got off that. She manages this with what she eats by inc salads etc. Describes stomach as touchy. Pt reports she has back pain when she wakes in the AM and she has trouble rolling at first but once she gets moving she is okay. Typically rare pain during the day except when really hard on it when doing gardening etc but it goes away quickly. Pt reports she initially thought it was d/t being overweight. She has a big varicose vein in post calf. She was reading about tarsal tunnel and saw taht varicose veins can be related. walking does seem to help R knee. Pt has some family members w/fibromyalgia and Lupus. Treatment Goals Patient/Caregiver Goals Be able to walk w/o pain, know what to do to help pain PT-OP-C Subjective Start: 10/16/22 08:58 Freq: Status: Active Protocol: Document 10/28/22 10:04 [facility] (Rec: 10/28/22 11:19 [facility] [id number]) OP-PT Subjective Patient Comments Patient Comments pt reports soreness right after session that lasted about 24 hours. Notes that soreness in evening may be slightly less. Reports in AMs LB is very painful PT-OP-D Balance Start: 10/16/22 08:58 Freq: Status: Active Protocol: Document 10/21/22 16:54 [facility] (Rec: 10/21/22 17:57 [facility] [id number]) Balance Tests Single Limb Standing Single Limb- Right 8 sec w/UE for balance and lat lean Single Limb- Left 12 sec w/UE for balance and lat lean PT-OP-F Manual Assessment Start: 10/16/22 08:58 Freq: Status: Active Protocol: Document 10/21/22 16:54 [facility] (Rec: 10/21/22 17:57 [facility] [id number]) Manual Assessments Soft Tissue Assessment Soft Tissue Mobility Assessment tender platnar fascia and inf heel Joint Mobility Assessment Joint Mobility Assessment B turned out, WB more on med heel, swelling more around malleoli R and calf, R rearfoot varus PT-OP-G Mobility & Gait Start: 10/16/22 08:58 Freq: Status: Active Protocol: Document 10/21/22 16:54 [facility] (Rec: 10/21/22 17:57 [facility] [id number]) OP Gait Assessment Comments Gait Comments lean lat over RLE during stance, doesn't push off w/RLE >L PT-OP-K Range of Motion Start: 10/16/22 08:58 Freq: Status: Active Protocol: Document 10/21/22 16:54 [facility] (Rec: 10/21/22 17:57 [facility] [id number]) Ankle and Foot Goniometric Range of Motion Ankle and Foot Right Active Dorsiflexion with Knee Flexed 4 Dorsiflexion with Knee Extended 6 Plantarflexion 55 Inversion 35 Eversion 22 Comments lacking DF to neutral; pain w/ DF and minor w/inversion Left Active Dorsiflexion with Knee Flexed 8 Dorsiflexion with Knee Extended 1 Plantarflexion 50 Inversion 32 Eversion 18 PT-OP-M Strength Start: 10/16/22 08:58 Freq: Status: Active Protocol: Document 10/21/22 16:54 [facility] (Rec: 10/21/22 17:57 [facility] [id number]) Hip Strength Hip Manual Muscle Testing Right Flexion (L2) 4 Good Extension (S1) 3 Fair Abduction 4- Good- External Rotation 4 Good Internal Rotation 4- Good- Left Flexion (L2) 4 Good Extension (S1) 3 Fair Abduction 4 Good External Rotation 4 Good Internal Rotation 4- Good- Knee Strength Knee Manual Muscle Testing Right Flexion (S2) 4 Good Extension (L3) 4- Good- Comments pain ext Left Flexion (S2) 4 Good Extension (L3) 5 Normal Ankle/Foot Strength Ankle and Foot Manual Muscle Testing Right Dorsiflexion (L4) 4+ Good+ Plantarflexion (S1) 5 Normal Inversion 4+ Good+ Eversion (S1) 4+ Good+ Comments some pain in knee w/heel raises Left Dorsiflexion (L4) 5 Normal Plantarflexion (S1) 5 Normal Inversion 5 Normal Eversion (S1) 5 Normal Comments 20 heel raises B Toe Strength Toe Manual Muscle Testing Right Flexion 5 Normal Extension 5 Normal Comments big toe and sm Left Flexion 5 Normal Extension 5 Normal Comments big toe and sm PT-OP-Q Treatments Start: 10/16/22 08:58 Freq: Status: Active Protocol: Document 10/28/22 10:04 [facility] (Rec: 10/28/22 11:19 [facility] [id number]) Therapeutic Exercises Sitting Exercises plantar fascia stretch Side right Reps/Minutes 1 min hold Comments inc time for set up and cues for comfortable rnage Standing Exercises self mob Standing Exercise Name DF w/band at ankle Side right Equipment Used lvl 6 Reps/Minutes 10 june Standing Exercise Name SL june w/10 sec hold Side bilateral Equipment Used finger on bar Reps/Minutes 10 sec x4 B calf stretch Standing Exercise Name fwd lean Side bilateral Reps/Minutes 1 min hold Comments cues for foot neutral Therapeutic Activity Therapeutic Activity sleep position Reps/Minutes 8 mi Comments s/l w/pillow btwn legs, under arm and towel under side and pillows supporting neck; supine w/pillow under thigh and pillow under lower leg overlapped under other pillwo and towel under back. Edu how to support and importance Manual Therapy Treatment Soft Tissue Mobilization tib ant Body Location R Mobilization Type Myofascial Release,Sustained Pressure Intensity/Depth Moderate Body Position Supine Comments w/APs calf Body Location R achilles and calf Mobilization Type Myofascial Release,Sustained Pressure Intensity/Depth Superficial Body Position Supine Comments w/APs Joint Mobilizations calcaneus Joint R distraction & lat glide FM Comments STM along med border PT-OP-T Assessment and Plan Start: 10/16/22 08:58 Freq: Status: Active Protocol: Document 10/28/22 10:04 [facility] (Rec: 10/28/22 11:19 [facility] [id number]) Physical Therapy Assessment Goals ROM Short Term Goal (STG) Pt will be able to get DF to neutral in both knee ext and flex to improve gait and dec tension on plantar fascia and achilles. STG Duration 12/05 Retirement Goal (LTG) Pt will be able to get DF to at least 5 deg in knee ext and 8 in flex to improve gait and dec tension on plantar fascia and achilles. LTG Duration 01/13 balance Short Term Goal (STG) Pt will do SLS for 10 sec on RLE to show improved balance STG Duration 12/05 Operations Professional Goal (LTG) Pt will be able to do SLS for at least 15 sec w/UEs at side and no lat lean/shear LTG Duration 01/13/23 pain Operations Professional Goal (LTG) Pt will report no more than 2/ 10 pain in B knees or B foot for a week time period. LTG Duration 01/13/23 movement Short Term Goal (STG) Pt will be able to self manage pain to give relief when gets pain during the day. STG Duration 12/05/22 Operations Professional Goal (LTG) Pt will be able go for walks w /o pain and w/o inc pain later after the walks when transitioning from sitting. LTG Duration 01/13/23 Assessment Summary Assessment Pt did well iwth exercises w/ min cues for positioning for set up. She felt loose in ankle and lower leg after manual treatment and had more ease of DF in neutral LE position Physical Therapy Plan Frequency and Duration Frequency of Treatment 2x/Week Duration of treatment (weeks) 12 Plan of Care Start Date 10/21/22 Plan of Care End Date 01/13/23 Next Visit Focus/Plan Next Note Type Treatment Note Next Visit Plan HEP:short foot exercise, SLS balance, calf stretches, plantar fascia stretch, self ankle DF mob, manual to calf, plantar fascia , fat pad, talar & tibfib mobility and progress into midfoot
--- NOTE | 2022-10-30 17:46 | PT.OTN ---
Addendum entered and electronically signed by Radha Daniels, PT 10/30/22 17:50: PT direct supervision and direction to PT student. Original Note: Current Diagnoses Tarsal tunnel syndrome, right lower limb (10/30/22) Flat foot [pes planus] (acquired), right foot (10/30/22) Pain in right knee (10/30/22) Pain in right foot (10/30/22) Pain in left foot (10/30/22) Difficulty in walking, not elsewhere classified (10/30/22) Unsteadiness on feet (10/30/22) Physical Therapy Treatment Note PT-OP-A Visit Information Start: 10/16/22 08:58 Freq: Status: Active Protocol: Document 10/30/22 10:46 (Rec: 10/30/22 11:33 [id number]) Out-Patient Physical Therapy Visit Information Visit Information Visit Type Treatment Note Visit Note 07/14 Visit Start Time 10:48 Visit Stop Time 11:32 Total Visit Minutes 44 Visit Number 4 Number of HALL SUPERVISOR Visits 0 PT-OP-B Current Condition Start: 10/16/22 08:58 Freq: Status: Active Protocol: Document 10/21/22 16:54 [facility] (Rec: 10/21/22 17:57 [facility] [id number]) Current Condition History of Current Condition Onset Date worse this spring (hx of some discomfort after long day) Current Complaints R heel pain & plantar foot pain & knee pain History of Current Condition Pt reports in June/July she started to get heel pain which progressed to burning med then lat. She started walking in May w/a friend then friend went on elena then when she came back and they started again and thats when the pain started. It hurts a littl ein the Am and once getting moving , it gets better then in the afternoon then she starts gettng the bruning sensation around the heel. She walks aroudn 4-530. She rests and then when she goes to get up, she has trouble getting up d/t pain and then after dinner, and she gets up to go to bed and it hurts to shift wt into foot and hard to put wt into foot. She has B knee pain. Her driveway is a bit of an incline so if she walks and then walks up/down the driveway then more sore the next am. THe L is starting to ache occ. She saw on September 03 and then her R knee was really swollen and it finally is getting better recently. She tried ice and heat. Heat didn't seem to help a lot. 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 She wants to go as long as she can to avoid knee replacement. She has a pacemaker d/t low HR and Afib. She thinks she has a lot of inflamation and notes her L arm swelled up. She went through tons of tests and PT thought lymphadema and she tried sleeves but they would irridate her skin so bad. Pt reports she has had stomach issues for a long time. She was on prilosec and got off that. She manages this with what she eats by inc salads etc. Describes stomach as touchy. Pt reports she has back pain when she wakes in the AM and she has trouble rolling at first but once she gets moving she is okay. Typically rare pain during the day except when really hard on it when doing gardening etc but it goes away quickly. Pt reports she initially thought it was d/t being overweight. She has a big varicose vein in post calf. She was reading about tarsal tunnel and saw taht varicose veins can be related. walking does seem to help R knee. Pt has some family members w/fibromyalgia and Lupus. Treatment Goals Patient/Caregiver Goals Be able to walk w/o pain, know what to do to help pain PT-OP-C Subjective Start: 10/16/22 08:58 Freq: Status: Active Protocol: Document 10/30/22 10:46 (Rec: 10/30/22 11:33 [id number]) OP-PT Subjective Patient Comments Patient Comments pt reports that she was sore following last treatment for about a day. Her heel has been feeling better. However she has not been walking as much as she normally does beacuse her walking partner is out of town. PT-OP-D Balance Start: 10/16/22 08:58 Freq: Status: Active Protocol: Document 10/21/22 16:54 [facility] (Rec: 10/21/22 17:57 [facility] [id number]) Balance Tests Single Limb Standing Single Limb- Right 8 sec w/UE for balance and lat lean Single Limb- Left 12 sec w/UE for balance and lat lean PT-OP-F Manual Assessment Start: 10/16/22 08:58 Freq: Status: Active Protocol: Document 10/21/22 16:54 [facility] (Rec: 10/21/22 17:57 [facility] [id number]) Manual Assessments Soft Tissue Assessment Soft Tissue Mobility Assessment tender platnar fascia and inf heel Joint Mobility Assessment Joint Mobility Assessment B turned out, WB more on med heel, swelling more around malleoli R and calf, R rearfoot varus PT-OP-G Mobility & Gait Start: 10/16/22 08:58 Freq: Status: Active Protocol: Document 10/21/22 16:54 [facility] (Rec: 10/21/22 17:57 [facility] [id number]) OP Gait Assessment Comments Gait Comments lean lat over RLE during stance, doesn't push off w/RLE >L PT-OP-K Range of Motion Start: 10/16/22 08:58 Freq: Status: Active Protocol: Document 10/21/22 16:54 [facility] (Rec: 10/21/22 17:57 [facility] [id number]) Ankle and Foot Goniometric Range of Motion Ankle and Foot Right Active Dorsiflexion with Knee Flexed 4 Dorsiflexion with Knee Extended 6 Plantarflexion 55 Inversion 35 Eversion 22 Comments lacking DF to neutral; pain w/ DF and minor w/inversion Left Active Dorsiflexion with Knee Flexed 8 Dorsiflexion with Knee Extended 1 Plantarflexion 50 Inversion 32 Eversion 18 PT-OP-M Strength Start: 10/16/22 08:58 Freq: Status: Active Protocol: Document 10/21/22 16:54 [facility] (Rec: 10/21/22 17:57 [facility] [id number]) Hip Strength Hip Manual Muscle Testing Right Flexion (L2) 4 Good Extension (S1) 3 Fair Abduction 4- Good- External Rotation 4 Good Internal Rotation 4- Good- Left Flexion (L2) 4 Good Extension (S1) 3 Fair Abduction 4 Good External Rotation 4 Good Internal Rotation 4- Good- Knee Strength Knee Manual Muscle Testing Right Flexion (S2) 4 Good Extension (L3) 4- Good- Comments pain ext Left Flexion (S2) 4 Good Extension (L3) 5 Normal Ankle/Foot Strength Ankle and Foot Manual Muscle Testing Right Dorsiflexion (L4) 4+ Good+ Plantarflexion (S1) 5 Normal Inversion 4+ Good+ Eversion (S1) 4+ Good+ Comments some pain in knee w/heel raises Left Dorsiflexion (L4) 5 Normal Plantarflexion (S1) 5 Normal Inversion 5 Normal Eversion (S1) 5 Normal Comments 20 heel raises B Toe Strength Toe Manual Muscle Testing Right Flexion 5 Normal Extension 5 Normal Comments big toe and sm Left Flexion 5 Normal Extension 5 Normal Comments big toe and sm PT-OP-Q Treatments Start: 10/16/22 08:58 Freq: Status: Active Protocol: Document 10/30/22 10:46 (Rec: 10/30/22 12:57 [id number]) Manual Therapy Treatment Soft Tissue Mobilization tib ant Body Location R Mobilization Type Myofascial Release,Sustained Pressure Intensity/Depth Moderate Body Position Supine Comments w/AAROM DF plantar fascia Body Location R medial Mobilization Type Rolling Intensity/Depth Moderate Body Position Supine Comments w/AAROM DF calf Body Location R achilles and calf Mobilization Type Myofascial Release,Sustained Pressure Intensity/Depth Superficial Body Position Supine Comments w/AAROM DF Joint Mobilizations talus Joint R Body Position Supine Comments AP FM & percussion Ankle Joint R tibia Body Position Supine Comments posterior FM Self-Care/Home Management Treatment Education Caregiver Education 9min throughout session: Time was spent at the beginning of session talking to pt about how walking has been as well as general movment. Pt also noted some dizziness w/ movment. PT asked further questions on when pt gets dizzy and what movments cause dizziness. Pt was then informed on how vestibular dysfunctions can cause dizziness w/change in positions and asked if she has been seen for vertigo in the past. Pt was asked to keep note of when she feels dizzy or the spins to see if being seen for a vestibular visit would be beneficial. She was also given instruction on self manual w/rolling pin. PT-OP-T Assessment and Plan Start: 10/16/22 08:58 Freq: Status: Active Protocol: Document 10/30/22 10:46 (Rec: 10/30/22 12:57 [id number]) Physical Therapy Assessment Goals ROM Short Term Goal (STG) Pt will be able to get DF to neutral in both knee ext and flex to improve gait and dec tension on plantar fascia and achilles. STG Duration 12/05 Correction Goal (LTG) Pt will be able to get DF to at least 5 deg in knee ext and 8 in flex to improve gait and dec tension on plantar fascia and achilles. LTG Duration 01/13 balance Short Term Goal (STG) Pt will do SLS for 10 sec on RLE to show improved balance STG Duration 12/05 Crusher Loader Equipment Operator Goal (LTG) Pt will be able to do SLS for at least 15 sec w/UEs at side and no lat lean/shear LTG Duration 01/13/23 pain Crusher Loader Equipment Operator Goal (LTG) Pt will report no more than 2/ 10 pain in B knees or B foot for a week time period. LTG Duration 01/13/23 movement Short Term Goal (STG) Pt will be able to self manage pain to give relief when gets pain during the day. STG Duration 12/05/22 Crusher Loader Equipment Operator Goal (LTG) Pt will be able go for walks w /o pain and w/o inc pain later after the walks when transitioning from sitting. LTG Duration 01/13/23 Assessment Summary Assessment She still is tender around her achilles and soleus during manual treatment but tolerated manual better than she has in past treatment sessions. Following manual treatment there was improved mobility of her ankle but is still lacking DF. Pt had a hard time moving around due to someback pain so supine position was maintained. Physical Therapy Plan Frequency and Duration Frequency of Treatment 2x/Week Duration of treatment (weeks) 12 Plan of Care Start Date 10/21/22 Plan of Care End Date 01/13/23 Next Visit Focus/Plan Next Note Type Treatment Note Next Visit Plan HEP:short foot exercise, SLS balance, calf stretches, plantar fascia stretch, self ankle DF mob, manual to calf, plantar fascia , fat pad, talar & tibfib mobility and progress into midfoot
--- NOTE | 2022-11-04 16:06 | PT.OTN ---
Current Diagnoses Tarsal tunnel syndrome, right lower limb (11/04/22) Flat foot [pes planus] (acquired), right foot (11/04/22) Pain in right knee (11/04/22) Pain in right foot (11/04/22) Pain in left foot (11/04/22) Difficulty in walking, not elsewhere classified (11/04/22) Unsteadiness on feet (11/04/22) Physical Therapy Treatment Note PT-OP-A Visit Information Start: 10/16/22 08:58 Freq: Status: Active Protocol: Document 11/04/22 13:30 [facility] (Rec: 11/04/22 14:17 NB [id number]) Out-Patient Physical Therapy Visit Information Visit Information Visit Type Treatment Note Visit Note 08/13 Visit Start Time 13:30 Visit Stop Time 14:15 Total Visit Minutes 45 Visit Number 5 Number of DECK SPECIALIST Visits 1 PT-OP-B Current Condition Start: 10/16/22 08:58 Freq: Status: Active Protocol: Document 10/21/22 16:54 [facility] (Rec: 10/21/22 17:57 [facility] [id number]) Current Condition History of Current Condition Onset Date worse this spring (hx of some discomfort after long day) Current Complaints R heel pain & plantar foot pain & knee pain History of Current Condition Pt reports in she started to get heel pain which progressed to burning med then lat. She started walking in May w/a friend then friend went on [place] then when she came back and they started again and thats when the pain started. It hurts a littl ein the Am and once getting moving , it gets better then in the afternoon then she starts gettng the bruning sensation around the heel. She walks aroudn 4-530. She rests and then when she goes to get up, she has trouble getting up d/t pain and then after dinner, and she gets up to go to bed and it hurts to shift wt into foot and hard to put wt into foot. She has B knee pain. Her driveway is a bit of an incline so if she walks and then walks up/down the driveway then more sore the next am. THe L is starting to ache occ. She saw on September 03 and then her R knee was really swollen and it finally is getting better recently. She tried ice and heat. Heat didn't seem to help a lot. Pt reports HOME CARE SPECIALIST told her she has R knee arthritis. She wants to go as long as she can to avoid knee replacement. She has a pacemaker d/t low HR and Afib. She thinks she has a lot of inflamation and notes her L arm swelled up. She went through tons of tests and PT thought lymphadema and she tried sleeves but they would irridate her skin so bad. Pt reports she has had stomach issues for a long time. She was on prilosec and got off that. She manages this with what she eats by inc salads etc. Describes stomach as touchy. Pt reports she has back pain when she wakes in the AM and she has trouble rolling at first but once she gets moving she is okay. Typically rare pain during the day except when really hard on it when doing gardening etc but it goes away quickly. Pt reports she initially thought it was d/t being overweight. She has a big varicose vein in post calf. She was reading about tarsal tunnel and saw taht varicose veins can be related. walking does seem to help R knee. Pt has some family members w/fibromyalgia and Lupus. Treatment Goals Patient/Caregiver Goals Be able to walk w/o pain, know what to do to help pain PT-OP-C Subjective Start: 10/16/22 08:58 Freq: Status: Active Protocol: Document 11/04/22 13:30 [facility] (Rec: 11/04/22 14:17 [facility] [id number]) OP-PT Subjective Patient Comments Patient Comments Pranay reports she doesn't know if it's getting better or not. She has not been walking as much the past week but her walking partner is back so she will start again. Usually if they stop walking then her feet really start hurting, but they stop a lot to talk to neighbors and for dog. The plantar fascia stretch hurts her knee and she doesn't always feel the stretch. She's been doing the self mob 5 x10s because she doesn't really feel anything. She does the SL hold while brushing her teeth and tries not to hold on. She uses a timer. PT-OP-D Balance Start: 10/16/22 08:58 Freq: Status: Active Protocol: Document 10/21/22 16:54 [facility] (Rec: 10/21/22 17:57 [facility] [id number]) Balance Tests Single Limb Standing Single Limb- Right 8 sec w/UE for balance and lat lean Single Limb- Left 12 sec w/UE for balance and lat lean PT-OP-F Manual Assessment Start: 10/16/22 08:58 Freq: Status: Active Protocol: Document 10/21/22 16:54 [facility] (Rec: 10/21/22 17:57 [facility] [id number]) Manual Assessments Soft Tissue Assessment Soft Tissue Mobility Assessment tender platnar fascia and inf heel Joint Mobility Assessment Joint Mobility Assessment B turned out, WB more on med heel, swelling more around malleoli R and calf, R rearfoot varus PT-OP-G Mobility & Gait Start: 10/16/22 08:58 Freq: Status: Active Protocol: Document 10/21/22 16:54 [facility] (Rec: 10/21/22 17:57 [facility] [id number]) OP Gait Assessment Comments Gait Comments lean lat over RLE during stance, doesn't push off w/RLE >L PT-OP-K Range of Motion Start: 10/16/22 08:58 Freq: Status: Active Protocol: Document 10/21/22 16:54 [facility] (Rec: 10/21/22 17:57 [facility] [id number]) Ankle and Foot Goniometric Range of Motion Ankle and Foot Right Active Dorsiflexion with Knee Flexed 4 Dorsiflexion with Knee Extended 6 Plantarflexion 55 Inversion 35 Eversion 22 Comments lacking DF to neutral; pain w/ DF and minor w/inversion Left Active Dorsiflexion with Knee Flexed 8 Dorsiflexion with Knee Extended 1 Plantarflexion 50 Inversion 32 Eversion 18 PT-OP-M Strength Start: 10/16/22 08:58 Freq: Status: Active Protocol: Document 10/21/22 16:54 [facility] (Rec: 10/21/22 17:57 [facility] [id number]) Hip Strength Hip Manual Muscle Testing Right Flexion (L2) 4 Good Extension (S1) 3 Fair Abduction 4- Good- External Rotation 4 Good Internal Rotation 4- Good- Left Flexion (L2) 4 Good Extension (S1) 3 Fair Abduction 4 Good External Rotation 4 Good Internal Rotation 4- Good- Knee Strength Knee Manual Muscle Testing Right Flexion (S2) 4 Good Extension (L3) 4- Good- Comments pain ext Left Flexion (S2) 4 Good Extension (L3) 5 Normal Ankle/Foot Strength Ankle and Foot Manual Muscle Testing Right Dorsiflexion (L4) 4+ Good+ Plantarflexion (S1) 5 Normal Inversion 4+ Good+ Eversion (S1) 4+ Good+ Comments some pain in knee w/heel raises Left Dorsiflexion (L4) 5 Normal Plantarflexion (S1) 5 Normal Inversion 5 Normal Eversion (S1) 5 Normal Comments 20 heel raises B Toe Strength Toe Manual Muscle Testing Right Flexion 5 Normal Extension 5 Normal Comments big toe and sm Left Flexion 5 Normal Extension 5 Normal Comments big toe and sm PT-OP-Q Treatments Start: 10/16/22 08:58 Freq: Status: Active Protocol: Document 11/04/22 13:30 [facility] (Rec: 11/04/22 14:17 [facility] [id number]) Therapeutic Exercises Sitting Exercises plantar fascia stretch Sitting Exercise Name modified to legs extended w/ towel to improve knee discomfort Side bilateral Equipment Used towel Reps/Minutes 1 min hold Comments vc for slight knee bend to improve plantar fascia stretch - +feedback Standing Exercises self mob Standing Exercise Name DF w/band at ankle - HEP review Side right Equipment Used lvl 6 Reps/Minutes 10 x5SH Comments cues for LE alignment and weight shift june Standing Exercise Name June w/10 sec hold Side bilateral Equipment Used finger on bar Reps/Minutes 10 sec x10 B Comments cues for increased hip flexion , level pelvis calf stretch Standing Exercise Name fwd lean at wall: 1.gastroc 2. soleus Side bilateral Reps/Minutes 1 min hold (breath cycles) Comments cues for foot neutral, hip width, pain-free range Self-Care/Home Management Treatment Education Patient Education Home Exercise Program Other Education Soleus stretch is added to HEP - HO given. HEP review: plantar flexion stretch modified to use towel w/ legs extended due to pt's complaint of knee aggravation. June cued for increased hip flexion. Pt encouraged to perform DF self-mob 10 x5sec as issued instead of 5 x10sec. PT-OP-T Assessment and Plan Start: 10/16/22 08:58 Freq: Status: Active Protocol: Document 11/04/22 13:30 [facility] (Rec: 11/04/22 14:17 [facility] [id number]) Physical Therapy Assessment Impairments Impairments Activity Tolerance,Balance, Functional Activities, Functional Mobility,Gait,Pain, Posture,ROM,Soft Tissue Mobility,Strength Goals ROM Short Term Goal (STG) Pt will be able to get DF to neutral in both knee ext and flex to improve gait and dec tension on plantar fascia and achilles. STG Duration 12/05 Spa Therapist Goal (LTG) Pt will be able to get DF to at least 5 deg in knee ext and 8 in flex to improve gait and dec tension on plantar fascia and achilles. LTG Duration 01/13 balance Short Term Goal (STG) Pt will do SLS for 10 sec on RLE to show improved balance STG Duration 12/05 Spa Therapist Goal (LTG) Pt will be able to do SLS for at least 15 sec w/UEs at side and no lat lean/shear LTG Duration 01/13/23 pain Longterm Goal (LTG) Pt will report no more than 2/ 10 pain in B knees or B foot for a week time period. LTG Duration 01/13/23 movement Short Term Goal (STG) Pt will be able to self manage pain to give relief when gets pain during the day. STG Duration 12/05/22 Longterm Goal (LTG) Pt will be able go for walks w /o pain and w/o inc pain later after the walks when transitioning from sitting. LTG Duration 01/13/23 Assessment Summary Assessment Treatment focus on HEP review. Pranay can stand for 10s SL marshal without [employer] BOSS with minimal hip flexion, but when cued for increased hip flexion and level pelvis with SL balance she requires [employer] BOSS; heavier ankle strategy observed L>R. Soleus stretch is added to HEP - HO given, and plantar flexion stretch modified to use towel w/ legs extended due to pt's complaint of knee aggravation. She requires cues for not breathholding and for stretching in gentle, pain- free range and will benefit from continued skilled therapeutic intervention. Physical Therapy Plan Frequency and Duration Frequency of Treatment 2x/Week Duration of treatment (weeks) 12 Plan of Care Start Date 10/21/22 Plan of Care End Date 01/13/23 Therapeutic Interventions Therapeutic Interventions Balance Training,Gait Training ,Home Exercise Program,Joint Mobilizations,Manual Therapy, Neuromuscular Re-education, Orthotic/Prosthetic Management ,Patient/Caregiver Education, Self-Care/Home Management,Soft Tissue Mobilization,Taping, Therapeutic Activities, Therapeutic Exercises Modalities Cold Pack/Ice Massage,Hot Packs,Infrared Therapy, Iontophoresis,Ultrasound Next Visit Focus/Plan Next Note Type Treatment Note Next Visit Plan HEP:short foot exercise, SLS balance, calf stretches, plantar fascia stretch, self ankle DF mob, manual to calf, plantar fascia , fat pad, talar & tibfib mobility and progress into midfoot
--- NOTE | 2022-11-17 13:29 | PT.OTN ---
Current Diagnoses Tarsal tunnel syndrome, right lower limb (11/17/22) Flat foot [pes planus] (acquired), right foot (11/17/22) Pain in right knee (11/17/22) Pain in right foot (11/17/22) Pain in left foot (11/17/22) Difficulty in walking, not elsewhere classified (11/17/22) Unsteadiness on feet (11/17/22) Physical Therapy Treatment Note PT-OP-A Visit Information Start: 10/16/22 08:58 Freq: Status: Active Protocol: Document 11/17/22 11:15 [facility] (Rec: 11/17/22 13:25 NB [id number]) Out-Patient Physical Therapy Visit Information Visit Information Visit Type Treatment Note Visit Note 09/13 Visit Start Time 12:19 Visit Stop Time 13:06 Total Visit Minutes 47 Visit Number 6 Number of PRODUCT MANAGEMENT MANAGER Visits 2 PT-OP-B Current Condition Start: 10/16/22 08:58 Freq: Status: Active Protocol: Document 10/21/22 16:54 [facility] (Rec: 10/21/22 17:57 [facility] [id number]) Current Condition History of Current Condition Onset Date worse this spring (hx of some discomfort after long day) Current Complaints R heel pain & plantar foot pain & knee pain History of Current Condition Pt reports in June/July she started to get heel pain which progressed to burning med then lat. She started walking in May w/a friend then friend went on elena then when she came back and they started again and thats when the pain started. It hurts a littl ein the Am and once getting moving , it gets better then in the afternoon then she starts gettng the bruning sensation around the heel. She walks aroudn 4-530. She rests and then when she goes to get up, she has trouble getting up d/t pain and then after dinner, and she gets up to go to bed and it hurts to shift wt into foot and hard to put wt into foot. She has B knee pain. Her driveway is a bit of an incline so if she walks and then walks up/down the driveway then more sore the next am. THe L is starting to ache occ. She saw on September 03 and then her R knee was really swollen and it finally is getting better recently. She tried ice and heat. Heat didn't seem to help a lot. Pt reports CRITICAL CARE RN told her she has R knee arthritis. She wants to go as long as she can to avoid knee replacement. She has a pacemaker d/t low HR and Afib. She thinks she has a lot of inflamation and notes her L arm swelled up. She went through tons of tests and PT thought lymphadema and she tried sleeves but they would irridate her skin so bad. Pt reports she has had stomach issues for a long time. She was on prilosec and got off that. She manages this with what she eats by inc salads etc. Describes stomach as touchy. Pt reports she has back pain when she wakes in the AM and she has trouble rolling at first but once she gets moving she is okay. Typically rare pain during the day except when really hard on it when doing gardening etc but it goes away quickly. Pt reports she initially thought it was d/t being overweight. She has a big varicose vein in post calf. She was reading about tarsal tunnel and saw taht varicose veins can be related. walking does seem to help R knee. Pt has some family members w/fibromyalgia and Lupus. Treatment Goals Patient/Caregiver Goals Be able to walk w/o pain, know what to do to help pain PT-OP-C Subjective Start: 10/16/22 08:58 Freq: Status: Active Protocol: Document 11/17/22 11:15 [facility] (Rec: 11/17/22 13:25 [facility] [id number]) OP-PT Subjective Patient Comments Patient Comments Pranay reports she's walked 3 times and she doesn't feel the burning sensation as much - it's more that under the foot is so tender it's hard to walk on - she wonders about plantar fasciitis. She's only had the tingling two or three times since last visit which is much better. She gets the burning sensation a little bit in the evening when feet are really tired. Her low back hurts first thing in the morning when she walks and works in garden like she did last night. Sleeping with pillow helped at first but seems to make back pain come earlier in the evening and was waking up earlier so she took the pillow back out after a week. She can't take anti- inflammatories including turmeric due to med interractions. She worked on [employer] in PT over a decade ago and hasn't been tracking dizziness/spinning for possible vestibular issue, but she did do vestibular PT years ago. Patient Reported Progress Improving PT-OP-D Balance Start: 10/16/22 08:58 Freq: Status: Active Protocol: Document 10/21/22 16:54 [facility] (Rec: 10/21/22 17:57 [facility] [id number]) Balance Tests Single Limb Standing Single Limb- Right 8 sec w/UE for balance and lat lean Single Limb- Left 12 sec w/UE for balance and lat lean PT-OP-F Manual Assessment Start: 10/16/22 08:58 Freq: Status: Active Protocol: Document 10/21/22 16:54 [facility] (Rec: 10/21/22 17:57 [facility] [id number]) Manual Assessments Soft Tissue Assessment Soft Tissue Mobility Assessment tender platnar fascia and inf heel Joint Mobility Assessment Joint Mobility Assessment B turned out, WB more on med heel, swelling more around malleoli R and calf, R rearfoot varus PT-OP-G Mobility & Gait Start: 10/16/22 08:58 Freq: Status: Active Protocol: Document 10/21/22 16:54 [facility] (Rec: 10/21/22 17:57 [facility] [id number]) OP Gait Assessment Comments Gait Comments lean lat over RLE during stance, doesn't push off w/RLE >L PT-OP-K Range of Motion Start: 10/16/22 08:58 Freq: Status: Active Protocol: Document 10/21/22 16:54 [facility] (Rec: 10/21/22 17:57 [facility] [id number]) Ankle and Foot Goniometric Range of Motion Ankle and Foot Right Active Dorsiflexion with Knee Flexed 4 Dorsiflexion with Knee Extended 6 Plantarflexion 55 Inversion 35 Eversion 22 Comments lacking DF to neutral; pain w/ DF and minor w/inversion Left Active Dorsiflexion with Knee Flexed 8 Dorsiflexion with Knee Extended 1 Plantarflexion 50 Inversion 32 Eversion 18 PT-OP-M Strength Start: 10/16/22 08:58 Freq: Status: Active Protocol: Document 10/21/22 16:54 [facility] (Rec: 10/21/22 17:57 [facility] [id number]) Hip Strength Hip Manual Muscle Testing Right Flexion (L2) 4 Good Extension (S1) 3 Fair Abduction 4- Good- External Rotation 4 Good Internal Rotation 4- Good- Left Flexion (L2) 4 Good Extension (S1) 3 Fair Abduction 4 Good External Rotation 4 Good Internal Rotation 4- Good- Knee Strength Knee Manual Muscle Testing Right Flexion (S2) 4 Good Extension (L3) 4- Good- Comments pain ext Left Flexion (S2) 4 Good Extension (L3) 5 Normal Ankle/Foot Strength Ankle and Foot Manual Muscle Testing Right Dorsiflexion (L4) 4+ Good+ Plantarflexion (S1) 5 Normal Inversion 4+ Good+ Eversion (S1) 4+ Good+ Comments some pain in knee w/heel raises Left Dorsiflexion (L4) 5 Normal Plantarflexion (S1) 5 Normal Inversion 5 Normal Eversion (S1) 5 Normal Comments 20 heel raises B Toe Strength Toe Manual Muscle Testing Right Flexion 5 Normal Extension 5 Normal Comments big toe and sm Left Flexion 5 Normal Extension 5 Normal Comments big toe and sm PT-OP-Q Treatments Start: 10/16/22 08:58 Freq: Status: Active Protocol: Document 11/17/22 11:15 [facility] (Rec: 11/17/22 13:25 [facility] [id number]) Therapeutic Exercises Supine Exercises LTR Supine Exercise Name w/ PPT Side bilateral Reps/Minutes x10 ea Comments tactile cues for PPT, slower pacing, no breathholding. Sitting Exercises plantar fascia stretch Sitting Exercise Name legs extended w/ towel to improve knee discomfort Side bilateral Equipment Used towel Reps/Minutes 1 min hold Comments vc for slight knee bend to improve plantar fascia stretch - +feedback Standing Exercises calf stretch Standing Exercise Name fwd lean at wall: 1.gastroc 2. soleus Side bilateral Reps/Minutes 1 min hold (breath cycles) Comments cues for foot neutral, hip width, pain-free range Therapeutic Activity Therapeutic Activity supine<>sitting EOB Reps/Minutes 2' Comments pt gets occ R low back pain sitting up in bed in the morning and scoots legs to L to push off L shoulder w/ RUE to sitting. Cued log roll w/ PPT and TrA w/ no breathholding. Manual Therapy Treatment Soft Tissue Mobilization plantar fascia Body Location R medial Mobilization Type Rolling Intensity/Depth Moderate Body Position Supine Comments w/AAROM DF Self-Care/Home Management Treatment Education Patient Education Home Exercise Program Other Education HEP review: plantar flexion stretch w/ towel reviewed - cue for knee bend to focus on plantar fascia vs gastroc. Standing soleus stretch pt to take bigger step back and deeper knee bend. Standing SL june pt to add belt for visual cue of level pelvis. Pt awakes w/ low back pain and plantar fascia pain, and finds frozen water bottle massage too painful - Educated pt in core w/ visual aid of TrA m and relationship with diaphragm and importance not to hold breath. Discussed upon waking performinmg LTR w/ PPT (no breathholding) and Plantar fascia stretch, and icing after walks w/ frozen water bottle massage on cushion/pillow instead of ground. Added to HEP: LTR w/ PPT - no HO given. PT-OP-T Assessment and Plan Start: 10/16/22 08:58 Freq: Status: Active Protocol: Document 11/17/22 11:15 [facility] (Rec: 11/17/22 13:25 [facility] [id number]) Physical Therapy Assessment Goals ROM Short Term Goal (STG) Pt will be able to get DF to neutral in both knee ext and flex to improve gait and dec tension on plantar fascia and achilles. STG Duration 12/05 Care Home Goal (LTG) Pt will be able to get DF to at least 5 deg in knee ext and 8 in flex to improve gait and dec tension on plantar fascia and achilles. LTG Duration 01/13 balance Short Term Goal (STG) Pt will do SLS for 10 sec on RLE to show improved balance STG Duration 12/05 Communication Manager Goal (LTG) Pt will be able to do SLS for at least 15 sec w/UEs at side and no lat lean/shear LTG Duration 01/13/23 pain Communication Manager Goal (LTG) Pt will report no more than 2/ 10 pain in B knees or B foot for a week time period. LTG Duration 01/13/23 movement Short Term Goal (STG) Pt will be able to self manage pain to give relief when gets pain during the day. STG Duration 12/05/22 Care Home Goal (LTG) Pt will be able go for walks w /o pain and w/o inc pain later after the walks when transitioning from sitting. LTG Duration 01/13/23 Assessment Summary Assessment Pranay requires cues for breathholding and TrA activation with positional transitions treatment focus is on HEP review and education today. HEP review: plantar flexion stretch w/ towel reviewed - cue for knee bend to focus on plantar fascia vs gastroc. Standing soleus stretch pt to take bigger step back and deeper knee bend. Standing SL march pt to add belt for visual cue of level pelvis. Pt also awakes w/ low back pain and plantar fascia pain R >L, and finds frozen water bottle massage too painful - Educated pt in core w/ visual aid of TrA mm. and relationship with diaphragm and importance not to hold breath. Discussed upon waking performinmg LTR w/ PPT (no breathholding) and Plantar fascia stretch, and icing after walks w/ frozen water bottle massage on cushion/ pillow instead of ground to decrease intensity. Added to HEP: LTR w/ PPT - no HO given. Physical Therapy Plan Frequency and Duration Frequency of Treatment 2x/Week Duration of treatment (weeks) 12 Plan of Care Start Date 10/21/22 Plan of Care End Date 01/13/23 Therapeutic Interventions Therapeutic Interventions Balance Training,Gait Training ,Home Exercise Program,Joint Mobilizations,Manual Therapy, Neuromuscular Re-education, Orthotic/Prosthetic Management ,Patient/Caregiver Education, Self-Care/Home Management,Soft Tissue Mobilization,Taping, Therapeutic Activities, Therapeutic Exercises Modalities Cold Pack/Ice Massage,Hot Packs,Infrared Therapy, Iontophoresis,Ultrasound Next Visit Focus/Plan Next Note Type Treatment Note Next Visit Plan HEP:short foot exercise, SLS balance, calf stretches, plantar fascia stretch, self ankle DF mob, manual to calf, plantar fascia , fat pad, talar & tibfib mobility and progress into midfoot
--- NOTE | 2022-11-20 11:45 | PT.OTN ---
Current Diagnoses Tarsal tunnel syndrome, right lower limb (11/20/22) Flat foot [pes planus] (acquired), right foot (11/20/22) Pain in right knee (11/20/22) Pain in right foot (11/20/22) Pain in left foot (11/20/22) Difficulty in walking, not elsewhere classified (11/20/22) Unsteadiness on feet (11/20/22) Physical Therapy Treatment Note PT-OP-A Visit Information Start: 10/16/22 08:58 Freq: Status: Active Protocol: Document 11/20/22 11:38 [facility] (Rec: 11/20/22 11:45 [facility] [id number]) Out-Patient Physical Therapy Visit Information Visit Information Visit Type Treatment Note Visit Note 10/13 Visit Start Time 10:03 Visit Stop Time 10:46 Total Visit Minutes 43 Visit Number 7 Number of CAMP NURSE Visits 0 PT-OP-B Current Condition Start: 10/16/22 08:58 Freq: Status: Active Protocol: Document 10/21/22 16:54 [facility] (Rec: 10/21/22 17:57 [facility] [id number]) Current Condition History of Current Condition Onset Date worse this spring (hx of some discomfort after long day) Current Complaints R heel pain & plantar foot pain & knee pain History of Current Condition Pt reports in June/July she started to get heel pain which progressed to burning med then lat. She started walking in May w/a friend then friend went on [place] then when she came back and they started again and thats when the pain started. It hurts a littl ein the Am and once getting moving , it gets better then in the afternoon then she starts gettng the bruning sensation around the heel. She walks aroudn 4-530. She rests and then when she goes to get up, she has trouble getting up d/t pain and then after dinner, and she gets up to go to bed and it hurts to shift wt into foot and hard to put wt into foot. She has B knee pain. Her driveway is a bit of an incline so if she walks and then walks up/down the driveway then more sore the next am. THe L is starting to ache occ. She saw on September 03 and then her R knee was really swollen and it finally is getting better recently. She tried ice and heat. Heat didn't seem to help a lot. Pt reports CAVALRY OFFICER told her she has R knee arthritis. She wants to go as long as she can to avoid knee replacement. She has a pacemaker d/t low HR and Afib. She thinks she has a lot of inflamation and notes her L arm swelled up. She went through tons of tests and PT thought lymphadema and she tried sleeves but they would irridate her skin so bad. Pt reports she has had stomach issues for a long time. She was on prilosec and got off that. She manages this with what she eats by inc salads etc. Describes stomach as touchy. Pt reports she has back pain when she wakes in the AM and she has trouble rolling at first but once she gets moving she is okay. Typically rare pain during the day except when really hard on it when doing gardening etc but it goes away quickly. Pt reports she initially thought it was d/t being overweight. She has a big varicose vein in post calf. She was reading about tarsal tunnel and saw taht varicose veins can be related. walking does seem to help R knee. Pt has some family members w/fibromyalgia and Lupus. Treatment Goals Patient/Caregiver Goals Be able to walk w/o pain, know what to do to help pain PT-OP-C Subjective Start: 10/16/22 08:58 Freq: Status: Active Protocol: Document 11/20/22 11:38 [facility] (Rec: 11/20/22 11:45 [facility] [id number]) OP-PT Subjective Patient Comments Patient Comments Pt reports she hasn't walked as much d/t the heat this week . PT-OP-D Balance Start: 10/16/22 08:58 Freq: Status: Active Protocol: Document 10/21/22 16:54 [facility] (Rec: 10/21/22 17:57 [facility] [id number]) Balance Tests Single Limb Standing Single Limb- Right 8 sec w/UE for balance and lat lean Single Limb- Left 12 sec w/UE for balance and lat lean PT-OP-F Manual Assessment Start: 10/16/22 08:58 Freq: Status: Active Protocol: Document 10/21/22 16:54 [facility] (Rec: 10/21/22 17:57 [facility] [id number]) Manual Assessments Soft Tissue Assessment Soft Tissue Mobility Assessment tender platnar fascia and inf heel Joint Mobility Assessment Joint Mobility Assessment B turned out, WB more on med heel, swelling more around malleoli R and calf, R rearfoot varus PT-OP-G Mobility & Gait Start: 10/16/22 08:58 Freq: Status: Active Protocol: Document 10/21/22 16:54 [facility] (Rec: 10/21/22 17:57 [facility] [id number]) OP Gait Assessment Comments Gait Comments lean lat over RLE during stance, doesn't push off w/RLE >L PT-OP-K Range of Motion Start: 10/16/22 08:58 Freq: Status: Active Protocol: Document 10/21/22 16:54 [facility] (Rec: 10/21/22 17:57 [facility] [id number]) Ankle and Foot Goniometric Range of Motion Ankle and Foot Right Active Dorsiflexion with Knee Flexed 4 Dorsiflexion with Knee Extended 6 Plantarflexion 55 Inversion 35 Eversion 22 Comments lacking DF to neutral; pain w/ DF and minor w/inversion Left Active Dorsiflexion with Knee Flexed 8 Dorsiflexion with Knee Extended 1 Plantarflexion 50 Inversion 32 Eversion 18 PT-OP-M Strength Start: 10/16/22 08:58 Freq: Status: Active Protocol: Document 10/21/22 16:54 [facility] (Rec: 10/21/22 17:57 [facility] [id number]) Hip Strength Hip Manual Muscle Testing Right Flexion (L2) 4 Good Extension (S1) 3 Fair Abduction 4- Good- External Rotation 4 Good Internal Rotation 4- Good- Left Flexion (L2) 4 Good Extension (S1) 3 Fair Abduction 4 Good External Rotation 4 Good Internal Rotation 4- Good- Knee Strength Knee Manual Muscle Testing Right Flexion (S2) 4 Good Extension (L3) 4- Good- Comments pain ext Left Flexion (S2) 4 Good Extension (L3) 5 Normal Ankle/Foot Strength Ankle and Foot Manual Muscle Testing Right Dorsiflexion (L4) 4+ Good+ Plantarflexion (S1) 5 Normal Inversion 4+ Good+ Eversion (S1) 4+ Good+ Comments some pain in knee w/heel raises Left Dorsiflexion (L4) 5 Normal Plantarflexion (S1) 5 Normal Inversion 5 Normal Eversion (S1) 5 Normal Comments 20 heel raises B Toe Strength Toe Manual Muscle Testing Right Flexion 5 Normal Extension 5 Normal Comments big toe and sm Left Flexion 5 Normal Extension 5 Normal Comments big toe and sm PT-OP-Q Treatments Start: 10/16/22 08:58 Freq: Status: Active Protocol: Document 11/20/22 11:38 [facility] (Rec: 11/20/22 11:45 [facility] [id number]) Therapeutic Exercises Standing Exercises DF Standing Exercise Name R foot focus Equipment Used 1 hand on counter Reps/Minutes 15 Comments cues no lean back of buttocks Manual Therapy Treatment Soft Tissue Mobilization plantar fascia Body Location R medial Mobilization Type Rolling Intensity/Depth Moderate Body Position Supine Comments w/AAROM DF calf Body Location R achilles and calf & circumfrential of region Mobilization Type Myofascial Release,Sustained Pressure Intensity/Depth Moderate Body Position Supine Comments w/AAROM DF Joint Mobilizations tib fib Joint distal R Body Position Supine Comments 1. superior FM 2. AP tibia FM talus Joint R Body Position Supine Comments distraction FM ,AP FM & med glide percussion calcaneus Joint R distraction & lat glide & tilt FM PT-OP-T Assessment and Plan Start: 10/16/22 08:58 Freq: Status: Active Protocol: Document 11/20/22 11:38 [facility] (Rec: 11/20/22 11:45 [facility] [id number]) Physical Therapy Assessment Goals ROM Short Term Goal (STG) Pt will be able to get DF to neutral in both knee ext and flex to improve gait and dec tension on plantar fascia and achilles. STG Duration 12/05 Application Integration Architect Goal (LTG) Pt will be able to get DF to at least 5 deg in knee ext and 8 in flex to improve gait and dec tension on plantar fascia and achilles. LTG Duration 01/13 balance Short Term Goal (STG) Pt will do SLS for 10 sec on RLE to show improved balance STG Duration 12/05 Application Integration Architect Goal (LTG) Pt will be able to do SLS for at least 15 sec w/UEs at side and no lat lean/shear LTG Duration 01/13/23 pain Group Home Goal (LTG) Pt will report no more than 2/ 10 pain in B knees or B foot for a week time period. LTG Duration 01/13/23 movement Short Term Goal (STG) Pt will be able to self manage pain to give relief when gets pain during the day. STG Duration 12/05/22 Group Home Goal (LTG) Pt will be able go for walks w /o pain and w/o inc pain later after the walks when transitioning from sitting. LTG Duration 01/13/23 Assessment Summary Assessment Pt had much improved DF w/ manual treatmetn and was given active DF exercise to maintain her changes. She does still have a lot of joint restriction at ankle which likely causes improper foot mechanics w/gait and leads to inc pain during walking. Physical Therapy Plan Frequency and Duration Frequency of Treatment 2x/Week Duration of treatment (weeks) 12 Plan of Care Start Date 10/21/22 Plan of Care End Date 01/13/23 Next Visit Focus/Plan Next Note Type Treatment Note Next Visit Plan Add some hip strengthening ( sidesteps resisted, clamshells and SL flex isometric for core) as this affects pt gait mechanics, manual to plantar fascia and subtalar and midfoot to cont to improve moblity
--- NOTE | 2022-11-24 15:44 | PT.OTN ---
Current Diagnoses Tarsal tunnel syndrome, right lower limb (11/24/22) Flat foot [pes planus] (acquired), right foot (11/24/22) Pain in right knee (11/24/22) Pain in right foot (11/24/22) Pain in left foot (11/24/22) Difficulty in walking, not elsewhere classified (11/24/22) Unsteadiness on feet (11/24/22) Physical Therapy Treatment Note PT-OP-A Visit Information Start: 10/16/22 08:58 Freq: Status: Active Protocol: Document 11/24/22 12:21 [facility] (Rec: 11/24/22 13:14 [facility] [id number]) Out-Patient Physical Therapy Visit Information Visit Information Visit Type Treatment Note Visit Note 11/13 Visit Start Time 12:21 Visit Stop Time 01:08 Total Visit Minutes 47 Visit Number 8 Number of GIS COORDINATOR Visits 1 PT-OP-B Current Condition Start: 10/16/22 08:58 Freq: Status: Active Protocol: Document 10/21/22 16:54 [facility] (Rec: 10/21/22 17:57 [facility] [id number]) Current Condition History of Current Condition Onset Date worse this spring (hx of some discomfort after long day) Current Complaints R heel pain & plantar foot pain & knee pain History of Current Condition Pt reports in June/July she started to get heel pain which progressed to burning med then lat. She started walking in May w/a friend then friend went on elena then when she came back and they started again and thats when the pain started. It hurts a littl ein the Am and once getting moving , it gets better then in the afternoon then she starts gettng the bruning sensation around the heel. She walks aroudn 4-530. She rests and then when she goes to get up, she has trouble getting up d/t pain and then after dinner, and she gets up to go to bed and it hurts to shift wt into foot and hard to put wt into foot. She has B knee pain. Her driveway is a bit of an incline so if she walks and then walks up/down the driveway then more sore the next am. THe L is starting to ache occ. She saw on September 03 and then her R knee was really swollen and it finally is getting better recently. She tried ice and heat. Heat didn't seem to help a lot. Pt reports [employer]CHO[employer]RIC[employer] DEVELOPER told her she has R knee arthritis. She wants to go as long as she can to avoid knee replacement. She has a pacemaker d/t low HR and Afib. She thinks she has a lot of inflamation and notes her L arm swelled up. She went through tons of tests and PT thought lymphadema and she tried sleeves but they would irridate her skin so bad. Pt reports she has had stomach issues for a long time. She was on prilosec and got off that. She manages this with what she eats by inc salads etc. Describes stomach as touchy. Pt reports she has back pain when she wakes in the AM and she has trouble rolling at first but once she gets moving she is okay. Typically rare pain during the day except when really hard on it when doing gardening etc but it goes away quickly. Pt reports she initially thought it was d/t being overweight. She has a big varicose vein in post calf. She was reading about tarsal tunnel and saw taht varicose veins can be related. walking does seem to help R knee. Pt has some family members w/fibromyalgia and Lupus. Treatment Goals Patient/Caregiver Goals Be able to walk w/o pain, know what to do to help pain PT-OP-C Subjective Start: 10/16/22 08:58 Freq: Status: Active Protocol: Document 11/24/22 12:21 [facility] (Rec: 11/24/22 13:14 [facility] [id number]) OP-PT Subjective Patient Comments Patient Comments Pt reports she was able to do more walking. She feels really good after manual therapy to foot and her R foot hurts today. She walked yesterday and did experience pain in foot afterwards, but forgot to try icing or stretching. PT-OP-D Balance Start: 10/16/22 08:58 Freq: Status: Active Protocol: Document 10/21/22 16:54 [facility] (Rec: 10/21/22 17:57 [facility] [id number]) Balance Tests Single Limb Standing Single Limb- Right 8 sec w/UE for balance and lat lean Single Limb- Left 12 sec w/UE for balance and lat lean PT-OP-F Manual Assessment Start: 10/16/22 08:58 Freq: Status: Active Protocol: Document 10/21/22 16:54 [facility] (Rec: 10/21/22 17:57 [facility] [id number]) Manual Assessments Soft Tissue Assessment Soft Tissue Mobility Assessment tender platnar fascia and inf heel Joint Mobility Assessment Joint Mobility Assessment B turned out, WB more on med heel, swelling more around malleoli R and calf, R rearfoot varus PT-OP-G Mobility & Gait Start: 10/16/22 08:58 Freq: Status: Active Protocol: Document 10/21/22 16:54 [facility] (Rec: 10/21/22 17:57 [facility] [id number]) OP Gait Assessment Comments Gait Comments lean lat over RLE during stance, doesn't push off w/RLE >L PT-OP-K Range of Motion Start: 10/16/22 08:58 Freq: Status: Active Protocol: Document 10/21/22 16:54 [facility] (Rec: 10/21/22 17:57 [facility] [id number]) Ankle and Foot Goniometric Range of Motion Ankle and Foot Right Active Dorsiflexion with Knee Flexed 4 Dorsiflexion with Knee Extended 6 Plantarflexion 55 Inversion 35 Eversion 22 Comments lacking DF to neutral; pain w/ DF and minor w/inversion Left Active Dorsiflexion with Knee Flexed 8 Dorsiflexion with Knee Extended 1 Plantarflexion 50 Inversion 32 Eversion 18 PT-OP-M Strength Start: 10/16/22 08:58 Freq: Status: Active Protocol: Document 10/21/22 16:54 [facility] (Rec: 10/21/22 17:57 [facility] [id number]) Hip Strength Hip Manual Muscle Testing Right Flexion (L2) 4 Good Extension (S1) 3 Fair Abduction 4- Good- External Rotation 4 Good Internal Rotation 4- Good- Left Flexion (L2) 4 Good Extension (S1) 3 Fair Abduction 4 Good External Rotation 4 Good Internal Rotation 4- Good- Knee Strength Knee Manual Muscle Testing Right Flexion (S2) 4 Good Extension (L3) 4- Good- Comments pain ext Left Flexion (S2) 4 Good Extension (L3) 5 Normal Ankle/Foot Strength Ankle and Foot Manual Muscle Testing Right Dorsiflexion (L4) 4+ Good+ Plantarflexion (S1) 5 Normal Inversion 4+ Good+ Eversion (S1) 4+ Good+ Comments some pain in knee w/heel raises Left Dorsiflexion (L4) 5 Normal Plantarflexion (S1) 5 Normal Inversion 5 Normal Eversion (S1) 5 Normal Comments 20 heel raises B Toe Strength Toe Manual Muscle Testing Right Flexion 5 Normal Extension 5 Normal Comments big toe and sm Left Flexion 5 Normal Extension 5 Normal Comments big toe and sm PT-OP-Q Treatments Start: 10/16/22 08:58 Freq: Status: Active Protocol: Document 11/24/22 12:21 [facility] (Rec: 11/24/22 13:14 [facility] [id number]) Therapeutic Exercises Supine Exercises LTR Supine Exercise Name w/ PPT Side bilateral Reps/Minutes x10 ea Comments verbal cues for PPT, slower pacing, no breathholding. Sidelying Exercises Hip Abduction Sidelying Exercise Name sidelying clamshell - HEP Side bilateral Reps/Minutes x10 ea Comments cues for TrA, no pelvis rocking back Manual Therapy Treatment Soft Tissue Mobilization plantar fascia Body Location R medial Mobilization Type Rolling Intensity/Depth Moderate Body Position Supine Comments w/AAROM DF calf Body Location R achilles and calf & circumfrential of region Mobilization Type Myofascial Release,Sustained Pressure Intensity/Depth Moderate Body Position Supine Comments w/AAROM DF Self-Care/Home Management Treatment Education Patient Education Home Exercise Program Other Education Added to HEP: s/l clamshell - HO given. HEP Verbal review and given with HO: plantar flexion stretch w/ towel: knee bend to focus on plantar fascia vs gastroc. Standing soleus stretch. Standing SL march- add belt for visual cue of level pelvis - pt will try sling strap at home. Discussed upon waking performinmg LTR w/ PPT (no breathholding) and PF stretch, and icing after walks w/ frozen water bottle massage on cushion/pillow instead of ground. PT-OP-T Assessment and Plan Start: 10/16/22 08:58 Freq: Status: Active Protocol: Document 11/24/22 12:21 [facility] (Rec: 11/24/22 13:14 [facility] [id number]) Physical Therapy Assessment Goals ROM Short Term Goal (STG) Pt will be able to get DF to neutral in both knee ext and flex to improve gait and dec tension on plantar fascia and achilles. STG Duration 12/05 Prison Goal (LTG) Pt will be able to get DF to at least 5 deg in knee ext and 8 in flex to improve gait and dec tension on plantar fascia and achilles. LTG Duration 01/13 balance Short Term Goal (STG) Pt will do SLS for 10 sec on RLE to show improved balance STG Duration 12/05 Prison Goal (LTG) Pt will be able to do SLS for at least 15 sec w/UEs at side and no lat lean/shear LTG Duration 01/13/23 pain Prison Goal (LTG) Pt will report no more than 2/ 10 pain in B knees or B foot for a week time period. LTG Duration 01/13/23 movement Short Term Goal (STG) Pt will be able to self manage pain to give relief when gets pain during the day. STG Duration 12/05/22 Prison Goal (LTG) Pt will be able go for walks w /o pain and w/o inc pain later after the walks when transitioning from sitting. LTG Duration 01/13/23 Assessment Summary Assessment Pt presents with R plantar fascial pain and poor recall of HEP cues from 11/24 visit. Treatment focus today on STM to R plantar fascia, Achilles t. and calf, and HEP review - palpable tightness decreases after manual therapy, and pt requirse consistent cues for no breathholding. Added to HEP : s/l clamshell - HO given. HEP Verbal review and given with HO: plantar flexion stretch w/ towel: knee bend to focus on plantar fascia vs gastroc. Standing soleus stretch. Standing SL march- add belt for visual cue of level pelvis - pt will try sling strap at home. Discussed upon waking performinmg LTR w / PPT (no breathholding) and PF stretch, and icing after walks w/ frozen water bottle massage on cushion/pillow instead of ground. Physical Therapy Plan Frequency and Duration Frequency of Treatment 2x/Week Duration of treatment (weeks) 12 Plan of Care Start Date 10/21/22 Plan of Care End Date 01/13/23 Therapeutic Interventions Therapeutic Interventions Balance Training,Gait Training ,Home Exercise Program,Joint Mobilizations,Manual Therapy, Neuromuscular Re-education, Orthotic/Prosthetic Management ,Patient/Caregiver Education, Self-Care/Home Management,Soft Tissue Mobilization,Taping, Therapeutic Activities, Therapeutic Exercises Modalities Cold Pack/Ice Massage,Hot Packs,Infrared Therapy, Iontophoresis,Ultrasound Next Visit Focus/Plan Next Note Type Treatment Note Next Visit Plan Add some hip strengthening ( sidesteps resisted, and SL flex isometric for core) as this affects pt gait mechanics , manual to plantar fascia and subtalar and midfoot to cont to improve moblity
--- NOTE | 2022-11-27 18:04 | PT.OTN ---
Current Diagnoses Tarsal tunnel syndrome, right lower limb (11/27/22) Flat foot [pes planus] (acquired), right foot (11/27/22) Pain in right knee (11/27/22) Pain in right foot (11/27/22) Pain in left foot (11/27/22) Difficulty in walking, not elsewhere classified (11/27/22) Unsteadiness on feet (11/27/22) Physical Therapy Treatment Note PT-OP-A Visit Information Start: 10/16/22 08:58 Freq: Status: Active Protocol: Document 11/27/22 15:57 [facility] (Rec: 11/27/22 18:04 [facility] [id number]) Out-Patient Physical Therapy Visit Information Visit Information Visit Type Treatment Note Visit Note 12/14 Visit Start Time 10:51 Visit Stop Time 11:30 Total Visit Minutes 39 Visit Number 9 Number of CAE ENGINEER Visits 0 PT-OP-B Current Condition Start: 10/16/22 08:58 Freq: Status: Active Protocol: Document 10/21/22 16:54 [facility] (Rec: 10/21/22 17:57 [facility] [id number]) Current Condition History of Current Condition Onset Date worse this spring (hx of some discomfort after long day) Current Complaints R heel pain & plantar foot pain & knee pain History of Current Condition Pt reports in June/July she started to get heel pain which progressed to burning med then lat. She started walking in May w/a friend then friend went on [place] then when she came back and they started again and thats when the pain started. It hurts a littl ein the Am and once getting moving , it gets better then in the afternoon then she starts gettng the bruning sensation around the heel. She walks aroudn 4-530. She rests and then when she goes to get up, she has trouble getting up d/t pain and then after dinner, and she gets up to go to bed and it hurts to shift wt into foot and hard to put wt into foot. She has B knee pain. Her driveway is a bit of an incline so if she walks and then walks up/down the driveway then more sore the next am. THe L is starting to ache occ. She saw on September 03 and then her R knee was really swollen and it finally is getting better recently. She tried ice and heat. Heat didn't seem to help a lot. Pt reports THREAD SINGER told her she has R knee arthritis. She wants to go as long as she can to avoid knee replacement. She has a pacemaker d/t low HR and Afib. She thinks she has a lot of inflamation and notes her L arm swelled up. She went through tons of tests and PT thought lymphadema and she tried sleeves but they would irridate her skin so bad. Pt reports she has had stomach issues for a long time. She was on prilosec and got off that. She manages this with what she eats by inc salads etc. Describes stomach as touchy. Pt reports she has back pain when she wakes in the AM and she has trouble rolling at first but once she gets moving she is okay. Typically rare pain during the day except when really hard on it when doing gardening etc but it goes away quickly. Pt reports she initially thought it was d/t being overweight. She has a big varicose vein in post calf. She was reading about tarsal tunnel and saw taht varicose veins can be related. walking does seem to help R knee. Pt has some family members w/fibromyalgia and Lupus. Treatment Goals Patient/Caregiver Goals Be able to walk w/o pain, know what to do to help pain PT-OP-C Subjective Start: 10/16/22 08:58 Freq: Status: Active Protocol: Document 11/27/22 15:57 [facility] (Rec: 11/27/22 18:04 [facility] [id number]) OP-PT Subjective Patient Comments Patient Comments Pt reports she has only had the burning a couple times recently but still pull and is painful to step on when standing up in the evening especially PT-OP-D Balance Start: 10/16/22 08:58 Freq: Status: Active Protocol: Document 10/21/22 16:54 [facility] (Rec: 10/21/22 17:57 [facility] [id number]) Balance Tests Single Limb Standing Single Limb- Right 8 sec w/UE for balance and lat lean Single Limb- Left 12 sec w/UE for balance and lat lean PT-OP-F Manual Assessment Start: 10/16/22 08:58 Freq: Status: Active Protocol: Document 10/21/22 16:54 [facility] (Rec: 10/21/22 17:57 [facility] [id number]) Manual Assessments Soft Tissue Assessment Soft Tissue Mobility Assessment tender platnar fascia and inf heel Joint Mobility Assessment Joint Mobility Assessment B turned out, WB more on med heel, swelling more around malleoli R and calf, R rearfoot varus PT-OP-G Mobility & Gait Start: 10/16/22 08:58 Freq: Status: Active Protocol: Document 10/21/22 16:54 [facility] (Rec: 10/21/22 17:57 [facility] [id number]) OP Gait Assessment Comments Gait Comments lean lat over RLE during stance, doesn't push off w/RLE >L PT-OP-K Range of Motion Start: 10/16/22 08:58 Freq: Status: Active Protocol: Document 10/21/22 16:54 [facility] (Rec: 10/21/22 17:57 [facility] [id number]) Ankle and Foot Goniometric Range of Motion Ankle and Foot Right Active Dorsiflexion with Knee Flexed 4 Dorsiflexion with Knee Extended 6 Plantarflexion 55 Inversion 35 Eversion 22 Comments lacking DF to neutral; pain w/ DF and minor w/inversion Left Active Dorsiflexion with Knee Flexed 8 Dorsiflexion with Knee Extended 1 Plantarflexion 50 Inversion 32 Eversion 18 PT-OP-M Strength Start: 10/16/22 08:58 Freq: Status: Active Protocol: Document 10/21/22 16:54 [facility] (Rec: 10/21/22 17:57 [facility] [id number]) Hip Strength Hip Manual Muscle Testing Right Flexion (L2) 4 Good Extension (S1) 3 Fair Abduction 4- Good- External Rotation 4 Good Internal Rotation 4- Good- Left Flexion (L2) 4 Good Extension (S1) 3 Fair Abduction 4 Good External Rotation 4 Good Internal Rotation 4- Good- Knee Strength Knee Manual Muscle Testing Right Flexion (S2) 4 Good Extension (L3) 4- Good- Comments pain ext Left Flexion (S2) 4 Good Extension (L3) 5 Normal Ankle/Foot Strength Ankle and Foot Manual Muscle Testing Right Dorsiflexion (L4) 4+ Good+ Plantarflexion (S1) 5 Normal Inversion 4+ Good+ Eversion (S1) 4+ Good+ Comments some pain in knee w/heel raises Left Dorsiflexion (L4) 5 Normal Plantarflexion (S1) 5 Normal Inversion 5 Normal Eversion (S1) 5 Normal Comments 20 heel raises B Toe Strength Toe Manual Muscle Testing Right Flexion 5 Normal Extension 5 Normal Comments big toe and sm Left Flexion 5 Normal Extension 5 Normal Comments big toe and sm PT-OP-Q Treatments Start: 10/16/22 08:58 Freq: Status: Active Protocol: Document 11/27/22 15:57 [facility] (Rec: 11/27/22 18:04 [facility] [id number]) Therapeutic Exercises Sitting Exercises arch raises Side bilateral Reps/Minutes 2x10 Manual Therapy Treatment Soft Tissue Mobilization plantar fascia Body Location R medial Mobilization Type Rolling Intensity/Depth Moderate Body Position Supine Comments w/AAROM DF calf Body Location R achilles and calf & circumfrential of region Mobilization Type Myofascial Release,Sustained Pressure Intensity/Depth Moderate Body Position Supine Comments w/AAROM DF Joint Mobilizations midfoot Comments 1. cuneiform 1 and 2 med glide 2. cuboid lat FM 3. navicular med glide FM tib fib Comments distal fib sup FM talus Joint R Comments med glide FM calcaneus Joint distraction FM Self-Care/Home Management Treatment Education Other Education 8 min:Discussion of importance for shoe to have enoughs upport of her foot and how a shoe that is tooe narrow can cause the toes curling in as she noted had happened. Discussed importance of stable arch to dec tension on plantar fascia PT-OP-T Assessment and Plan Start: 10/16/22 08:58 Freq: Status: Active Protocol: Document 11/27/22 15:57 [facility] (Rec: 11/27/22 18:04 [facility] [id number]) Physical Therapy Assessment Goals ROM Short Term Goal (STG) Pt will be able to get DF to neutral in both knee ext and flex to improve gait and dec tension on plantar fascia and achilles. STG Duration 12/05 Element Winding Machine Tender Goal (LTG) Pt will be able to get DF to at least 5 deg in knee ext and 8 in flex to improve gait and dec tension on plantar fascia and achilles. LTG Duration 01/13 balance Short Term Goal (STG) Pt will do SLS for 10 sec on RLE to show improved balance STG Duration 12/05 Element Winding Machine Tender Goal (LTG) Pt will be able to do SLS for at least 15 sec w/UEs at side and no lat lean/shear LTG Duration 01/13/23 pain Fdc Goal (LTG) Pt will report no more than 2/ 10 pain in B knees or B foot for a week time period. LTG Duration 01/13/23 movement Short Term Goal (STG) Pt will be able to self manage pain to give relief when gets pain during the day. STG Duration 12/05/22 Element Winding Machine Tender Goal (LTG) Pt will be able go for walks w /o pain and w/o inc pain later after the walks when transitioning from sitting. LTG Duration 01/13/23 Assessment Summary Assessment pt had much improved arch position w/manual and had greater ease getting into more neutral arch position after manual. She struggled initially w/being able to raise arch w/o lifting big toe or heel. Cont to have a lot of tension w/plantar fascia. Physical Therapy Plan Frequency and Duration Frequency of Treatment 2x/Week Duration of treatment (weeks) 12 Plan of Care Start Date 10/21/22 Plan of Care End Date 01/13/23 Next Visit Focus/Plan Next Note Type Progress Note Next Visit Plan Add some hip strengthening ( sidesteps resisted, and SL flex isometric for core) as this affects pt gait mechanics , manual to plantar fascia and subtalar and midfoot to cont to improve moblity
--- NOTE | 2022-12-01 17:56 | PT.OTN ---
Current Diagnoses Tarsal tunnel syndrome, right lower limb (12/01/22) Flat foot [pes planus] (acquired), right foot (12/01/22) Pain in right knee (12/01/22) Pain in right foot (12/01/22) Pain in left foot (12/01/22) Difficulty in walking, not elsewhere classified (12/01/22) Unsteadiness on feet (12/01/22) Physical Therapy Treatment Note PT-OP-A Visit Information Start: 10/16/22 08:58 Freq: Status: Active Protocol: Document 12/01/22 16:45 [facility] (Rec: 12/01/22 17:56 [facility] [id number]) Out-Patient Physical Therapy Visit Information Visit Information Visit Type Progress Note Visit Note 04/15 Visit Start Time 16:50 Visit Stop Time 17:33 Total Visit Minutes 43 Visit Number 10 Number of HIGH FREQUENCY MILL OPERATOR Visits 0 PT-OP-B Current Condition Start: 10/16/22 08:58 Freq: Status: Active Protocol: Document 10/21/22 16:54 [facility] (Rec: 10/21/22 17:57 [facility] [id number]) Current Condition History of Current Condition Onset Date worse this spring (hx of some discomfort after long day) Current Complaints R heel pain & plantar foot pain & knee pain History of Current Condition Pt reports in June/July she started to get heel pain which progressed to burning med then lat. She started walking in May w/a friend then friend went on elena then when she came back and they started again and thats when the pain started. It hurts a littl ein the Am and once getting moving , it gets better then in the afternoon then she starts gettng the bruning sensation around the heel. She walks aroudn 4-530. She rests and then when she goes to get up, she has trouble getting up d/t pain and then after dinner, and she gets up to go to bed and it hurts to shift wt into foot and hard to put wt into foot. She has B knee pain. Her driveway is a bit of an incline so if she walks and then walks up/down the driveway then more sore the next am. THe L is starting to ache occ. She saw on September 03 and then her R knee was really swollen and it finally is getting better recently. She tried ice and heat. Heat didn't seem to help a lot. Pt reports P[employer]ER RELINER told her she has R knee arthritis. She wants to go as long as she can to avoid knee replacement. She has a pacemaker d/t low HR and Afib. She thinks she has a lot of inflamation and notes her L arm swelled up. She went through tons of tests and PT thought lymphadema and she tried sleeves but they would irridate her skin so bad. Pt reports she has had stomach issues for a long time. She was on prilosec and got off that. She manages this with what she eats by inc salads etc. Describes stomach as touchy. Pt reports she has back pain when she wakes in the AM and she has trouble rolling at first but once she gets moving she is okay. Typically rare pain during the day except when really hard on it when doing gardening etc but it goes away quickly. Pt reports she initially thought it was d/t being overweight. She has a big varicose vein in post calf. She was reading about tarsal tunnel and saw taht varicose veins can be related. walking does seem to help R knee. Pt has some family members w/fibromyalgia and Lupus. Treatment Goals Patient/Caregiver Goals Be able to walk w/o pain, know what to do to help pain PT-OP-C Subjective Start: 10/16/22 08:58 Freq: Status: Active Protocol: Document 12/01/22 16:45 [facility] (Rec: 12/01/22 17:56 [facility] [id number]) OP-PT Subjective Patient Comments Patient Comments Pt reports she has been looking up arch supports. 95% of the time the burning pain is gone but heel still hurts in evening and is worse after walks PT-OP-D Balance Start: 10/16/22 08:58 Freq: Status: Active Protocol: Document 12/01/22 16:45 [facility] (Rec: 12/01/22 17:56 [facility] [id number]) Balance Tests Single Limb Standing Single Limb- Right 15 sec Single Limb- Left 18 sec PT-OP-F Manual Assessment Start: 10/16/22 08:58 Freq: Status: Active Protocol: Document 10/21/22 16:54 [facility] (Rec: 10/21/22 17:57 [facility] [id number]) Manual Assessments Soft Tissue Assessment Soft Tissue Mobility Assessment tender platnar fascia and inf heel Joint Mobility Assessment Joint Mobility Assessment B turned out, WB more on med heel, swelling more around malleoli R and calf, R rearfoot varus PT-OP-G Mobility & Gait Start: 10/16/22 08:58 Freq: Status: Active Protocol: Document 10/21/22 16:54 [facility] (Rec: 10/21/22 17:57 [facility] [id number]) OP Gait Assessment Comments Gait Comments lean lat over RLE during stance, doesn't push off w/RLE >L PT-OP-K Range of Motion Start: 10/16/22 08:58 Freq: Status: Active Protocol: Document 12/01/22 16:45 [facility] (Rec: 12/01/22 17:56 [facility] [id number]) Ankle and Foot Goniometric Range of Motion Ankle and Foot Right Active Dorsiflexion with Knee Flexed 3 Dorsiflexion with Knee Extended 1 Plantarflexion 55 Inversion 41 Eversion 22 Comments tugging in heel w/DF PT-OP-M Strength Start: 10/16/22 08:58 Freq: Status: Active Protocol: Document 10/21/22 16:54 [facility] (Rec: 10/21/22 17:57 [facility] [id number]) Hip Strength Hip Manual Muscle Testing Right Flexion (L2) 4 Good Extension (S1) 3 Fair Abduction 4- Good- External Rotation 4 Good Internal Rotation 4- Good- Left Flexion (L2) 4 Good Extension (S1) 3 Fair Abduction 4 Good External Rotation 4 Good Internal Rotation 4- Good- Knee Strength Knee Manual Muscle Testing Right Flexion (S2) 4 Good Extension (L3) 4- Good- Comments pain ext Left Flexion (S2) 4 Good Extension (L3) 5 Normal Ankle/Foot Strength Ankle and Foot Manual Muscle Testing Right Dorsiflexion (L4) 4+ Good+ Plantarflexion (S1) 5 Normal Inversion 4+ Good+ Eversion (S1) 4+ Good+ Comments some pain in knee w/heel raises Left Dorsiflexion (L4) 5 Normal Plantarflexion (S1) 5 Normal Inversion 5 Normal Eversion (S1) 5 Normal Comments 20 heel raises B Toe Strength Toe Manual Muscle Testing Right Flexion 5 Normal Extension 5 Normal Comments big toe and sm Left Flexion 5 Normal Extension 5 Normal Comments big toe and sm PT-OP-Q Treatments Start: 10/16/22 08:58 Freq: Status: Active Protocol: Document 12/01/22 16:45 [facility] (Rec: 12/01/22 17:56 [facility] [id number]) Therapeutic Exercises Sidelying Exercises Hip Abduction Side right Reps/Minutes 10 Comments max cues for position Manual Therapy Treatment Soft Tissue Mobilization plantar fascia Body Location R medial Mobilization Type Rolling Intensity/Depth Moderate Body Position Supine Comments w/AAROM DF Joint Mobilizations hip Comments supine on axis IR FM; s/l hip abd FM Neuro Re-Education Treatment Balance Activities SLS Details trials B Reps/Duration 2 min Self-Care/Home Management Treatment Education Other Education 17 min: trial of different orthortics and discussed improtance of plastic or other hard material support as foam will compress. Pt tried 3 different orthotics w/PT watching pt walk and stand. Sharma colored superfeet dec pt pain i heel and dec pronation and hip add on R PT-OP-T Assessment and Plan Start: 10/16/22 08:58 Freq: Status: Active Protocol: Document 12/01/22 16:45 [facility] (Rec: 12/01/22 17:56 [facility] [id number]) Physical Therapy Assessment Goals ROM Short Term Goal (STG) Pt will be able to get DF to neutral in both knee ext and flex to improve gait and dec tension on plantar fascia and achilles. STG Duration achieved 12/01 Funeral Planner Goal (LTG) Pt will be able to get DF to at least 5 deg in knee ext and 8 in flex to improve gait and dec tension on plantar fascia and achilles. LTG Duration 01/13 balance Short Term Goal (STG) Pt will do SLS for 10 sec on RLE to show improved balance STG Duration achieved Half-Way Goal (LTG) Pt will be able to do SLS for at least 15 sec w/UEs at side and no lat lean/shear LTG Duration achieved 12/01 pain Half-Way Goal (LTG) Pt will report no more than 2/ 10 pain in B knees or B foot for a week time period. 12/01-less of the burning in heel (95% better); pain still in evening charlene days she walked ; limited knee pain -occ twinges LTG Duration 01/13/23 movement Short Term Goal (STG) Pt will be able to self manage pain to give relief when gets pain during the day. 12/01-pt stretching, but does note still evening pain STG Duration 12/05/22 Funeral Planner Goal (LTG) Pt will be able go for walks w /o pain and w/o inc pain later after the walks when transitioning from sitting. LTG Duration 01/13/23 Assessment Summary Assessment Pt tended to add RLE w/gait, which is likely affecting pt's knees and foot pain along w/ contribute to her back pain.S he has more R foot pronation during gait w/dec push off. She did improve w/trial of orthotic and note dec pressure on R heel w/use and feeling of support through arch. Pt encouraged to buy some to help w/foot especially when on walks. Pt has made great improvements w/balance and ROM but does still have tightness in calf and plantar fascia which likely is contributing to her pain. Pt to cont PT to wrok on LE mobility and strength in order to improve gait mechanics and dec pt pain . Physical Therapy Plan Frequency and Duration Frequency of Treatment 2x/Week Duration of treatment (weeks) 12 Plan of Care Start Date 10/21/22 Plan of Care End Date 01/13/23 Next Visit Focus/Plan Next Note Type Treatment Note Next Visit Plan Add further hip strengthening (sidesteps resisted, and SL flex isometric for core) as this affects pt gait mechanics , manual to plantar fascia and subtalar and midfoot to cont to improve moblity
--- NOTE | 2022-12-01 17:56 | PT.OPPOC ---
Physical, Occupational & Speech Therapy At [facility] Current Diagnoses Tarsal tunnel syndrome, right lower limb (12/01/22) Flat foot [pes planus] (acquired), right foot (12/01/22) Pain in right knee (12/01/22) Pain in right foot (12/01/22) Pain in left foot (12/01/22) Difficulty in walking, not elsewhere classified (12/01/22) Unsteadiness on feet (12/01/22) Visit Care Team Role Provider Type Monisha Christopher MD Attending Provider Physician Family Provider Primary Care Provider Referring Provider Specialty: Family Practice Address: [address] [place] [address], [facility] [place] [place], [facility] Email: [email or web address] Plan Of Care PT-OP-T Assessment and Plan Start: 10/16/22 08:58 Freq: Status: Active Protocol: Document 12/01/22 16:45 [facility] (Rec: 12/01/22 17:56 [facility] [id number]) Physical Therapy Assessment Goals ROM Short Term Goal (STG) Pt will be able to get DF to neutral in both knee ext and flex to improve gait and dec tension on plantar fascia and achilles. STG Duration achieved 12/01 Shelter Goal (LTG) Pt will be able to get DF to at least 5 deg in knee ext and 8 in flex to improve gait and dec tension on plantar fascia and achilles. LTG Duration 01/13 balance Short Term Goal (STG) Pt will do SLS for 10 sec on RLE to show improved balance STG Duration achieved Shelter Goal (LTG) Pt will be able to do SLS for at least 15 sec w/UEs at side and no lat lean/shear LTG Duration achieved 12/01 pain Bilingual Operator Goal (LTG) Pt will report no more than 2/ 10 pain in B knees or B foot for a week time period. 12/01-less of the burning in heel (95% better); pain still in evening charlene days she walked ; limited knee pain -occ twinges LTG Duration 01/13/23 movement Short Term Goal (STG) Pt will be able to self manage pain to give relief when gets pain during the day. 12/01-pt stretching, but does note still evening pain STG Duration 12/05/22 Shelter Goal (LTG) Pt will be able go for walks w /o pain and w/o inc pain later after the walks when transitioning from sitting. LTG Duration 01/13/23 Assessment Summary Assessment Pt tended to add RLE w/gait, which is likely affecting pt's knees and foot pain along w/ contribute to her back pain.S he has more R foot pronation during gait w/dec push off. She did improve w/trial of orthotic and note dec pressure on R heel w/use and feeling of support through arch. Pt encouraged to buy some to help w/foot especially when on walks. Pt has made great improvements w/balance and ROM but does still have tightness in calf and plantar fascia which likely is contributing to her pain. Pt to cont PT to wrok on LE mobility and strength in order to improve gait mechanics and dec pt pain . Physical Therapy Plan Frequency and Duration Frequency of Treatment 2x/Week Duration of treatment (weeks) 12 Plan of Care Start Date 10/21/22 Plan of Care End Date 01/13/23 Next Visit Focus/Plan Next Note Type Treatment Note Next Visit Plan Add further hip strengthening (sidesteps resisted, and SL flex isometric for core) as this affects pt gait mechanics , manual to plantar fascia and subtalar and midfoot to cont to improve moblity Plan of Care Dates Plan of Care Start Date 10/21/22 Plan of Care End Date 01/13/23 Electronically Signed by: Radha Daniels, PT 12/01/22 [id number] If you are in agreement with this Plan of Care, please return a signed and dated copy. I have reviewed this Plan of Care and certify that the skilled therapy services above are required to meet the patient?s needs. Physician Signature Date Printed Name and Credentials Clinical Instructor Signature Printed Name and Credentials
--- NOTE | 2022-12-17 18:33 | PT.OTN ---
Current Diagnoses Tarsal tunnel syndrome, right lower limb (12/17/22) Flat foot [pes planus] (acquired), right foot (12/17/22) Pain in right knee (12/17/22) Pain in right foot (12/17/22) Pain in left foot (12/17/22) Difficulty in walking, not elsewhere classified (12/17/22) Unsteadiness on feet (12/17/22) Physical Therapy Treatment Note PT-OP-A Visit Information Start: 10/16/22 08:58 Freq: Status: Active Protocol: Document 12/17/22 18:24 [facility] (Rec: 12/17/22 18:32 [facility] [id number]) Out-Patient Physical Therapy Visit Information Visit Information Visit Type Treatment Note Visit Note 05/16 Visit Start Time 13:35 Visit Stop Time 14:16 Total Visit Minutes 41 Visit Number 11 Number of MEETING FACILITATOR Visits 0 PT-OP-B Current Condition Start: 10/16/22 08:58 Freq: Status: Active Protocol: Document 10/21/22 16:54 [facility] (Rec: 10/21/22 17:57 [facility] [id number]) Current Condition History of Current Condition Onset Date worse this spring (hx of some discomfort after long day) Current Complaints R heel pain & plantar foot pain & knee pain History of Current Condition Pt reports in June/July she started to get heel pain which progressed to burning med then lat. She started walking in May w/a friend then friend went on [place] then when she came back and they started again and thats when the pain started. It hurts a littl ein the Am and once getting moving , it gets better then in the afternoon then she starts gettng the bruning sensation around the heel. She walks aroudn 4-530. She rests and then when she goes to get up, she has trouble getting up d/t pain and then after dinner, and she gets up to go to bed and it hurts to shift wt into foot and hard to put wt into foot. She has B knee pain. Her driveway is a bit of an incline so if she walks and then walks up/down the driveway then more sore the next am. THe L is starting to ache occ. She saw on September 03 and then her R knee was really swollen and it finally is getting better recently. She tried ice and heat. Heat didn't seem to help a lot. Pt reports SECURITY SME told her she has R knee arthritis. She wants to go as long as she can to avoid knee replacement. She has a pacemaker d/t low HR and Afib. She thinks she has a lot of inflamation and notes her L arm swelled up. She went through tons of tests and PT thought lymphadema and she tried sleeves but they would irridate her skin so bad. Pt reports she has had stomach issues for a long time. She was on prilosec and got off that. She manages this with what she eats by inc salads etc. Describes stomach as touchy. Pt reports she has back pain when she wakes in the AM and she has trouble rolling at first but once she gets moving she is okay. Typically rare pain during the day except when really hard on it when doing gardening etc but it goes away quickly. Pt reports she initially thought it was d/t being overweight. She has a big varicose vein in post calf. She was reading about tarsal tunnel and saw taht varicose veins can be related. walking does seem to help R knee. Pt has some family members w/fibromyalgia and Lupus. Treatment Goals Patient/Caregiver Goals Be able to walk w/o pain, know what to do to help pain PT-OP-C Subjective Start: 10/16/22 08:58 Freq: Status: Active Protocol: Document 12/17/22 18:24 [facility] (Rec: 12/17/22 18:32 [facility] [id number]) OP-PT Subjective Patient Comments Patient Comments Pt reports some days are better than others. Walking days or days on her feet for a long time are the worst. PT-OP-D Balance Start: 10/16/22 08:58 Freq: Status: Active Protocol: Document 12/01/22 16:45 [facility] (Rec: 12/01/22 17:56 [facility] [id number]) Balance Tests Single Limb Standing Single Limb- Right 15 sec Single Limb- Left 18 sec PT-OP-F Manual Assessment Start: 10/16/22 08:58 Freq: Status: Active Protocol: Document 10/21/22 16:54 [facility] (Rec: 10/21/22 17:57 [facility] [id number]) Manual Assessments Soft Tissue Assessment Soft Tissue Mobility Assessment tender platnar fascia and inf heel Joint Mobility Assessment Joint Mobility Assessment B turned out, WB more on med heel, swelling more around malleoli R and calf, R rearfoot varus PT-OP-G Mobility & Gait Start: 10/16/22 08:58 Freq: Status: Active Protocol: Document 10/21/22 16:54 [facility] (Rec: 10/21/22 17:57 [facility] [id number]) OP Gait Assessment Comments Gait Comments lean lat over RLE during stance, doesn't push off w/RLE >L PT-OP-K Range of Motion Start: 10/16/22 08:58 Freq: Status: Active Protocol: Document 12/01/22 16:45 [facility] (Rec: 12/01/22 17:56 [facility] [id number]) Ankle and Foot Goniometric Range of Motion Ankle and Foot Right Active Dorsiflexion with Knee Flexed 3 Dorsiflexion with Knee Extended 1 Plantarflexion 55 Inversion 41 Eversion 22 Comments tugging in heel w/DF PT-OP-M Strength Start: 10/16/22 08:58 Freq: Status: Active Protocol: Document 10/21/22 16:54 [facility] (Rec: 10/21/22 17:57 [facility] [id number]) Hip Strength Hip Manual Muscle Testing Right Flexion (L2) 4 Good Extension (S1) 3 Fair Abduction 4- Good- External Rotation 4 Good Internal Rotation 4- Good- Left Flexion (L2) 4 Good Extension (S1) 3 Fair Abduction 4 Good External Rotation 4 Good Internal Rotation 4- Good- Knee Strength Knee Manual Muscle Testing Right Flexion (S2) 4 Good Extension (L3) 4- Good- Comments pain ext Left Flexion (S2) 4 Good Extension (L3) 5 Normal Ankle/Foot Strength Ankle and Foot Manual Muscle Testing Right Dorsiflexion (L4) 4+ Good+ Plantarflexion (S1) 5 Normal Inversion 4+ Good+ Eversion (S1) 4+ Good+ Comments some pain in knee w/heel raises Left Dorsiflexion (L4) 5 Normal Plantarflexion (S1) 5 Normal Inversion 5 Normal Eversion (S1) 5 Normal Comments 20 heel raises B Toe Strength Toe Manual Muscle Testing Right Flexion 5 Normal Extension 5 Normal Comments big toe and sm Left Flexion 5 Normal Extension 5 Normal Comments big toe and sm PT-OP-Q Treatments Start: 10/16/22 08:58 Freq: Status: Active Protocol: Document 12/17/22 18:24 [facility] (Rec: 12/17/22 18:32 [facility] [id number]) Therapeutic Exercises Sidelying Exercises basking seal Side right Reps/Minutes 12 Comments for pelvic dep Standing Exercises wt shifts Standing Exercise Name in mirrro w/cues for wt acceptance and alignment Side bilateral Reps/Minutes 10 ea Manual Therapy Treatment Soft Tissue Mobilization back Body Location R QL & ES & lumbopelvic fasica Mobilization Type Rolling,Sustained Pressure Intensity/Depth Moderate Body Position Sidelying Comments w/ pelvic patterns Joint Mobilizations lumbar Joint gapping L4-5; L5-S1 FM w/dep hip Comments supine on axis IR FM; s/l hip abd FM Self-Care/Home Management Treatment Education Other Education 13 min: pt brought in list of shoes and inserts she is interested in. Discussed improtance of shoe that has a back to support heel and have better walking pattern. Looked at insert options and edu on ones w/o hard plastic or other hard arch support, will not create support for arch. For shoes improtant to find what is most comfortable for her and educated on importance of good size toe box PT-OP-T Assessment and Plan Start: 10/16/22 08:58 Freq: Status: Active Protocol: Document 12/17/22 18:24 [facility] (Rec: 12/17/22 18:32 [facility] [id number]) Physical Therapy Assessment Goals ROM Short Term Goal (STG) Pt will be able to get DF to neutral in both knee ext and flex to improve gait and dec tension on plantar fascia and achilles. STG Duration achieved 12/01 Mill Tender Goal (LTG) Pt will be able to get DF to at least 5 deg in knee ext and 8 in flex to improve gait and dec tension on plantar fascia and achilles. LTG Duration 10 balance Short Term Goal (STG) Pt will do SLS for 10 sec on RLE to show improved balance STG Duration achieved Mill Tender Goal (LTG) Pt will be able to do SLS for at least 15 sec w/UEs at side and no lat lean/shear LTG Duration achieved 12/01 pain Mill Tender Goal (LTG) Pt will report no more than 2/ 10 pain in B knees or B foot for a week time period. 12/01-less of the burning in heel (95% better); pain still in evening charlene days she walked ; limited knee pain -occ twinges LTG Duration 01/13/23 movement Short Term Goal (STG) Pt will be able to self manage pain to give relief when gets pain during the day. 12/01-pt stretching, but does note still evening pain STG Duration 12/05/22 Prison Goal (LTG) Pt will be able go for walks w /o pain and w/o inc pain later after the walks when transitioning from sitting. LTG Duration 01/13/23 Assessment Summary Assessment W/gait, pt has very hard step onto RLE w/dec pelvic depression on R side (ant and post). This is likely d/t her LB restrictions along w/hip restrictions. Worked on some mobility of pelvis which did improve soem of the depression but pt does have difficulty w /wt acceptanec on RLE and encouraged to work on this. Physical Therapy Plan Frequency and Duration Frequency of Treatment 2x/Week Duration of treatment (weeks) 12 Plan of Care Start Date 10/21/22 Plan of Care End Date 01/13/23 Next Visit Focus/Plan Next Note Type Treatment Note Next Visit Plan work on R pelvic depression, Add further hip strengthening (sidesteps resisted, and SL flex isometric for core, gait at wall) as this affects pt gait mechanics, manual to plantar fascia and subtalar and midfoot to cont to improve moblity
--- NOTE | 2022-12-18 13:37 | PT.OTN ---
Current Diagnoses Tarsal tunnel syndrome, right lower limb (12/18/22) Flat foot [pes planus] (acquired), right foot (12/18/22) Pain in right knee (12/18/22) Pain in right foot (12/18/22) Pain in left foot (12/18/22) Difficulty in walking, not elsewhere classified (12/18/22) Unsteadiness on feet (12/18/22) Physical Therapy Treatment Note PT-OP-A Visit Information Start: 10/16/22 08:58 Freq: Status: Active Protocol: Document 12/18/22 12:49 [facility] (Rec: 12/18/22 13:37 [facility] [id number]) Out-Patient Physical Therapy Visit Information Visit Information Visit Type Treatment Note Visit Note 06/13 Visit Start Time 12:49 Visit Stop Time 13:35 Total Visit Minutes 41 Visit Number 12 Number of PRINCIPAL TECHNICAL WRITER Visits 0 PT-OP-B Current Condition Start: 10/16/22 08:58 Freq: Status: Active Protocol: Document 10/21/22 16:54 [facility] (Rec: 10/21/22 17:57 [facility] [id number]) Current Condition History of Current Condition Onset Date worse this spring (hx of some discomfort after long day) Current Complaints R heel pain & plantar foot pain & knee pain History of Current Condition Pt reports in June/July she started to get heel pain which progressed to burning med then lat. She started walking in May w/a friend then friend went on elena then when she came back and they started again and thats when the pain started. It hurts a littl ein the Am and once getting moving , it gets better then in the afternoon then she starts gettng the bruning sensation around the heel. She walks aroudn 4-530. She rests and then when she goes to get up, she has trouble getting up d/t pain and then after dinner, and she gets up to go to bed and it hurts to shift wt into foot and hard to put wt into foot. She has B knee pain. Her driveway is a bit of an incline so if she walks and then walks up/down the driveway then more sore the next am. THe L is starting to ache occ. She saw on September 03 and then her R knee was really swollen and it finally is getting better recently. She tried ice and heat. Heat didn't seem to help a lot. 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 She wants to go as long as she can to avoid knee replacement. She has a pacemaker d/t low HR and Afib. She thinks she has a lot of inflamation and notes her L arm swelled up. She went through tons of tests and PT thought lymphadema and she tried sleeves but they would irridate her skin so bad. Pt reports she has had stomach issues for a long time. She was on prilosec and got off that. She manages this with what she eats by inc salads etc. Describes stomach as touchy. Pt reports she has back pain when she wakes in the AM and she has trouble rolling at first but once she gets moving she is okay. Typically rare pain during the day except when really hard on it when doing gardening etc but it goes away quickly. Pt reports she initially thought it was d/t being overweight. She has a big varicose vein in post calf. She was reading about tarsal tunnel and saw taht varicose veins can be related. walking does seem to help R knee. Pt has some family members w/fibromyalgia and Lupus. Treatment Goals Patient/Caregiver Goals Be able to walk w/o pain, know what to do to help pain PT-OP-C Subjective Start: 10/16/22 08:58 Freq: Status: Active Protocol: Document 12/18/22 12:49 [facility] (Rec: 12/18/22 13:37 [facility] [id number]) OP-PT Subjective Patient Comments Patient Comments Pt reports she couldn't sleep last night and back was sore last night. PT-OP-D Balance Start: 10/16/22 08:58 Freq: Status: Active Protocol: Document 12/01/22 16:45 [facility] (Rec: 12/01/22 17:56 [facility] [id number]) Balance Tests Single Limb Standing Single Limb- Right 15 sec Single Limb- Left 18 sec PT-OP-F Manual Assessment Start: 10/16/22 08:58 Freq: Status: Active Protocol: Document 10/21/22 16:54 [facility] (Rec: 10/21/22 17:57 [facility] [id number]) Manual Assessments Soft Tissue Assessment Soft Tissue Mobility Assessment tender platnar fascia and inf heel Joint Mobility Assessment Joint Mobility Assessment B turned out, WB more on med heel, swelling more around malleoli R and calf, R rearfoot varus PT-OP-G Mobility & Gait Start: 10/16/22 08:58 Freq: Status: Active Protocol: Document 10/21/22 16:54 [facility] (Rec: 10/21/22 17:57 [facility] [id number]) OP Gait Assessment Comments Gait Comments lean lat over RLE during stance, doesn't push off w/RLE >L PT-OP-K Range of Motion Start: 10/16/22 08:58 Freq: Status: Active Protocol: Document 12/01/22 16:45 [facility] (Rec: 12/01/22 17:56 [facility] [id number]) Ankle and Foot Goniometric Range of Motion Ankle and Foot Right Active Dorsiflexion with Knee Flexed 3 Dorsiflexion with Knee Extended 1 Plantarflexion 55 Inversion 41 Eversion 22 Comments tugging in heel w/DF PT-OP-M Strength Start: 10/16/22 08:58 Freq: Status: Active Protocol: Document 10/21/22 16:54 [facility] (Rec: 10/21/22 17:57 [facility] [id number]) Hip Strength Hip Manual Muscle Testing Right Flexion (L2) 4 Good Extension (S1) 3 Fair Abduction 4- Good- External Rotation 4 Good Internal Rotation 4- Good- Left Flexion (L2) 4 Good Extension (S1) 3 Fair Abduction 4 Good External Rotation 4 Good Internal Rotation 4- Good- Knee Strength Knee Manual Muscle Testing Right Flexion (S2) 4 Good Extension (L3) 4- Good- Comments pain ext Left Flexion (S2) 4 Good Extension (L3) 5 Normal Ankle/Foot Strength Ankle and Foot Manual Muscle Testing Right Dorsiflexion (L4) 4+ Good+ Plantarflexion (S1) 5 Normal Inversion 4+ Good+ Eversion (S1) 4+ Good+ Comments some pain in knee w/heel raises Left Dorsiflexion (L4) 5 Normal Plantarflexion (S1) 5 Normal Inversion 5 Normal Eversion (S1) 5 Normal Comments 20 heel raises B Toe Strength Toe Manual Muscle Testing Right Flexion 5 Normal Extension 5 Normal Comments big toe and sm Left Flexion 5 Normal Extension 5 Normal Comments big toe and sm PT-OP-Q Treatments Start: 10/16/22 08:58 Freq: Status: Active Protocol: Document 12/18/22 12:49 [facility] (Rec: 12/18/22 13:37 [facility] [id number]) Gym Equipment Sport Cord fwd Cord/Resistance red Reps/Duration 10x Comments cues for push off-video used to work on this Therapeutic Exercises Sidelying Exercises basking seal Side right Reps/Minutes 10 Comments for pelvic dep Standing Exercises gait at wall Side bilateral Reps/Minutes 3 sec x6 wt shifts Standing Exercise Name in mirror w/cues for wt acceptance and alignment Side bilateral Reps/Minutes 10 ea Gait Training Gait Activity gait Description focus on push off x60ft resisted Device Used dowel Treatment Focus 50ft x2 Manual Therapy Treatment Soft Tissue Mobilization plantar fascia Body Location R medial Mobilization Type Rolling Intensity/Depth Moderate Body Position Supine Comments w/AAROM DF Joint Mobilizations calcaneus Joint distraction FM PT-OP-T Assessment and Plan Start: 10/16/22 08:58 Freq: Status: Active Protocol: Document 12/18/22 12:49 [facility] (Rec: 12/18/22 13:37 [facility] [id number]) Physical Therapy Assessment Goals ROM Short Term Goal (STG) Pt will be able to get DF to neutral in both knee ext and flex to improve gait and dec tension on plantar fascia and achilles. STG Duration achieved 12/01 Nursing Home Goal (LTG) Pt will be able to get DF to at least 5 deg in knee ext and 8 in flex to improve gait and dec tension on plantar fascia and achilles. LTG Duration 01/13 balance Short Term Goal (STG) Pt will do SLS for 10 sec on RLE to show improved balance STG Duration achieved School Business Manager Goal (LTG) Pt will be able to do SLS for at least 15 sec w/UEs at side and no lat lean/shear LTG Duration achieved 12/01 pain School Business Manager Goal (LTG) Pt will report no more than 2/ 10 pain in B knees or B foot for a week time period. 12/01-less of the burning in heel (95% better); pain still in evening charlene days she walked ; limited knee pain -occ twinges LTG Duration 01/13/23 movement Short Term Goal (STG) Pt will be able to self manage pain to give relief when gets pain during the day. 12/01-pt stretching, but does note still evening pain STG Duration 12/05/22 Nursing Home Goal (LTG) Pt will be able go for walks w /o pain and w/o inc pain later after the walks when transitioning from sitting. LTG Duration 01/13/23 Assessment Summary Assessment Pt had improved gait w/cues and work on push off. She needs a lot of cusing to dec stride length and focus on push off but no heel pain when doing this. Physical Therapy Plan Frequency and Duration Frequency of Treatment 2x/Week Duration of treatment (weeks) 12 Plan of Care Start Date 10/21/22 Plan of Care End Date 01/13/23 Therapeutic Interventions Therapeutic Interventions Balance Training,Gait Training ,Home Exercise Program,Joint Mobilizations,Manual Therapy, Neuromuscular Re-education, Orthotic/Prosthetic Management ,Patient/Caregiver Education, Self-Care/Home Management,Soft Tissue Mobilization,Taping, Therapeutic Activities, Therapeutic Exercises Modalities Cold Pack/Ice Massage,Hot Packs,Infrared Therapy, Iontophoresis,Ultrasound Next Visit Focus/Plan Next Note Type Treatment Note Next Visit Plan work on R pelvic depression, Add further hip strengthening (sidesteps resisted, and SL flex isometric for core, gait at wall) as this affects pt gait mechanics, manual to plantar fascia and subtalar and midfoot to cont to improve moblity
--- NOTE | 2022-12-22 13:16 | PT.OTN ---
Current Diagnoses Tarsal tunnel syndrome, right lower limb (12/22/22) Flat foot [pes planus] (acquired), right foot (12/22/22) Pain in right knee (12/22/22) Pain in right foot (12/22/22) Pain in left foot (12/22/22) Difficulty in walking, not elsewhere classified (12/22/22) Unsteadiness on feet (12/22/22) Physical Therapy Treatment Note PT-OP-A Visit Information Start: 10/16/22 08:58 Freq: Status: Active Protocol: Document 12/22/22 12:20 [facility] (Rec: 12/22/22 13:15 [facility] [id number]) Out-Patient Physical Therapy Visit Information Visit Information Visit Type Treatment Note Visit Note 07/14 Visit Start Time 12:20 Visit Stop Time 13:08 Total Visit Minutes 48 Visit Number 13 Number of GRADES 9 THRU 12 VISITING TEACHER Visits 1 PT-OP-B Current Condition Start: 10/16/22 08:58 Freq: Status: Active Protocol: Document 10/21/22 16:54 [facility] (Rec: 10/21/22 17:57 [facility] [id number]) Current Condition History of Current Condition Onset Date worse this spring (hx of some discomfort after long day) Current Complaints R heel pain & plantar foot pain & knee pain History of Current Condition Pt reports in June/July she started to get heel pain which progressed to burning med then lat. She started walking in May w/a friend then friend went on [place] then when she came back and they started again and thats when the pain started. It hurts a littl ein the Am and once getting moving , it gets better then in the afternoon then she starts gettng the bruning sensation around the heel. She walks aroudn 4-530. She rests and then when she goes to get up, she has trouble getting up d/t pain and then after dinner, and she gets up to go to bed and it hurts to shift wt into foot and hard to put wt into foot. She has B knee pain. Her driveway is a bit of an incline so if she walks and then walks up/down the driveway then more sore the next am. THe L is starting to ache occ. She saw on September 03 and then her R knee was really swollen and it finally is getting better recently. She tried ice and heat. Heat didn't seem to help a lot. Pt reports CAREER CONSULTANT told her she has R knee arthritis. She wants to go as long as she can to avoid knee replacement. She has a pacemaker d/t low HR and Afib. She thinks she has a lot of inflamation and notes her L arm swelled up. She went through tons of tests and PT thought lymphadema and she tried sleeves but they would irridate her skin so bad. Pt reports she has had stomach issues for a long time. She was on prilosec and got off that. She manages this with what she eats by inc salads etc. Describes stomach as touchy. Pt reports she has back pain when she wakes in the AM and she has trouble rolling at first but once she gets moving she is okay. Typically rare pain during the day except when really hard on it when doing gardening etc but it goes away quickly. Pt reports she initially thought it was d/t being overweight. She has a big varicose vein in post calf. She was reading about tarsal tunnel and saw taht varicose veins can be related. walking does seem to help R knee. Pt has some family members w/fibromyalgia and Lupus. Treatment Goals Patient/Caregiver Goals Be able to walk w/o pain, know what to do to help pain PT-OP-C Subjective Start: 10/16/22 08:58 Freq: Status: Active Protocol: Document 12/22/22 12:20 [facility] (Rec: 12/22/22 13:15 [facility] [id number]) OP-PT Subjective Patient Comments Patient Comments Pt reports she's walking more and thinks that overall maybe it's getting a little better, but it's hard to tell. After working her foot hurts during rest breaks and later that day . Her walking partner has been in pain so they have not been walking as much. It hurts when she goes from sitting to standing before bedtime and she stretches and is trying ABC's before standing up. She bought an orthotic and is using it and thinks it really helps. PT-OP-D Balance Start: 10/16/22 08:58 Freq: Status: Active Protocol: Document 12/01/22 16:45 [facility] (Rec: 12/01/22 17:56 [facility] [id number]) Balance Tests Single Limb Standing Single Limb- Right 15 sec Single Limb- Left 18 sec PT-OP-F Manual Assessment Start: 10/16/22 08:58 Freq: Status: Active Protocol: Document 10/21/22 16:54 [facility] (Rec: 10/21/22 17:57 [facility] [id number]) Manual Assessments Soft Tissue Assessment Soft Tissue Mobility Assessment tender platnar fascia and inf heel Joint Mobility Assessment Joint Mobility Assessment B turned out, WB more on med heel, swelling more around malleoli R and calf, R rearfoot varus PT-OP-G Mobility & Gait Start: 10/16/22 08:58 Freq: Status: Active Protocol: Document 10/21/22 16:54 [facility] (Rec: 10/21/22 17:57 [facility] [id number]) OP Gait Assessment Comments Gait Comments lean lat over RLE during stance, doesn't push off w/RLE >L PT-OP-K Range of Motion Start: 10/16/22 08:58 Freq: Status: Active Protocol: Document 12/01/22 16:45 [facility] (Rec: 12/01/22 17:56 [facility] [id number]) Ankle and Foot Goniometric Range of Motion Ankle and Foot Right Active Dorsiflexion with Knee Flexed 3 Dorsiflexion with Knee Extended 1 Plantarflexion 55 Inversion 41 Eversion 22 Comments tugging in heel w/DF PT-OP-M Strength Start: 10/16/22 08:58 Freq: Status: Active Protocol: Document 10/21/22 16:54 [facility] (Rec: 10/21/22 17:57 [facility] [id number]) Hip Strength Hip Manual Muscle Testing Right Flexion (L2) 4 Good Extension (S1) 3 Fair Abduction 4- Good- External Rotation 4 Good Internal Rotation 4- Good- Left Flexion (L2) 4 Good Extension (S1) 3 Fair Abduction 4 Good External Rotation 4 Good Internal Rotation 4- Good- Knee Strength Knee Manual Muscle Testing Right Flexion (S2) 4 Good Extension (L3) 4- Good- Comments pain ext Left Flexion (S2) 4 Good Extension (L3) 5 Normal Ankle/Foot Strength Ankle and Foot Manual Muscle Testing Right Dorsiflexion (L4) 4+ Good+ Plantarflexion (S1) 5 Normal Inversion 4+ Good+ Eversion (S1) 4+ Good+ Comments some pain in knee w/heel raises Left Dorsiflexion (L4) 5 Normal Plantarflexion (S1) 5 Normal Inversion 5 Normal Eversion (S1) 5 Normal Comments 20 heel raises B Toe Strength Toe Manual Muscle Testing Right Flexion 5 Normal Extension 5 Normal Comments big toe and sm Left Flexion 5 Normal Extension 5 Normal Comments big toe and sm PT-OP-Q Treatments Start: 10/16/22 08:58 Freq: Status: Active Protocol: Document 12/22/22 12:20 [facility] (Rec: 12/22/22 13:15 [facility] [id number]) Gym Equipment Sport Cord fwd Exercise Details fwd/bwd w/ mirror Cord/Resistance red Reps/Duration 10x Comments cues for push off Therapeutic Exercises Standing Exercises calf stretch Standing Exercise Name fwd lean at wall: 1.gastroc 2. soleus 3. hip flexor B Side bilateral Reps/Minutes 1 min hold (breath cycles) Comments cues for foot neutral, hip width, pain-free range Gait Training Gait Activity gait Description focus on push off indoors/ outdoors Device Used 1lb weights to improve arm swing Level of Assistance SBA Surface carpet, tile, cement, grass, stairs, gravel Treatment Focus push-off, arm swing Comments improves push-off Manual Therapy Treatment Soft Tissue Mobilization plantar fascia Body Location R medial Mobilization Type Rolling Intensity/Depth Moderate Body Position Supine Comments w/AAROM DF calf Body Location R achilles t and insertion focus Mobilization Type Myofascial Release,Sustained Pressure Intensity/Depth Moderate Body Position Supine Comments w/AAROM DF PT-OP-R Modalities Start: 10/16/22 08:58 Freq: Status: Active Protocol: Document 12/22/22 12:20 [facility] (Rec: 12/22/22 13:15 [facility] [id number]) Hot Pack/Cold Pack Treatment Ice Massage Location R heel Patient Position Hooklying Treatment Duration (minutes) 5 Patient Tolerance Good Comments Achilles tendon and insertion focus PT-OP-T Assessment and Plan Start: 10/16/22 08:58 Freq: Status: Active Protocol: Document 12/22/22 12:20 [facility] (Rec: 12/22/22 13:15 [facility] [id number]) Physical Therapy Assessment Goals ROM Short Term Goal (STG) Pt will be able to get DF to neutral in both knee ext and flex to improve gait and dec tension on plantar fascia and achilles. STG Duration achieved 12/01 Group Home Goal (LTG) Pt will be able to get DF to at least 5 deg in knee ext and 8 in flex to improve gait and dec tension on plantar fascia and achilles. LTG Duration 01/13 balance Short Term Goal (STG) Pt will do SLS for 10 sec on RLE to show improved balance STG Duration achieved Group Home Goal (LTG) Pt will be able to do SLS for at least 15 sec w/UEs at side and no lat lean/shear LTG Duration achieved 12/01 pain Chiller Technician Goal (LTG) Pt will report no more than 2/ 10 pain in B knees or B foot for a week time period. 12/01-less of the burning in heel (95% better); pain still in evening charlene days she walked ; limited knee pain -occ twinges LTG Duration 01/13/23 movement Short Term Goal (STG) Pt will be able to self manage pain to give relief when gets pain during the day. 12/01-pt stretching, but does note still evening pain STG Duration 12/05/22 Group Home Goal (LTG) Pt will be able go for walks w /o pain and w/o inc pain later after the walks when transitioning from sitting. LTG Duration 01/13/23 Assessment Summary Assessment Pt encouraged to use plantar fascia stretch after walks and before standing and cued for form. She requires cues for push-off with gait which improves with repetition and cueing. Positive feedback response to ice cup massage w/ R achilles t. and insertion focus end of session. Physical Therapy Plan Frequency and Duration Frequency of Treatment 2x/Week Duration of treatment (weeks) 12 Plan of Care Start Date 10/21/22 Plan of Care End Date 01/13/23 Therapeutic Interventions Therapeutic Interventions Balance Training,Gait Training ,Home Exercise Program,Joint Mobilizations,Manual Therapy, Neuromuscular Re-education, Orthotic/Prosthetic Management ,Patient/Caregiver Education, Self-Care/Home Management,Soft Tissue Mobilization,Taping, Therapeutic Activities, Therapeutic Exercises Modalities Cold Pack/Ice Massage,Hot Packs,Infrared Therapy, Iontophoresis,Ultrasound Next Visit Focus/Plan Next Note Type Treatment Note Next Visit Plan work on R pelvic depression, Add further hip strengthening (sidesteps resisted, and SL flex isometric for core, gait at wall) as this affects pt gait mechanics, manual to plantar fascia and subtalar and midfoot to cont to improve moblity
--- NOTE | 2022-12-24 15:28 | PT.OTN ---
Current Diagnoses Tarsal tunnel syndrome, right lower limb (12/24/22) Flat foot [pes planus] (acquired), right foot (12/24/22) Pain in right knee (12/24/22) Pain in right foot (12/24/22) Pain in left foot (12/24/22) Difficulty in walking, not elsewhere classified (12/24/22) Unsteadiness on feet (12/24/22) Physical Therapy Treatment Note PT-OP-A Visit Information Start: 10/16/22 08:58 Freq: Status: Active Protocol: Document 12/24/22 11:58 [facility] (Rec: 12/24/22 15:28 [facility] [id number]) Out-Patient Physical Therapy Visit Information Visit Information Visit Type Treatment Note Visit Note 08/13 Visit Start Time 12:47 Visit Stop Time 13:46 Total Visit Minutes 59 Visit Number 14 Number of SOCIAL RESEARCH ASSISTANT Visits 0 PT-OP-B Current Condition Start: 10/16/22 08:58 Freq: Status: Active Protocol: Document 10/21/22 16:54 [facility] (Rec: 10/21/22 17:57 [facility] [id number]) Current Condition History of Current Condition Onset Date worse this spring (hx of some discomfort after long day) Current Complaints R heel pain & plantar foot pain & knee pain History of Current Condition Pt reports in she started to get heel pain which progressed to burning med then lat. She started walking in May w/a friend then friend went on elena then when she came back and they started again and thats when the pain started. It hurts a littl ein the Am and once getting moving , it gets better then in the afternoon then she starts gettng the bruning sensation around the heel. She walks aroudn 4-530. She rests and then when she goes to get up, she has trouble getting up d/t pain and then after dinner, and she gets up to go to bed and it hurts to shift wt into foot and hard to put wt into foot. She has B knee pain. Her driveway is a bit of an incline so if she walks and then walks up/down the driveway then more sore the next am. THe L is starting to ache occ. She saw on September 03 and then her R knee was really swollen and it finally is getting better recently. She tried ice and heat. Heat didn't seem to help a lot. Pt reports DIPPER FISH told her she has R knee arthritis. She wants to go as long as she can to avoid knee replacement. She has a pacemaker d/t low HR and Afib. She thinks she has a lot of inflamation and notes her L arm swelled up. She went through tons of tests and PT thought lymphadema and she tried sleeves but they would irridate her skin so bad. Pt reports she has had stomach issues for a long time. She was on prilosec and got off that. She manages this with what she eats by inc salads etc. Describes stomach as touchy. Pt reports she has back pain when she wakes in the AM and she has trouble rolling at first but once she gets moving she is okay. Typically rare pain during the day except when really hard on it when doing gardening etc but it goes away quickly. Pt reports she initially thought it was d/t being overweight. She has a big varicose vein in post calf. She was reading about tarsal tunnel and saw taht varicose veins can be related. walking does seem to help R knee. Pt has some family members w/fibromyalgia and Lupus. Treatment Goals Patient/Caregiver Goals Be able to walk w/o pain, know what to do to help pain PT-OP-C Subjective Start: 10/16/22 08:58 Freq: Status: Active Protocol: Document 12/24/22 11:58 [facility] (Rec: 12/24/22 15:28 [facility] [id number]) OP-PT Subjective Patient Comments Patient Comments Pt has been stretching w/ active DF and toe DF and that helps when she is getting up after prolonged sitting and that helps. Has walked the last couple days. Foot is sore after the walk like it is bruised at the heel. The stretch doesn't help all that much. Yesterday, she waterd her plants for an hour after and the L foot neuroma was bothering her that day after. PT-OP-D Balance Start: 10/16/22 08:58 Freq: Status: Active Protocol: Document 12/01/22 16:45 [facility] (Rec: 12/01/22 17:56 [facility] [id number]) Balance Tests Single Limb Standing Single Limb- Right 15 sec Single Limb- Left 18 sec PT-OP-F Manual Assessment Start: 10/16/22 08:58 Freq: Status: Active Protocol: Document 10/21/22 16:54 [facility] (Rec: 10/21/22 17:57 [facility] [id number]) Manual Assessments Soft Tissue Assessment Soft Tissue Mobility Assessment tender platnar fascia and inf heel Joint Mobility Assessment Joint Mobility Assessment B turned out, WB more on med heel, swelling more around malleoli R and calf, R rearfoot varus PT-OP-G Mobility & Gait Start: 10/16/22 08:58 Freq: Status: Active Protocol: Document 10/21/22 16:54 [facility] (Rec: 10/21/22 17:57 [facility] [id number]) OP Gait Assessment Comments Gait Comments lean lat over RLE during stance, doesn't push off w/RLE >L PT-OP-K Range of Motion Start: 10/16/22 08:58 Freq: Status: Active Protocol: Document 12/01/22 16:45 [facility] (Rec: 12/01/22 17:56 [facility] [id number]) Ankle and Foot Goniometric Range of Motion Ankle and Foot Right Active Dorsiflexion with Knee Flexed 3 Dorsiflexion with Knee Extended 1 Plantarflexion 55 Inversion 41 Eversion 22 Comments tugging in heel w/DF PT-OP-M Strength Start: 10/16/22 08:58 Freq: Status: Active Protocol: Document 10/21/22 16:54 [facility] (Rec: 10/21/22 17:57 [facility] [id number]) Hip Strength Hip Manual Muscle Testing Right Flexion (L2) 4 Good Extension (S1) 3 Fair Abduction 4- Good- External Rotation 4 Good Internal Rotation 4- Good- Left Flexion (L2) 4 Good Extension (S1) 3 Fair Abduction 4 Good External Rotation 4 Good Internal Rotation 4- Good- Knee Strength Knee Manual Muscle Testing Right Flexion (S2) 4 Good Extension (L3) 4- Good- Comments pain ext Left Flexion (S2) 4 Good Extension (L3) 5 Normal Ankle/Foot Strength Ankle and Foot Manual Muscle Testing Right Dorsiflexion (L4) 4+ Good+ Plantarflexion (S1) 5 Normal Inversion 4+ Good+ Eversion (S1) 4+ Good+ Comments some pain in knee w/heel raises Left Dorsiflexion (L4) 5 Normal Plantarflexion (S1) 5 Normal Inversion 5 Normal Eversion (S1) 5 Normal Comments 20 heel raises B Toe Strength Toe Manual Muscle Testing Right Flexion 5 Normal Extension 5 Normal Comments big toe and sm Left Flexion 5 Normal Extension 5 Normal Comments big toe and sm PT-OP-Q Treatments Start: 10/16/22 08:58 Freq: Status: Active Protocol: Document 12/24/22 11:58 [facility] (Rec: 12/24/22 15:28 [facility] [id number]) Gym Equipment Sport Cord fwd Cord/Resistance red Reps/Duration 10x Comments cues for push off and shorter stride Therapeutic Exercises Standing Exercises hip hikes Standing Exercise Name focus on limited QL activaition and more GM and obliques Side bilateral Equipment Used step w/rail Reps/Minutes 15 ea Comments hip drop and pull up gait at wall Side right Reps/Minutes 5 sec x6 Comments cues needed Gait Training Gait Activity gait Description focus on push off x60ft resisted Device Used dowel Treatment Focus 50ft x2 Manual Therapy Treatment Soft Tissue Mobilization calf Body Location R proximal gastroc Mobilization Type Myofascial Release,Sustained Pressure Intensity/Depth Moderate Body Position Supine Comments w/AAROM DF and quad set Joint Mobilizations tibfem Comments AP tibia and femur FM tib fib Comments distal sup FM calcaneus Joint distraction FM PT-OP-R Modalities Start: 10/16/22 08:58 Freq: Status: Active Protocol: Document 12/24/22 11:58 [facility] (Rec: 12/24/22 15:28 [facility] [id number]) Hot Pack/Cold Pack Treatment Cold Pack Location lumbar and R heel Patient Position Hooklying Treatment Duration (minutes) 15 PT-OP-T Assessment and Plan Start: 10/16/22 08:58 Freq: Status: Active Protocol: Document 12/24/22 11:58 [facility] (Rec: 12/24/22 15:28 [facility] [id number]) Physical Therapy Assessment Goals ROM Short Term Goal (STG) Pt will be able to get DF to neutral in both knee ext and flex to improve gait and dec tension on plantar fascia and achilles. STG Duration achieved 12/01 Manager Science Goal (LTG) Pt will be able to get DF to at least 5 deg in knee ext and 8 in flex to improve gait and dec tension on plantar fascia and achilles. LTG Duration 01/13 balance Short Term Goal (STG) Pt will do SLS for 10 sec on RLE to show improved balance STG Duration achieved Manager Science Goal (LTG) Pt will be able to do SLS for at least 15 sec w/UEs at side and no lat lean/shear LTG Duration achieved 12/01 pain Penitentiary Goal (LTG) Pt will report no more than 2/ 10 pain in B knees or B foot for a week time period. 12/01-less of the burning in heel (95% better); pain still in evening charlene days she walked ; limited knee pain -occ twinges LTG Duration 01/13/23 movement Short Term Goal (STG) Pt will be able to self manage pain to give relief when gets pain during the day. 12/01-pt stretching, but does note still evening pain STG Duration 12/05/22 Penitentiary Goal (LTG) Pt will be able go for walks w /o pain and w/o inc pain later after the walks when transitioning from sitting. LTG Duration 01/13/23 Assessment Summary Assessment Pt ahd pain w/knee ext w/gait at wall and this was imrpoved w/manual which alllowed pt to imrpove her push off position w/o pain. She cont to require cues to push off rather than use hip flexors to take large step and come down on heel hard. Physical Therapy Plan Frequency and Duration Frequency of Treatment 2x/Week Duration of treatment (weeks) 12 Plan of Care Start Date 10/21/22 Plan of Care End Date 01/13/23 Next Visit Focus/Plan Next Note Type Treatment Note Next Visit Plan cont to work on gait mechanics and improve hip stability for gait; manual to foot for improved positioning
--- NOTE | 2022-12-29 12:40 | PT-OP ANOTE ---
S/w Pranay who was on her way to PT thinking her appt was 12:45p instead of 12:15p. Pt apologizes and agrees to reschedule appt to tomorrow 12/30 at 11:30a with this ANALYSIS DIRECTOR. She requests to cancel Tuesday 01/02 appt as she would like to reduce visits to once weekly. desk representative scheduling notified.
--- NOTE | 2022-12-30 13:25 | PT.OTN ---
Current Diagnoses Tarsal tunnel syndrome, right lower limb (12/30/22) Flat foot [pes planus] (acquired), right foot (12/30/22) Pain in right knee (12/30/22) Pain in right foot (12/30/22) Pain in left foot (12/30/22) Difficulty in walking, not elsewhere classified (12/30/22) Unsteadiness on feet (12/30/22) Physical Therapy Treatment Note PT-OP-A Visit Information Start: 10/16/22 08:58 Freq: Status: Active Protocol: Document 12/30/22 11:33 [facility] (Rec: 12/30/22 13:10 [facility] [id number]) Out-Patient Physical Therapy Visit Information Visit Information Visit Type Treatment Note Visit Note 09/13 Visit Start Time 11:33 Visit Stop Time 12:11 Total Visit Minutes 38 Visit Number 15 Number of SMOKE CHASER Visits 1 PT-OP-B Current Condition Start: 10/16/22 08:58 Freq: Status: Active Protocol: Document 10/21/22 16:54 [facility] (Rec: 10/21/22 17:57 [facility] [id number]) Current Condition History of Current Condition Onset Date worse this spring (hx of some discomfort after long day) Current Complaints R heel pain & plantar foot pain & knee pain History of Current Condition Pt reports in June/July she started to get heel pain which progressed to burning med then lat. She started walking in May w/a friend then friend went on [place] then when she came back and they started again and thats when the pain started. It hurts a littl ein the Am and once getting moving , it gets better then in the afternoon then she starts gettng the bruning sensation around the heel. She walks aroudn 4-530. She rests and then when she goes to get up, she has trouble getting up d/t pain and then after dinner, and she gets up to go to bed and it hurts to shift wt into foot and hard to put wt into foot. She has B knee pain. Her driveway is a bit of an incline so if she walks and then walks up/down the driveway then more sore the next am. THe L is starting to ache occ. She saw on September 03 and then her R knee was really swollen and it finally is getting better recently. She tried ice and heat. Heat didn't seem to help a lot. 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 She wants to go as long as she can to avoid knee replacement. She has a pacemaker d/t low HR and Afib. She thinks she has a lot of inflamation and notes her L arm swelled up. She went through tons of tests and PT thought lymphadema and she tried sleeves but they would irridate her skin so bad. Pt reports she has had stomach issues for a long time. She was on prilosec and got off that. She manages this with what she eats by inc salads etc. Describes stomach as touchy. Pt reports she has back pain when she wakes in the AM and she has trouble rolling at first but once she gets moving she is okay. Typically rare pain during the day except when really hard on it when doing gardening etc but it goes away quickly. Pt reports she initially thought it was d/t being overweight. She has a big varicose vein in post calf. She was reading about tarsal tunnel and saw taht varicose veins can be related. walking does seem to help R knee. Pt has some family members w/fibromyalgia and Lupus. Treatment Goals Patient/Caregiver Goals Be able to walk w/o pain, know what to do to help pain PT-OP-C Subjective Start: 10/16/22 08:58 Freq: Status: Active Protocol: Document 12/30/22 11:33 [facility] (Rec: 12/30/22 13:10 [facility] [id number]) OP-PT Subjective Patient Comments Patient Comments Pt reports pain 0/10 right now . She did a lot of activity yesterday until sitting at 9: 30p at night and she did ex's and stretches. I didn't ignore it. It was sore as soon as she woke up but it got better once she was up and using it. PT-OP-D Balance Start: 10/16/22 08:58 Freq: Status: Active Protocol: Document 12/01/22 16:45 [facility] (Rec: 12/01/22 17:56 [facility] [id number]) Balance Tests Single Limb Standing Single Limb- Right 15 sec Single Limb- Left 18 sec PT-OP-F Manual Assessment Start: 10/16/22 08:58 Freq: Status: Active Protocol: Document 10/21/22 16:54 [facility] (Rec: 10/21/22 17:57 [facility] [id number]) Manual Assessments Soft Tissue Assessment Soft Tissue Mobility Assessment tender platnar fascia and inf heel Joint Mobility Assessment Joint Mobility Assessment B turned out, WB more on med heel, swelling more around malleoli R and calf, R rearfoot varus PT-OP-G Mobility & Gait Start: 10/16/22 08:58 Freq: Status: Active Protocol: Document 10/21/22 16:54 [facility] (Rec: 10/21/22 17:57 [facility] [id number]) OP Gait Assessment Comments Gait Comments lean lat over RLE during stance, doesn't push off w/RLE >L PT-OP-K Range of Motion Start: 10/16/22 08:58 Freq: Status: Active Protocol: Document 12/01/22 16:45 [facility] (Rec: 12/01/22 17:56 [facility] [id number]) Ankle and Foot Goniometric Range of Motion Ankle and Foot Right Active Dorsiflexion with Knee Flexed 3 Dorsiflexion with Knee Extended 1 Plantarflexion 55 Inversion 41 Eversion 22 Comments tugging in heel w/DF PT-OP-M Strength Start: 10/16/22 08:58 Freq: Status: Active Protocol: Document 10/21/22 16:54 [facility] (Rec: 10/21/22 17:57 [facility] [id number]) Hip Strength Hip Manual Muscle Testing Right Flexion (L2) 4 Good Extension (S1) 3 Fair Abduction 4- Good- External Rotation 4 Good Internal Rotation 4- Good- Left Flexion (L2) 4 Good Extension (S1) 3 Fair Abduction 4 Good External Rotation 4 Good Internal Rotation 4- Good- Knee Strength Knee Manual Muscle Testing Right Flexion (S2) 4 Good Extension (L3) 4- Good- Comments pain ext Left Flexion (S2) 4 Good Extension (L3) 5 Normal Ankle/Foot Strength Ankle and Foot Manual Muscle Testing Right Dorsiflexion (L4) 4+ Good+ Plantarflexion (S1) 5 Normal Inversion 4+ Good+ Eversion (S1) 4+ Good+ Comments some pain in knee w/heel raises Left Dorsiflexion (L4) 5 Normal Plantarflexion (S1) 5 Normal Inversion 5 Normal Eversion (S1) 5 Normal Comments 20 heel raises B Toe Strength Toe Manual Muscle Testing Right Flexion 5 Normal Extension 5 Normal Comments big toe and sm Left Flexion 5 Normal Extension 5 Normal Comments big toe and sm PT-OP-Q Treatments Start: 10/16/22 08:58 Freq: Status: Active Protocol: Document 12/30/22 11:33 [facility] (Rec: 12/30/22 13:10 [facility] [id number]) Gym Equipment Sport Cord fwd Exercise Details 1. fwd amb 2. step up w/ high knee hold Cord/Resistance red Reps/Duration 10x Comments cues for push off and shorter stride. RESIDENT CARE MANAGER RN prn but pt encouraged no RESIDENT CARE MANAGER RN to improve LE engagement for uright posture. Therapeutic Exercises Standing Exercises hip hikes Standing Exercise Name focus on limited QL activaition and more GM and obliques Side bilateral Equipment Used step w/rail Reps/Minutes 15 ea Comments hip drop and pull up gait at wall Side bilateral Reps/Minutes 5 sec x6 Comments cues needed, R knee pinch in R stance x1 calf stretch Standing Exercise Name fwd lean at wall: 1.gastroc 2. soleus Side bilateral Reps/Minutes 1 min hold (breath cycles) Comments cues for foot neutral, hip width, pain-free range Manual Therapy Treatment Soft Tissue Mobilization plantar fascia Body Location R medial Mobilization Type Rolling Intensity/Depth Moderate Body Position Supine Comments w/AAROM DF calf Body Location R proximal gastroc Mobilization Type Myofascial Release,Sustained Pressure Intensity/Depth Moderate Body Position Supine Comments w/AAROM DF PT-OP-R Modalities Start: 10/16/22 08:58 Freq: Status: Active Protocol: Document 12/24/22 11:58 [facility] (Rec: 12/24/22 15:28 [facility] [id number]) Hot Pack/Cold Pack Treatment Cold Pack Location lumbar and R heel Patient Position Hooklying Treatment Duration (minutes) 15 PT-OP-T Assessment and Plan Start: 10/16/22 08:58 Freq: Status: Active Protocol: Document 12/30/22 11:33 [facility] (Rec: 12/30/22 13:10 [facility] [id number]) Physical Therapy Assessment Goals ROM Short Term Goal (STG) Pt will be able to get DF to neutral in both knee ext and flex to improve gait and dec tension on plantar fascia and achilles. STG Duration achieved 12/01 Hadoop Architect Goal (LTG) Pt will be able to get DF to at least 5 deg in knee ext and 8 in flex to improve gait and dec tension on plantar fascia and achilles. LTG Duration 01/13 balance Short Term Goal (STG) Pt will do SLS for 10 sec on RLE to show improved balance STG Duration achieved Hadoop Architect Goal (LTG) Pt will be able to do SLS for at least 15 sec w/UEs at side and no lat lean/shear LTG Duration achieved 12/01 pain Hadoop Architect Goal (LTG) Pt will report no more than 2/ 10 pain in B knees or B foot for a week time period. 12/01-less of the burning in heel (95% better); pain still in evening charlene days she walked ; limited knee pain -occ twinges LTG Duration 01/13/23 movement Short Term Goal (STG) Pt will be able to self manage pain to give relief when gets pain during the day. 12/01-pt stretching, but does note still evening pain STG Duration 12/05/22 Halfway Goal (LTG) Pt will be able go for walks w /o pain and w/o inc pain later after the walks when transitioning from sitting. LTG Duration 01/13/23 Assessment Summary Assessment Pranay requires cues for gluteal engagement using sports cord with fwd ambulation and step ups w/ high knee 1s hold; when using RESIDENT CARE MANAGER RN for balance she was more challenged with LE engagement which improved when cued for no RESIDENT CARE MANAGER RN. Physical Therapy Plan Frequency and Duration Frequency of Treatment 2x/Week Duration of treatment (weeks) 12 Plan of Care Start Date 10/21/22 Plan of Care End Date 01/13/23 Therapeutic Interventions Therapeutic Interventions Balance Training,Gait Training ,Home Exercise Program,Joint Mobilizations,Manual Therapy, Neuromuscular Re-education, Orthotic/Prosthetic Management ,Patient/Caregiver Education, Self-Care/Home Management,Soft Tissue Mobilization,Taping, Therapeutic Activities, Therapeutic Exercises Modalities Cold Pack/Ice Massage,Hot Packs,Infrared Therapy, Iontophoresis,Ultrasound Next Visit Focus/Plan Next Note Type Treatment Note Next Visit Plan cont to work on gait mechanics and improve hip stability for gait; manual to foot for improved positioning
--- NOTE | 2023-01-05 16:01 | PT.OTN ---
Current Diagnoses Tarsal tunnel syndrome, right lower limb (01/05/23) Flat foot [pes planus] (acquired), right foot (01/05/23) Pain in right knee (01/05/23) Pain in right foot (01/05/23) Pain in left foot (01/05/23) Difficulty in walking, not elsewhere classified (01/05/23) Unsteadiness on feet (01/05/23) Physical Therapy Treatment Note PT-OP-A Visit Information Start: 10/16/22 08:58 Freq: Status: Active Protocol: Document 01/05/23 14:18 [facility] (Rec: 01/05/23 16:01 [facility] [id number]) Out-Patient Physical Therapy Visit Information Visit Information Visit Type Progress Note Visit Note 04/15 Visit Start Time 14:20 Visit Stop Time 15:00 Total Visit Minutes 40 Visit Number 16 Number of SUSPECT ARTIST Visits 0 PT-OP-B Current Condition Start: 10/16/22 08:58 Freq: Status: Active Protocol: Document 10/21/22 16:54 [facility] (Rec: 10/21/22 17:57 [facility] [id number]) Current Condition History of Current Condition Onset Date worse this spring (hx of some discomfort after long day) Current Complaints R heel pain & plantar foot pain & knee pain History of Current Condition Pt reports in June/July she started to get heel pain which progressed to burning med then lat. She started walking in May w/a friend then friend went on elena then when she came back and they started again and thats when the pain started. It hurts a littl ein the Am and once getting moving , it gets better then in the afternoon then she starts gettng the bruning sensation around the heel. She walks aroudn 4-530. She rests and then when she goes to get up, she has trouble getting up d/t pain and then after dinner, and she gets up to go to bed and it hurts to shift wt into foot and hard to put wt into foot. She has B knee pain. Her driveway is a bit of an incline so if she walks and then walks up/down the driveway then more sore the next am. THe L is starting to ache occ. She saw on September 03 and then her R knee was really swollen and it finally is getting better recently. She tried ice and heat. Heat didn't seem to help a lot. 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 She wants to go as long as she can to avoid knee replacement. She has a pacemaker d/t low HR and Afib. She thinks she has a lot of inflamation and notes her L arm swelled up. She went through tons of tests and PT thought lymphadema and she tried sleeves but they would irridate her skin so bad. Pt reports she has had stomach issues for a long time. She was on prilosec and got off that. She manages this with what she eats by inc salads etc. Describes stomach as touchy. Pt reports she has back pain when she wakes in the AM and she has trouble rolling at first but once she gets moving she is okay. Typically rare pain during the day except when really hard on it when doing gardening etc but it goes away quickly. Pt reports she initially thought it was d/t being overweight. She has a big varicose vein in post calf. She was reading about tarsal tunnel and saw taht varicose veins can be related. walking does seem to help R knee. Pt has some family members w/fibromyalgia and Lupus. Treatment Goals Patient/Caregiver Goals Be able to walk w/o pain, know what to do to help pain PT-OP-C Subjective Start: 10/16/22 08:58 Freq: Status: Active Protocol: Document 01/05/23 14:18 [facility] (Rec: 01/05/23 16:01 [facility] [id number]) OP-PT Subjective Patient Comments Patient Comments Pt was hemming her jeans yesterday and her iron was heavy and her R elbow as very painful. She can't lift anything. Pt reports her heel has been better. She went for a walk with her dgt and she kept moving and she stretched that night and she was moving it in the recliner. She got up to to bed and was okay. She has had some mornings that have felt okay. She has been able relieve her pain more w/ stretches Patient Reported Progress Improving PT-OP-D Balance Start: 10/16/22 08:58 Freq: Status: Active Protocol: Document 12/01/22 16:45 [facility] (Rec: 12/01/22 17:56 [facility] [id number]) Balance Tests Single Limb Standing Single Limb- Right 15 sec Single Limb- Left 18 sec PT-OP-F Manual Assessment Start: 10/16/22 08:58 Freq: Status: Active Protocol: Document 10/21/22 16:54 [facility] (Rec: 10/21/22 17:57 [facility] [id number]) Manual Assessments Soft Tissue Assessment Soft Tissue Mobility Assessment tender platnar fascia and inf heel Joint Mobility Assessment Joint Mobility Assessment B turned out, WB more on med heel, swelling more around malleoli R and calf, R rearfoot varus PT-OP-G Mobility & Gait Start: 10/16/22 08:58 Freq: Status: Active Protocol: Document 10/21/22 16:54 [facility] (Rec: 10/21/22 17:57 [facility] [id number]) OP Gait Assessment Comments Gait Comments lean lat over RLE during stance, doesn't push off w/RLE >L PT-OP-K Range of Motion Start: 10/16/22 08:58 Freq: Status: Active Protocol: Document 01/05/23 14:18 [facility] (Rec: 01/05/23 16:01 [facility] [id number]) Ankle and Foot Goniometric Range of Motion Ankle and Foot Right Active Dorsiflexion with Knee Flexed 6 Dorsiflexion with Knee Extended 2 PT-OP-M Strength Start: 10/16/22 08:58 Freq: Status: Active Protocol: Document 01/05/23 14:18 [facility] (Rec: 01/05/23 16:01 [facility] [id number]) Hip Strength Hip Manual Muscle Testing Right Flexion (L2) 5 Normal Extension (S1) 4- Good- Abduction 4+ Good+ External Rotation 5 Normal Internal Rotation 4 Good Comments pain knee w/IR; pain in back w /hip ext Left Flexion (L2) 5 Normal Extension (S1) 4+ Good+ Abduction 4+ Good+ External Rotation 4 Good Internal Rotation 5 Normal Knee Strength Knee Manual Muscle Testing Right Flexion (S2) 5 Normal Extension (L3) 5 Normal Left Flexion (S2) 5 Normal Extension (L3) 5 Normal Ankle/Foot Strength Ankle and Foot Manual Muscle Testing Right Dorsiflexion (L4) 5 Normal Plantarflexion (S1) 5 Normal Inversion 5 Normal Eversion (S1) 5 Normal Comments some pain in knee w/heel raises Left Dorsiflexion (L4) 5 Normal Plantarflexion (S1) 5 Normal Inversion 5 Normal Eversion (S1) 5 Normal Comments 20 heel raises B PT-OP-Q Treatments Start: 10/16/22 08:58 Freq: Status: Active Protocol: Document 01/05/23 14:18 [facility] (Rec: 01/05/23 16:01 [facility] [id number]) Manual Therapy Treatment Soft Tissue Mobilization HS Body Location distal R Mobilization Type Rolling,Sustained Pressure Intensity/Depth Moderate Body Position Supine Comments w/active hs stretch & quad set knee Body Location itb & along lat jt line Mobilization Type Rolling Intensity/Depth Moderate calf Body Location R proximal gastroc Mobilization Type Myofascial Release,Sustained Pressure Intensity/Depth Moderate Body Position Supine Comments w/AAROM DF and quad set Joint Mobilizations tibfem Comments AP femur FM PT-OP-R Modalities Start: 10/16/22 08:58 Freq: Status: Active Protocol: Document 12/24/22 11:58 [facility] (Rec: 12/24/22 15:28 [facility] [id number]) Hot Pack/Cold Pack Treatment Cold Pack Location lumbar and R heel Patient Position Hooklying Treatment Duration (minutes) 15 PT-OP-T Assessment and Plan Start: 10/16/22 08:58 Freq: Status: Active Protocol: Document 01/05/23 14:18 [facility] (Rec: 01/05/23 16:01 [facility] [id number]) Physical Therapy Assessment Goals ROM Short Term Goal (STG) Pt will be able to get DF to neutral in both knee ext and flex to improve gait and dec tension on plantar fascia and achilles. STG Duration achieved 12/01 Geographic Information Systems Engineer Goal (LTG) Pt will be able to get DF to at least 5 deg in knee ext and 8 in flex to improve gait and dec tension on plantar fascia and achilles. 10-improved LTG Duration 03/02 balance Short Term Goal (STG) Pt will do SLS for 10 sec on RLE to show improved balance STG Duration achieved Geographic Information Systems Engineer Goal (LTG) Pt will be able to do SLS for at least 15 sec w/UEs at side and no lat lean/shear LTG Duration achieved 12/01 pain [facility] Goal (LTG) Pt will report no more than 2/ 10 pain in B knees or B foot for a week time period. 12/01-less of the burning in heel (95% better); pain still in evening charlene days she walked ; limited knee pain -occ twinges 10/-/10 in the past week at the worst LTG Duration 03/02/23 movement Short Term Goal (STG) Pt will be able to self manage pain to give relief when gets pain during the day. 12/01-pt stretching, but does note still evening pain STG Duration achieved 01/05 [facility] Goal (LTG) Pt will be able go for walks w /o pain and w/o inc pain later after the walks when transitioning from sitting. 01/05-w/really long days on her feet still has soreness LTG Duration 03/02 Assessment Summary Assessment Pt has made a lot of progress and is noting much dec pain in heel along w/burning pain gone most of the time. She has been able to go for a walk this past week and be on her feet quite a bit and manage her pain w/stretchs. She still has some aching in her heel w /longer periods of standing on her feet and some mild ankle mobility limitation. Physical Therapy Plan Frequency and Duration Frequency of Treatment 1x/Week Duration of treatment (weeks) 8 Plan of Care Start Date 01/05/23 Plan of Care End Date 03/02/23 Therapeutic Interventions Therapeutic Interventions Balance Training,Gait Training ,Home Exercise Program,Joint Mobilizations,Manual Therapy, Neuromuscular Re-education, Orthotic/Prosthetic Management ,Patient/Caregiver Education, Self-Care/Home Management,Soft Tissue Mobilization,Taping, Therapeutic Activities, Therapeutic Exercises Modalities Cold Pack/Ice Massage,Hot Packs,Infrared Therapy, Iontophoresis,Ultrasound Next Visit Focus/Plan Next Note Type Treatment Note Next Visit Plan cont to work on gait mechanics and improve hip stability for gait; manual to foot for improved positioning
--- NOTE | 2023-01-19 18:19 | PT.OTN ---
Current Diagnoses Tarsal tunnel syndrome, right lower limb (01/19/23) Flat foot [pes planus] (acquired), right foot (01/19/23) Pain in right knee (01/19/23) Pain in right foot (01/19/23) Pain in left foot (01/19/23) Difficulty in walking, not elsewhere classified (01/19/23) Unsteadiness on feet (01/19/23) Physical Therapy Treatment Note PT-OP-A Visit Information Start: 10/16/22 08:58 Freq: Status: Active Protocol: Document 01/19/23 14:23 [facility] (Rec: 01/19/23 18:19 [facility] [id number]) Out-Patient Physical Therapy Visit Information Visit Information Visit Type Treatment Note Visit Note 05/16 Visit Start Time 14:20 Visit Stop Time 15:02 Total Visit Minutes 42 Visit Number 17 Number of HEAD DOFFER Visits 0 PT-OP-B Current Condition Start: 10/16/22 08:58 Freq: Status: Active Protocol: Document 10/21/22 16:54 [facility] (Rec: 10/21/22 17:57 [facility] [id number]) Current Condition History of Current Condition Onset Date worse this spring (hx of some discomfort after long day) Current Complaints R heel pain & plantar foot pain & knee pain History of Current Condition Pt reports in June/July she started to get heel pain which progressed to burning med then lat. She started walking in May w/a friend then friend went on [place] then when she came back and they started again and thats when the pain started. It hurts a littl ein the Am and once getting moving , it gets better then in the afternoon then she starts gettng the bruning sensation around the heel. She walks aroudn 4-530. She rests and then when she goes to get up, she has trouble getting up d/t pain and then after dinner, and she gets up to go to bed and it hurts to shift wt into foot and hard to put wt into foot. She has B knee pain. Her driveway is a bit of an incline so if she walks and then walks up/down the driveway then more sore the next am. THe L is starting to ache occ. She saw on September 03 and then her R knee was really swollen and it finally is getting better recently. She tried ice and heat. Heat didn't seem to help a lot. Pt reports TIPPLE OILER told her she has R knee arthritis. She wants to go as long as she can to avoid knee replacement. She has a pacemaker d/t low HR and Afib. She thinks she has a lot of inflamation and notes her L arm swelled up. She went through tons of tests and PT thought lymphadema and she tried sleeves but they would irridate her skin so bad. Pt reports she has had stomach issues for a long time. She was on prilosec and got off that. She manages this with what she eats by inc salads etc. Describes stomach as touchy. Pt reports she has back pain when she wakes in the AM and she has trouble rolling at first but once she gets moving she is okay. Typically rare pain during the day except when really hard on it when doing gardening etc but it goes away quickly. Pt reports she initially thought it was d/t being overweight. She has a big varicose vein in post calf. She was reading about tarsal tunnel and saw taht varicose veins can be related. walking does seem to help R knee. Pt has some family members w/fibromyalgia and Lupus. Treatment Goals Patient/Caregiver Goals Be able to walk w/o pain, know what to do to help pain PT-OP-C Subjective Start: 10/16/22 08:58 Freq: Status: Active Protocol: Document 01/19/23 14:23 [facility] (Rec: 01/19/23 18:19 [facility] [id number]) OP-PT Subjective Patient Comments Patient Comments Pt reports she is about 85% better. Notices taht with the L foot gets irritated w/ inosles in PT-OP-D Balance Start: 10/16/22 08:58 Freq: Status: Active Protocol: Document 12/01/22 16:45 [facility] (Rec: 12/01/22 17:56 [facility] [id number]) Balance Tests Single Limb Standing Single Limb- Right 15 sec Single Limb- Left 18 sec PT-OP-F Manual Assessment Start: 10/16/22 08:58 Freq: Status: Active Protocol: Document 10/21/22 16:54 [facility] (Rec: 10/21/22 17:57 [facility] [id number]) Manual Assessments Soft Tissue Assessment Soft Tissue Mobility Assessment tender platnar fascia and inf heel Joint Mobility Assessment Joint Mobility Assessment B turned out, WB more on med heel, swelling more around malleoli R and calf, R rearfoot varus PT-OP-G Mobility & Gait Start: 10/16/22 08:58 Freq: Status: Active Protocol: Document 10/21/22 16:54 [facility] (Rec: 10/21/22 17:57 [facility] [id number]) OP Gait Assessment Comments Gait Comments lean lat over RLE during stance, doesn't push off w/RLE >L PT-OP-K Range of Motion Start: 10/16/22 08:58 Freq: Status: Active Protocol: Document 01/05/23 14:18 [facility] (Rec: 01/05/23 16:01 [facility] [id number]) Ankle and Foot Goniometric Range of Motion Ankle and Foot Right Active Dorsiflexion with Knee Flexed 6 Dorsiflexion with Knee Extended 2 PT-OP-M Strength Start: 10/16/22 08:58 Freq: Status: Active Protocol: Document 01/05/23 14:18 [facility] (Rec: 01/05/23 16:01 [facility] [id number]) Hip Strength Hip Manual Muscle Testing Right Flexion (L2) 5 Normal Extension (S1) 4- Good- Abduction 4+ Good+ External Rotation 5 Normal Internal Rotation 4 Good Comments pain knee w/IR; pain in back w /hip ext Left Flexion (L2) 5 Normal Extension (S1) 4+ Good+ Abduction 4+ Good+ External Rotation 4 Good Internal Rotation 5 Normal Knee Strength Knee Manual Muscle Testing Right Flexion (S2) 5 Normal Extension (L3) 5 Normal Left Flexion (S2) 5 Normal Extension (L3) 5 Normal Ankle/Foot Strength Ankle and Foot Manual Muscle Testing Right Dorsiflexion (L4) 5 Normal Plantarflexion (S1) 5 Normal Inversion 5 Normal Eversion (S1) 5 Normal Comments some pain in knee w/heel raises Left Dorsiflexion (L4) 5 Normal Plantarflexion (S1) 5 Normal Inversion 5 Normal Eversion (S1) 5 Normal Comments 20 heel raises B PT-OP-Q Treatments Start: 10/16/22 08:58 Freq: Status: Active Protocol: Document 01/19/23 14:23 [facility] (Rec: 01/19/23 18:19 [facility] [id number]) Manual Therapy Treatment Soft Tissue Mobilization plantar fascia Body Location R medial Mobilization Type Rolling Intensity/Depth Moderate Body Position seated Comments w/AAROM DF calf Body Location R distal gastroc Mobilization Type Myofascial Release,Sustained Pressure Intensity/Depth Moderate Body Position Sitting Comments w/AAROM DF Joint Mobilizations midfoot Comments 1. cuneiform 1 and 2 med glide 2. cuboid lat FM tib fib Comments distal sup FM talus Joint R Comments med glide FM Self-Care/Home Management Treatment Education Other Education 15 min: discussion re: encoruaging pt to talk to MD re: seeing cafeteria worker for all over pain. Discussed importance of wide toe box as this seems to be the big difference in her other shoes. Edu re: how to look at shoes for toe bending location, rotation of shoe, and evenness of shoe w/tipping PT-OP-R Modalities Start: 10/16/22 08:58 Freq: Status: Active Protocol: Document 12/24/22 11:58 [facility] (Rec: 12/24/22 15:28 [facility] [id number]) Hot Pack/Cold Pack Treatment Cold Pack Location lumbar and R heel Patient Position Hooklying Treatment Duration (minutes) 15 PT-OP-T Assessment and Plan Start: 10/16/22 08:58 Freq: Status: Active Protocol: Document 01/19/23 14:23 [facility] (Rec: 01/19/23 18:19 [facility] [id number]) Physical Therapy Assessment Goals ROM Short Term Goal (STG) Pt will be able to get DF to neutral in both knee ext and flex to improve gait and dec tension on plantar fascia and achilles. STG Duration achieved 12/01 Cargo Station Worker Goal (LTG) Pt will be able to get DF to at least 5 deg in knee ext and 8 in flex to improve gait and dec tension on plantar fascia and achilles. 10-improved LTG Duration 03/02 balance Short Term Goal (STG) Pt will do SLS for 10 sec on RLE to show improved balance STG Duration achieved [employer] Worker Goal (LTG) Pt will be able to do SLS for at least 15 sec w/UEs at side and no lat lean/shear LTG Duration achieved 12/01 pain [facility] Goal (LTG) Pt will report no more than 2/ 10 pain in B knees or B foot for a week time period. 12/01-less of the burning in heel (95% better); pain still in evening charlene days she walked ; limited knee pain -occ twinges 10/2-4/10 in the past week at the worst LTG Duration 03/02/23 movement Short Term Goal (STG) Pt will be able to self manage pain to give relief when gets pain during the day. 12/01-pt stretching, but does note still evening pain STG Duration achieved 01/05 Cargo Station Worker Goal (LTG) Pt will be able go for walks w /o pain and w/o inc pain later after the walks when transitioning from sitting. 01/05-w/really long days on her feet still has soreness LTG Duration 03/02 Assessment Summary Assessment Pt overall improving but discussion re: importance of making sure toe box is wide enough for her as this could affect her cont pain when walking since seh felt less pain on trip w/o walking shoes . Physical Therapy Plan Frequency and Duration Frequency of Treatment 1x/Week Duration of treatment (weeks) 8 Plan of Care Start Date 01/05/23 Plan of Care End Date 03/02/23 Next Visit Focus/Plan Next Note Type Treatment Note Next Visit Plan cont to work on gait mechanics and improve hip stability for gait; manual to foot for improved positioning
--- NOTE | 2023-01-26 14:30 | PT.OTN ---
Current Diagnoses Tarsal tunnel syndrome, right lower limb (01/26/23) Flat foot [pes planus] (acquired), right foot (01/26/23) Pain in right knee (01/26/23) Pain in right foot (01/26/23) Pain in left foot (01/26/23) Difficulty in walking, not elsewhere classified (01/26/23) Unsteadiness on feet (01/26/23) Physical Therapy Treatment Note PT-OP-A Visit Information Start: 10/16/22 08:58 Freq: Status: Active Protocol: Document 01/30/23 12:18 NB (Rec: 01/26/23 13:10 [facility] [id number]) Out-Patient Physical Therapy Visit Information Visit Information Visit Type Treatment Note Visit Note 06/13 Visit Start Time 12:18 Visit Stop Time 13:05 Total Visit Minutes 43 Visit Number 18 Number of PEARL STRINGER Visits 1 PT-OP-B Current Condition Start: 10/16/22 08:58 Freq: Status: Active Protocol: Document 10/21/22 16:54 [facility] (Rec: 10/21/22 17:57 [facility] [id number]) Current Condition History of Current Condition Onset Date worse this spring (hx of some discomfort after long day) Current Complaints R heel pain & plantar foot pain & knee pain History of Current Condition Pt reports in June/July she started to get heel pain which progressed to burning med then lat. She started walking in May w/a friend then friend went on elena then when she came back and they started again and thats when the pain started. It hurts a littl ein the Am and once getting moving , it gets better then in the afternoon then she starts gettng the bruning sensation around the heel. She walks aroudn 4-530. She rests and then when she goes to get up, she has trouble getting up d/t pain and then after dinner, and she gets up to go to bed and it hurts to shift wt into foot and hard to put wt into foot. She has B knee pain. Her driveway is a bit of an incline so if she walks and then walks up/down the driveway then more sore the next am. THe L is starting to ache occ. She saw on September 03 and then her R knee was really swollen and it finally is getting better recently. She tried ice and heat. Heat didn't seem to help a lot. Pt reports [employer] told her she has R knee arthritis. She wants to go as long as she can to avoid knee replacement. She has a pacemaker d/t low HR and Afib. She thinks she has a lot of inflamation and notes her L arm swelled up. She went through tons of tests and PT thought lymphadema and she tried sleeves but they would irridate her skin so bad. Pt reports she has had stomach issues for a long time. She was on prilosec and got off that. She manages this with what she eats by inc salads etc. Describes stomach as touchy. Pt reports she has back pain when she wakes in the AM and she has trouble rolling at first but once she gets moving she is okay. Typically rare pain during the day except when really hard on it when doing gardening etc but it goes away quickly. Pt reports she initially thought it was d/t being overweight. She has a big varicose vein in post calf. She was reading about tarsal tunnel and saw taht varicose veins can be related. walking does seem to help R knee. Pt has some family members w/fibromyalgia and Lupus. Treatment Goals Patient/Caregiver Goals Be able to walk w/o pain, know what to do to help pain PT-OP-C Subjective Start: 10/16/22 08:58 Freq: Status: Active Protocol: Document 01/26/23 12:18 NB (Rec: 01/26/23 13:10 [facility] [id number]) OP-PT Subjective Patient Comments Patient Comments Pranay reports big toe pain like a shock the last few days. Pt reports she is about 95% better. She has less pain when she wakes up in the morning and little to no pain if she takes her shoes off immediately after walking. Patient Reported Progress Improving PT-OP-D Balance Start: 10/16/22 08:58 Freq: Status: Active Protocol: Document 12/01/22 16:45 [facility] (Rec: 12/01/22 17:56 [facility] [id number]) Balance Tests Single Limb Standing Single Limb- Right 15 sec Single Limb- Left 18 sec PT-OP-F Manual Assessment Start: 10/16/22 08:58 Freq: Status: Active Protocol: Document 10/21/22 16:54 [facility] (Rec: 10/21/22 17:57 [facility] [id number]) Manual Assessments Soft Tissue Assessment Soft Tissue Mobility Assessment tender platnar fascia and inf heel Joint Mobility Assessment Joint Mobility Assessment B turned out, WB more on med heel, swelling more around malleoli R and calf, R rearfoot varus PT-OP-G Mobility & Gait Start: 10/16/22 08:58 Freq: Status: Active Protocol: Document 10/21/22 16:54 [facility] (Rec: 10/21/22 17:57 [facility] [id number]) OP Gait Assessment Comments Gait Comments lean lat over RLE during stance, doesn't push off w/RLE >L PT-OP-K Range of Motion Start: 10/16/22 08:58 Freq: Status: Active Protocol: Document 01/26/23 12:18 [facility] (Rec: 02/02/23 07:29 [facility] [id number]) Ankle and Foot Goniometric Range of Motion Ankle and Foot Right Active Dorsiflexion with Knee Flexed 8 Dorsiflexion with Knee Extended 3 PT-OP-M Strength Start: 10/16/22 08:58 Freq: Status: Active Protocol: Document 01/05/23 14:18 [facility] (Rec: 01/05/23 16:01 [facility] [id number]) Hip Strength Hip Manual Muscle Testing Right Flexion (L2) 5 Normal Extension (S1) 4- Good- Abduction 4+ Good+ External Rotation 5 Normal Internal Rotation 4 Good Comments pain knee w/IR; pain in back w /hip ext Left Flexion (L2) 5 Normal Extension (S1) 4+ Good+ Abduction 4+ Good+ External Rotation 4 Good Internal Rotation 5 Normal Knee Strength Knee Manual Muscle Testing Right Flexion (S2) 5 Normal Extension (L3) 5 Normal Left Flexion (S2) 5 Normal Extension (L3) 5 Normal Ankle/Foot Strength Ankle and Foot Manual Muscle Testing Right Dorsiflexion (L4) 5 Normal Plantarflexion (S1) 5 Normal Inversion 5 Normal Eversion (S1) 5 Normal Comments some pain in knee w/heel raises Left Dorsiflexion (L4) 5 Normal Plantarflexion (S1) 5 Normal Inversion 5 Normal Eversion (S1) 5 Normal Comments 20 heel raises B PT-OP-Q Treatments Start: 10/16/22 08:58 Freq: Status: Active Protocol: Document 01/26/23 12:18 [facility] (Rec: 01/26/23 13:10 [facility] [id number]) Therapeutic Exercises Sitting Exercises Toe flexion/extension Sitting Exercise Name 1. Great toe 2. all toes Side bilateral Reps/Minutes 15-20s ea Comments R great toe tightness noted arch raises Side bilateral Reps/Minutes 2x10 Manual Therapy Treatment Soft Tissue Mobilization plantar fascia Body Location R medial Mobilization Type Rolling Intensity/Depth Moderate Body Position seated Comments w/AAROM DF calf Body Location R distal gastroc Mobilization Type Myofascial Release,Sustained Pressure Intensity/Depth Moderate Body Position Sitting Comments w/AAROM DF Joint Mobilizations Ankle Joint R tibia Body Position Supine Comments posterior FM calcaneus Joint distraction FM Grade II Self-Care/Home Management Treatment Education Patient Education Home Exercise Program,Pain Management Other Education Evaluating PT to observe pt's walking/running shoes and advises tapered toe box may be contributing to R foot pain and to tie shoe with arch lift . Pt is i/s in toe flexion and extension stretches for HEP for limited toe mobility. Pt is i/s on making ice cups for self-massage and pain management at home. PT-OP-R Modalities Start: 10/16/22 08:58 Freq: Status: Active Protocol: Document 01/26/23 12:18 [facility] (Rec: 02/02/23 07:29 [facility] [id number]) Hot Pack/Cold Pack Treatment Ice Massage Location R heel Patient Position Hooklying Treatment Duration (minutes) 5 Patient Tolerance Good Comments Talocrural, Achilles tendon and insertion focus - positive feedback response PT-OP-T Assessment and Plan Start: 10/16/22 08:58 Freq: Status: Active Protocol: Document 01/26/23 12:18 [facility] (Rec: 01/26/23 13:10 [facility] [id number]) Physical Therapy Assessment Goals ROM Short Term Goal (STG) Pt will be able to get DF to neutral in both knee ext and flex to improve gait and dec tension on plantar fascia and achilles. STG Duration achieved 12/01 Alf Goal (LTG) Pt will be able to get DF to at least 5 deg in knee ext and 8 in flex to improve gait and dec tension on plantar fascia and achilles. 10/-improved 01/26- 3 deg in knee ext and 8 deg in flex LTG Duration 03/02 balance Short Term Goal (STG) Pt will do SLS for 10 sec on RLE to show improved balance STG Duration achieved Alf Goal (LTG) Pt will be able to do SLS for at least 15 sec w/UEs at side and no lat lean/shear LTG Duration achieved 12/01 pain Alf Goal (LTG) Pt will report no more than 2/ 10 pain in B knees or B foot for a week time period. 12/01-less of the burning in heel (95% better); pain still in evening charlene days she walked ; limited knee pain -occ twinges 10/-4/10 in the past week at the worst 01/26 - 0/10 if she gets out of shoes right away. LTG Duration 03/02/23 movement Short Term Goal (STG) Pt will be able to self manage pain to give relief when gets pain during the day. 12/01-pt stretching, but does note still evening pain STG Duration achieved 01/05 Bundle Cutter Goal (LTG) Pt will be able go for walks w /o pain and w/o inc pain later after the walks when transitioning from sitting. 01/05-w/really long days on her feet still has soreness 01/26-pt reports slight tenderness upon standing then fine, and always fine in the morning. LTG Duration 03/02 Assessment Summary Assessment Pranay presents with walking/ running shoes for evaluating PT to observe who advises tapered toe box may be contributing to foot pain and to tie shoe with arch lift. She reports hallus pain with shock on dorsal aspect of foot the past few days and is observed to have limited ROM in the R hallux compared to L and is educated on toe flexion and extension stretches for HEP. R ankle DF today is 3 deg in knee ext and 8 deg in flex . She has a positive feedback response to ice cup massage and is instructed on making her own for pain management at home. Physical Therapy Plan Frequency and Duration Frequency of Treatment 1x/Week Duration of treatment (weeks) 8 Plan of Care Start Date 01/05/23 Plan of Care End Date 03/02/23 Therapeutic Interventions Therapeutic Interventions Balance Training,Gait Training ,Home Exercise Program,Joint Mobilizations,Manual Therapy, Neuromuscular Re-education, Orthotic/Prosthetic Management ,Patient/Caregiver Education, Self-Care/Home Management,Soft Tissue Mobilization,Taping, Therapeutic Activities, Therapeutic Exercises Modalities Cold Pack/Ice Massage,Hot Packs,Infrared Therapy, Iontophoresis,Ultrasound Next Visit Focus/Plan Next Note Type Treatment Note Next Visit Plan Assess for D/C. POC: cont to work on gait mechanics and improve hip stability for gait; manual to foot for improved positioning
--- NOTE | 2023-01-29 15:29 | PT.OPDS ---
Current Diagnoses Tarsal tunnel syndrome, right lower limb (01/26/23) Flat foot [pes planus] (acquired), right foot (01/26/23) Pain in right knee (01/26/23) Pain in right foot (01/26/23) Pain in left foot (01/26/23) Difficulty in walking, not elsewhere classified (01/26/23) Unsteadiness on feet (01/26/23) Visit Care Team Role Provider Type Monisha Christopher MD Attending Provider Physician Family Provider Primary Care Provider Referring Provider Specialty: Family Practice Address: [address] [place] [address], [place] [place], [address] Email: [email or web address] Visit Number Visit Number 18 Discharge Summary PT-OP-B Current Condition Start: 10/16/22 08:58 Freq: Status: Active Protocol: Document 10/21/22 16:54 [facility] (Rec: 10/21/22 17:57 [facility] [id number]) Current Condition History of Current Condition Onset Date worse this spring (hx of some discomfort after long day) Current Complaints R heel pain & plantar foot pain & knee pain History of Current Condition Pt reports in June/July she started to get heel pain which progressed to burning med then lat. She started walking in May w/a friend then friend went on elena then when she came back and they started again and thats when the pain started. It hurts a littl ein the Am and once getting moving , it gets better then in the afternoon then she starts gettng the bruning sensation around the heel. She walks aroudn 4-530. She rests and then when she goes to get up, she has trouble getting up d/t pain and then after dinner, and she gets up to go to bed and it hurts to shift wt into foot and hard to put wt into foot. She has B knee pain. Her driveway is a bit of an incline so if she walks and then walks up/down the driveway then more sore the next am. THe L is starting to ache occ. She saw MD on September 03 and then her R knee was really swollen and it finally is getting better recently. She tried ice and heat. Heat didn't seem to help a lot. Pt reports [employer] told her she has R knee arthritis. She wants to go as long as she can to avoid knee replacement. She has a pacemaker d/t low HR and Afib. She thinks she has a lot of inflamation and notes her L arm swelled up. She went through tons of tests and PT thought lymphadema and she tried sleeves but they would irridate her skin so bad. Pt reports she has had stomach issues for a long time. She was on prilosec and got off that. She manages this with what she eats by inc salads etc. Describes stomach as touchy. Pt reports she has back pain when she wakes in the AM and she has trouble rolling at first but once she gets moving she is okay. Typically rare pain during the day except when really hard on it when doing gardening etc but it goes away quickly. Pt reports she initially thought it was d/t being overweight. She has a big varicose vein in post calf. She was reading about tarsal tunnel and saw taht varicose veins can be related. walking does seem to help R knee. Pt has some family members w/fibromyalgia and Lupus. Treatment Goals Patient/Caregiver Goals Be able to walk w/o pain, know what to do to help pain PT-OP-C Subjective Start: 10/16/22 08:58 Freq: Status: Active Protocol: Document 01/26/23 12:18 [facility] (Rec: 01/26/23 13:10 [facility] [id number]) OP-PT Subjective Patient Comments Patient Comments Pranay reports big toe pain like a shock the last few days. Pt reports she is about 95% better. PT-OP-D Balance Start: 10/16/22 08:58 Freq: Status: Active Protocol: Document 12/01/22 16:45 [facility] (Rec: 12/01/22 17:56 [facility] [id number]) Balance Tests Single Limb Standing Single Limb- Right 15 sec Single Limb- Left 18 sec PT-OP-F Manual Assessment Start: 10/16/22 08:58 Freq: Status: Active Protocol: Document 10/21/22 16:54 [facility] (Rec: 10/21/22 17:57 [facility] [id number]) Manual Assessments Soft Tissue Assessment Soft Tissue Mobility Assessment tender platnar fascia and inf heel Joint Mobility Assessment Joint Mobility Assessment B turned out, WB more on med heel, swelling more around malleoli R and calf, R rearfoot varus PT-OP-G Mobility & Gait Start: 10/16/22 08:58 Freq: Status: Active Protocol: Document 10/21/22 16:54 [facility] (Rec: 10/21/22 17:57 [facility] [id number]) OP Gait Assessment Comments Gait Comments lean lat over RLE during stance, doesn't push off w/RLE >L PT-OP-K Range of Motion Start: 10/16/22 08:58 Freq: Status: Active Protocol: Document 01/05/23 14:18 [facility] (Rec: 01/05/23 16:01 [facility] [id number]) Ankle and Foot Goniometric Range of Motion Ankle and Foot Right Active Dorsiflexion with Knee Flexed 6 Dorsiflexion with Knee Extended 2 PT-OP-M Strength Start: 10/16/22 08:58 Freq: Status: Active Protocol: Document 01/05/23 14:18 [facility] (Rec: 01/05/23 16:01 [facility] [id number]) Hip Strength Hip Manual Muscle Testing Right Flexion (L2) 5 Normal Extension (S1) 4- Good- Abduction 4+ Good+ External Rotation 5 Normal Internal Rotation 4 Good Comments pain knee w/IR; pain in back w /hip ext Left Flexion (L2) 5 Normal Extension (S1) 4+ Good+ Abduction 4+ Good+ External Rotation 4 Good Internal Rotation 5 Normal Knee Strength Knee Manual Muscle Testing Right Flexion (S2) 5 Normal Extension (L3) 5 Normal Left Flexion (S2) 5 Normal Extension (L3) 5 Normal Ankle/Foot Strength Ankle and Foot Manual Muscle Testing Right Dorsiflexion (L4) 5 Normal Plantarflexion (S1) 5 Normal Inversion 5 Normal Eversion (S1) 5 Normal Comments some pain in knee w/heel raises Left Dorsiflexion (L4) 5 Normal Plantarflexion (S1) 5 Normal Inversion 5 Normal Eversion (S1) 5 Normal Comments 20 heel raises B PT-OP-T Assessment and Plan Start: 10/16/22 08:58 Freq: Status: Active Protocol: Document 01/29/23 12:56 [facility] (Rec: 01/29/23 15:29 [facility] [id number]) Physical Therapy Assessment Goals ROM Short Term Goal (STG) Pt will be able to get DF to neutral in both knee ext and flex to improve gait and dec tension on plantar fascia and achilles. STG Duration achieved 12/01 Penitentiary Goal (LTG) Pt will be able to get DF to at least 5 deg in knee ext and 8 in flex to improve gait and dec tension on plantar fascia and achilles. 01/05-improved 01/26- LTG Duration last measured at beginning of month and much improved balance Short Term Goal (STG) Pt will do SLS for 10 sec on RLE to show improved balance STG Duration achieved Writing Center Director Goal (LTG) Pt will be able to do SLS for at least 15 sec w/UEs at side and no lat lean/shear LTG Duration achieved 12/01 pain Penitentiary Goal (LTG) Pt will report no more than 2/ 10 pain in B knees or B foot for a week time period. 12/01-less of the burning in heel (95% better); pain still in evening charlene days she walked ; limited knee pain -occ twinges 10/-4/10 in the past week at the worst 01/26 - 0/10 if she gets out of shoes right away. LTG Duration occ pain w/first steps but then loosens up movement Short Term Goal (STG) Pt will be able to self manage pain to give relief when gets pain during the day. 12/01-pt stretching, but does note still evening pain STG Duration achieved 01/05 Penitentiary Goal (LTG) Pt will be able go for walks w /o pain and w/o inc pain later after the walks when transitioning from sitting. 01/05-w/really long days on her feet still has soreness 01/26-pt reports slight tenderness upon standing then fine, and always fine in the morning. LTG Duration did well on trip, if take her shoes off after, does bettter Assessment Summary Assessment Pt has made excellent progress w/PT and is noting much dec pain. She has been returning to walking and if she takes her shoes off right after, she does okay for the rest of the day. She can sometimes be stiff when first getting up but that improves as she gets moving. She is indep w/her HEP and has insoles to improve R foot support. Pt DC to HEP at this time. Physical Therapy Plan Discharge Physical Therapy Discharge Reasons Goals Met
== END 2023-02-03 12:14 | disposition home or self-care (01) ==
LOC: PHYS 12:15
PROVIDERS: Family Provider Family Medicine; PCP Family Medicine; Referring Provider Family Medicine; Visit Provider Family Medicine
DX: M79.671 Pain in right foot (principal); G57.51 Tarsal tunnel syndrome, right lower limb; M21.41 Flat foot [pes planus] (acquired), right foot; R26.81 Unsteadiness on feet; M25.561 Pain in right knee; M79.672 Pain in left foot
CPT/HCPCS: 97110; 97116; 97140; 97162; 97530; 97535; 97750

== ENCOUNTER → 2023-02-04 13:35 | Outpatient (CLI) | payer MEDICARE, SELFPAY | PROVIDERS: Family Provider Family Medicine; PCP Family Medicine; Referring Provider Family Medicine; Visit Provider Family Medicine | DX: J45.990 Exercise induced bronchospasm (principal); Z77.22 Contact with and (suspected) exposure to environmental tobacco smoke (acute) (chronic) | CPT/HCPCS: 94060; 94726; 94729 ==

== ENCOUNTER → 2023-07-21 10:02 | Outpatient (CLI) | payer MEDICARE, SELFPAY ==
--- NOTE | 2023-07-21 10:04 | DI.NM.S_ITS ---
PROCEDURE: NM SHAKIRA PERF SPECT R&S PHARM Rest and pharmacological stress myocardial perfusion SPECT with gated imaging and ejection fraction RADIOPHARMACEUTICAL: 24.7 mCi Tc-99m tetrafosmin IV at rest and 25.2 mCi Tc-99m tetrafosmin IV at peak effect of pharmacological stress. [id number] was performed. INDICATIONS: Chest pain, unspecified TECHNIQUE: Radiopharmaceutical was injected at peak stress test, and also at rest. SPECT images were obtained. SPECT myocardial perfusion images were displayed in short axis, horizontal long axis, and vertical long axis views. Gated images were reviewed using Edkimo software. COMPARISON: None. CARDIAC STRESS: An exercise stress test was performed on a standard Lenin protocol for: 50, maximum heart rate 108 bpm (73% peak predicted; the patient took metoprolol succinate 25 mg the night before the test), maximum blood pressure 160/90, 10.1 METS, WILFRIDO 13%. The patient developed fatigue and dyspnea and so the test was switched to pharmacologic. A pharmacologic stress test was then performed under the supervision of an attending staff, using an infusion of regadenoson 0.4 mg IV. Hemodynamic data: There is normal blood pressure and heart rate response to pharmacologic stress. Symptoms: The patient denied anginal chest pain. EKG: No diagnostic changes of ischemia during the exercise portion of the test albeit at submaximal heart rate; no ectopy. FINDINGS: Raw data: There is good myocardial uptake of radiotracer. No significant motion artifacts. Iydb-ft-hknwq ratio is 0.41 (normal is less than 0.38 for tetrafosmin tracer). Left ventricle function: Gated images demonstrate normal left ventricular wall thickening. No segmental wall motion abnormalities. No transient ischemic dilation; TID is 1.09 (normal less than 1.3). Left ventricle resting end diastolic volume is 91 mL. Left ventricle stress ejection fraction is 73%; normal range is above 45%. Myocardial perfusion: There is normal distribution of activity in the right and left ventricular myocardium. No fixed or reversible perfusion defects. IMPRESSION: Exercise stress testing to submaximal heart rate did not result in any ECG changes. This was followed by a low risk pharmacologic nuclear stress test without evidence of inducible ischemia or scar on SPECT images. Normal LV size and function. Dictated by: Lora Lima D.O. on 07/23/2023 at 16:15 Approved by: Lora Lima D.O. on 07/23/2023 at 16:21
== END ==
LOC: NUCM 10:03
PROVIDERS: Family Provider Family Medicine; PCP Family Medicine; Referring Provider Family Medicine; Visit Provider Family Medicine
DX: R07.9 Chest pain, unspecified (principal); R42 Dizziness and giddiness; R55 Syncope and collapse; R06.09 Other forms of dyspnea
CPT/HCPCS: 78452; 93017; A9502; J2785

== ENCOUNTER → 2023-07-24 13:16 | Outpatient (CLI) | payer MEDICARE, SELFPAY ==
--- NOTE | 2023-07-24 | DI.MG.S_ITS ---
BILATERAL DIGITAL SCREENING MAMMOGRAM 3D/2D WITH CAD: 07/24/2023 CLINICAL: Routine screening. Comparison is made to exams dated: 07/21/2022 mammogram, 07/03/2021 mammogram, 06/29/2020 mammogram, and 06/14/2019 mammogram - [facility]. There are scattered areas of fibroglandular density in both breasts (category b / 25%-50% glandular tissue). Current study was also evaluated with a Computer Aided Detection (CAD) system. There is a biopsy clip in the right breast. No significant masses, calcifications, or other findings are seen in either breast. There has been no significant interval change. IMPRESSION: NEGATIVE There is no mammographic evidence of malignancy. A 1 year screening mammogram is recommended. Based on the Tyrer Cuzick model (a risk assessment model) the patient's lifetime risk is 3.5% and her 10 year risk is 2.6%. According to the ACR, ACS, and NCCN guidelines, an annual breast MRI exam along with mammogram is recommended if the patient's lifetime risk is 20% or greater. This exam was interpreted at Station ID: [id number]. NOTE: For mammograms, a report in lay terms will be sent to the patient. Approximately 15% of breast malignancies will not be visualized mammographically. In the management of a palpable breast mass, a negative mammogram must not discourage biopsy of a clinically suspicious lesion. Electronically Signed By: Bob lyle/glne:07/24/2023 14:33:16 letter sent: Normal Exam ACR BI-RADS Category 1: Negative [id number]
== END ==
PROVIDERS: Family Provider Family Medicine; PCP Family Medicine; Referring Provider Family Medicine; Visit Provider Family Medicine
DX: Z12.31 Encounter for screening mammogram for malignant neoplasm of breast (principal); R92.323 Mammographic fibroglandular density, bilateral breasts
CPT/HCPCS: 77063; 77067

== ENCOUNTER → 2024-05-04 17:07 | Outpatient (CLI) | payer MEDICARE, OTHER, SELFPAY ==
--- NOTE | 2024-05-04 17:12 | DI.RAD.S_ITS ---
PROCEDURE: XR CHEST 2V INDICATIONS: COUGH TECHNIQUE: 2 views of the chest were acquired. COMPARISON: [facility], CR, XR CHEST 2V, 06/13/2021, 15:47. [facility], CR, XR CHEST 2V, 01/28/2021, 11:13. FINDINGS: Surgical changes and devices: Left chest wall pacemaker. Lungs and pleura: Lungs are clear. No pleural effusions or pneumothorax. Mediastinum: Mediastinal contours are normal. Heart size is normal. Bones and chest wall: No suspicious bony abnormalities. Soft tissues appear unremarkable. IMPRESSION: No acute cardiopulmonary abnormality is seen. Dictated by: Enrique Cunningham M.D. on 05/05/2024 at 16:04 Approved by: Enrique Cunningham M.D. on 05/05/2024 at 16:04
== END ==
PROVIDERS: Family Provider Family Medicine; PCP Family Medicine; Referring Provider Family Medicine; Visit Provider Family Medicine
DX: R05.2 Subacute cough (principal)
CPT/HCPCS: 71046

== ENCOUNTER → 2024-06-06 12:30 | Outpatient (CLI) | payer MEDICARE, OTHER, SELFPAY ==
--- NOTE | 2024-06-06 12:32 | DI.RAD.S_ITS ---
PROCEDURE: XR SHOULDER LT MIN 2V INDICATIONS: ROTATOR CUFF PAIN TECHNIQUE: 3 views of the shoulder were acquired. COMPARISON: None. FINDINGS: Bones: No fractures or dislocations. The humeral head is mildly high-riding and there is mild glenohumeral joint space narrowing with marginal osteophytosis. Moderate hypertrophic acromioclavicular arthropathy is noted with mild joint space narrowing. No suspicious bony lesions. Visualized ribs appear intact. Soft tissues: No suspicious soft tissue calcifications. Left anterior chest wall dual lead cardiac pacing device partially visualized. Atrial appendage closure device seen on the inferior margin of the image. IMPRESSION: Degenerative change of the glenohumeral and acromioclavicular joints without evidence of acute osseous abnormality. Dictated by: Sree Unger M.D. on 06/07/2024 at 5:24 Approved by: Sree Unger M.D. on 06/07/2024 at 5:25
== END ==
PROVIDERS: Family Provider Family Medicine; PCP Family Medicine; Referring Provider Family Medicine; Visit Provider Family Medicine
DX: M75.82 Other shoulder lesions, left shoulder (principal)
CPT/HCPCS: 73030

== ENCOUNTER → 2024-07-25 14:45 | Outpatient (CLI) | payer MEDICARE, OTHER, SELFPAY ==
--- NOTE | 2024-07-25 14:46 | DI.MG.S_ITS ---
MM screening mammo BI: 07/25/2024. BI-RADS: 2 CLINICAL: 74-year old female for bilateral screening mammogram. Tyrer-Cuzick lifetime risk of 2.5%. No personal or first-degree family history of breast cancer. The patient had a prior right breast biopsy. PRIOR EXAMS 07/24/2023, 07/21/2022, 07/03/2021, 06/29/2020, 01/25/2020, 06/23/2019, 06/14/2019, 06/10/2018, 05/28/2018, 05/26/2017, 05/15/2017, 04/23/2016, 03/07/2015. MAMMOGRAPHY TECHNIQUE: 2D and 3D (tomosynthesis) digital mammographic views obtained, with additional images as needed for full coverage. Current study was also evaluated with a Computer Aided Detection (CAD) system. DENSITY B. There are scattered areas of fibroglandular density. MAMMOGRAPHY FINDINGS Right: Biopsy marker present on the right. There are no suspicious masses, calcifications, or other findings in the breast. No significant change from comparison. Left: No suspicious mass, asymmetry, microcalcification, or other abnormality seen. No significant change from comparison. IMPRESSION: Right * No evidence of malignancy with benign findings. Left * No evidence of malignancy. RECOMMENDATIONS Bilateral * Annual screening mammography. OVERALL ASSESSMENT CATEGORY BI-RADS-2: Benign. The [employer] recommends annual screening mammography beginning at age 40 for women with average risk of breast cancer. ELECTRONICALLY SIGNED: Jocelyn Collins M.D. on 07/26/2024 at 05:38:22 PM PT Interpreting Station ID: [id number]
== END ==
PROVIDERS: Family Provider Family Medicine; PCP Family Medicine; Referring Provider Family Medicine; Visit Provider Family Medicine
DX: Z12.31 Encounter for screening mammogram for malignant neoplasm of breast (principal)
CPT/HCPCS: 77063; 77067

== ENCOUNTER → 2024-11-02 08:01 | Outpatient (CLI) | payer MEDICARE, OTHER, SELFPAY ==
--- NOTE | 2024-11-02 08:02 | DI.US.S_ITS ---
PROCEDURE: US ABDOMEN LIMITED INDICATIONS: hyperbilirubin TECHNIQUE: Real-time scanning was performed of the abdominal and retroperitoneal organs, with image documentation. COMPARISON: [facility], CT, CT ABDOMEN ADRENAL PROTOCOL, 10/21/2021, 12:35. FINDINGS: Liver: Heterogeneous appearance of the liver parenchyma, without distinct mass. Gallbladder: No gallstones. No wall thickening. No pericholecystic edema. Negative sonographic Mueller's sign. Biliary ducts: Intrahepatic bile ducts are non-dilated. Extrahepatic bile duct caliber measures 4 mm. Normal is 6-7 mm or less in diameter, or 10 mm or less post-cholecystectomy. Pancreas: Visualized portions of the pancreas are sonographically normal. Miscellaneous: No free abdominal fluid. IMPRESSION: Heterogeneous appearance of the liver parenchyma, without distinct mass. Findings probably represent underlying geographic steatosis. If there is elevated LFTs, MRI with contrast could be considered for better characterization. No gallbladder or biliary pathology identified. Dictated by: Kin Mantilla M.D. on 11/02/2024 at 12:37 Approved by: Kin Mantilla M.D. on 11/02/2024 at 12:44
== END ==
LOC: US 08:02
PROVIDERS: Family Provider Family Medicine; PCP Family Medicine; Referring Provider Family Medicine; Visit Provider Family Medicine
DX: E80.6 Other disorders of bilirubin metabolism (principal)
CPT/HCPCS: 76705